=== PATIENT | male | born 1940 | race Caucasian/White ===

== ENCOUNTER 2019-05-01 08:30 | Outpatient (RCR) | payer MEDICARE, SELFPAY ==
[2018-10-10 14:31] VITALS: BMI 32.5
--- NOTE | 2019-03-21 10:01 | HP.PTEVAL_ITS ---
Patient's Visit Information KIARA HAYWOOD is a 78 year old M referred to Physical Therapy by ISAIAH Grant with a diagnosis of Left Shoulder Pain. Date of Evaluation: 03/21/19 Physical Therapist: Elsie Stern DPT - Visit Plan Frequency: 2x /Week Duration: 4 Weeks Plan: Focus on scapular s/s and postural corrections. US and TENS as modalities. - Subjective Findings: Patient reports that he has had probems with both shoulders- but the right one bounced back but the left isn't doing great. Tore out property line fence- burning it- picked up a gas can and felt it go. They have been bothering him since summer. Worst at night- he has been sleeping in a chair with a sling the last month and a half. The only position it does not throb. Pain is located in the shoulder and radiate down to the elbow and into the scapula. Worst: 7/10 Agg: sleeping, movement. Eases: bringing it back to the side and keeping the elbow into the side. Describes the pain as pulsating. No blurred vision, dizziness, BARDALES or neck pain. No issues with finger dexterity, benzene worker strength or N/T in the hands. Right hand dominate. Has had no x-rays or MRI. [place] it was improving but it flared again-No injections or medications just sent him to therapy. Meds: none PMHx: Bilateral TKR, back surgery, Bone spur removal on the left shoulder a long time ago- fully recovered. 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 - Objective Posture: FH, RS, increased kyphosis- can correct but does not maintain. Gait: no LE deviation noted- slight decrease in arm swing on the left. Palpation: tender along upper trap, infraspinatus, bicpital groove and down the deltoid. ROM: WFL in all planes but reports pain with abduction and IR. Strength: Ip Technology Transactions Attorney/Wrist: WNL, Elbow: flexion: 4+/5, Extn: 4/5 with pain. Shoulder: flexion/abd: 3+/5 with pain, IR: 4-/5 and ER: 4-/5 with pain. Extn: 4+/5. Special Test: Impingment: positive, Empty Can: positive, Belly lift off: positi ve - Goals Goal 1:: Patient will be I with HEP and progression Goal Time Frame: 4-6 Weeks Goal 2:: Patient will maintain proper posture t/o tx session to demo increased scap s/s. Goal Time Frame: 4-6 Weeks Goal 3:: Patient will report sleeping through the night with no pain in his bed for 3 days Goal Time Frame: 4-6 Weeks Goal 4:: Patient will demo full AROM of the left shoulder with no pain Goal Time Frame: 4-6 Weeks - Rehabilitation Potential Physical Therapy Diagnosis: Patient presents with hypomobility- he has decreased painfree ROM, strength and muscular endurance leading to poor posture and increased pain with ADL's. Rehabilitation Potential: Fair - Anticipated Interventions Therapeutic Exercise to Include: Strength training, Endurance training, Body mechanics, Postural training, Scapular Strength/Stabilization TENS: Yes Cryotherapy (ice pack, ice massage): Yes Thermo therapy (hot pack): Yes Ultrasound (thermal/non thermal): Yes Thank you for the opportunity to evaluate your patient. For Medicare and Medicare HMO plans, please review the plan of care and approve it. It will need to be FAXED BACK to us at [phone] for Medicare purposes. For Medicare only, by signing this I certify the plan of care. Please let me know if there are questions or concerns regarding this plan of care. Physician Signature:__ Date:
--- NOTE | 2019-05-01 09:54 | HP.PTDCSUM ---
HP - PT D/C Summary It has been my pleasure to treat KIARA HAYWOOD under orders from ISAIAH Grant, for the diagnosis of Left Shoulder Pain for a total of 11 visit(s). Discharge Date: Please see the following information for a summary of their discharge status. - Subjective Subjective: Patient reports that the single motion of ER is still really bothering him. He is still having a lot of difficulty at night- he has to watch how he lays. Its improving but it still bothers him- he has been able to run a drill overhead - Overall Improvement % Improvement: 90 - Objective Objective/Function: Posture: fair posture. Gait: no LE deviation noted Palpation: tender along upper trap, infraspinatus, bicpital groove and down the deltoid. ROM: WFL in all planes but reports pain with ER. Strength: Plant Facilities Technician/Wrist: WNL, Elbow: flexion: 4+/5, Extn: 4+/5. Shoulder: flexion/abd: 4/5, IR: 4/5 and ER: 4/5 with pain. Extn: 4+/5. Special Test: Impingment: positive, Empty Can: positive, Belly lift off: positive - Goals Goal 1:: Patient will be I with HEP and progression Goal Progress: Goal Met Goal 2:: Patient will maintain proper posture t/o tx session to demo increased scap s/s. Goal Progress: Progressing Goal 3:: Patient will report sleeping through the night with no pain in his bed for 3 days Goal Progress: Progressing Goal 4:: Patient will demo full AROM of the left shoulder with no pain Goal Progress: Progressing - Plan Plan: Discharge- possible follow up with ortho - D/C Information If there are questions or concerns regarding this patient's physical therapy, please feel free to call me at [phone]. Thank you for the referral of this patient. Sincerely, Elsie Stern DPT
== END 2019-05-01 19:00 | disposition home or self-care (01) ==
LOC: PT 08:30
PROVIDERS: Family Provider Preventive Medicine Occupational Medicine; PCP Preventive Medicine Occupational Medicine; Referring Provider Physician Assistant Surgical; Visit Provider Physician Assistant Surgical
DX: M75.82 Other shoulder lesions, left shoulder (principal)
CPT/HCPCS: 97110; 97161; 97164

== ENCOUNTER → 2019-09-18 08:41 | Outpatient (CLI) | payer MEDICARE, SELFPAY ==
[2019-09-18 08:39] VITALS: BMI 32.5
--- NOTE | 2019-09-18 08:42 | RAD_ITS ---
STUDY: X-RAY - LEFT FOOT CLINICAL: Male, 79 years old. WOUND DISTAL 1ST AND 2ND METATARSAL TECHNIQUE: 3 view(s) of the foot. COMPARISON: None. FINDINGS: There is a plantar calcaneal spur. Normal visualized subtalar, talonavicular, calcaneocuboid, tarsal and tarsometatarsal articulations. Normal metatarsi. There is degenerative arthrosis of the metatarsophalangeal joint of the hallux with a hallux valgus deformity. Normal tibial and fibular sesamoid bones. Normal interphalangeal joint of the great toe. Normal phalanges of the great toe. Normal second through fifth metatarsophalangeal joints. Degenerative changes at the second metacarpophalangeal joint. Soft tissue swelling overlying the great toe. RAD/Foot min 3 Views IMPRESSION: Soft tissue swelling overlying the great toe. Degenerative changes of the first metatarsophalangeal joint with hallux valgus deformity. Electronically Signed: Tobin Pak, at 9:26 EDT , Service support ,
== END ==
PROVIDERS: PCP Preventive Medicine Occupational Medicine; Referring Provider Physician Assistant Surgical; Visit Provider Physician Assistant Surgical
DX: S91.302A Unspecified open wound, left foot, initial encounter (principal)
CPT/HCPCS: 73630

== ENCOUNTER → 2022-03-26 | Outpatient (CLI) | payer MEDICARE, SELFPAY ==
--- NOTE | 2022-03-26 10:52 | ST.MBS ---
Modified Barium Swallow - Patient Information Study Date: 03/26/22 Study Time: 10:00 Direct Billable Minutes: 85 Total Minutes procedure & reportin Diagnosis: Dysphagia, unspecified (R13.10) Referring Physician: Gary Minor Reason for Referral: Objectively assess swallow function, risk for aspiration, and determine recommendations for least restrictive diet textures and compensatory strategies to improve safety of swallow. Medical History: The patient is a 81-year-old male with PMH including hiatal hernia, NELLY, septum surgery, and GERD. Per patient, he has been following with Dr. Minor for swallowing difficulty. His swallowing difficulty started ~1 year ago and is characterized by difficulty with sensation of retention of foods (most of the time) in his middle esophagus followed by hiccups, coughing, and regurgitation of foods. Per patient, he has had a previous test where he had to swallow something chalky and it went down the wrong way. The study was discontinued. From pt description, FOUNTAIN MANAGER is suspecting aspiration event during a barium esophagram. Pt also reported he had and upper GI last week with no significant findings able to be reported by the patient, but he thinks he may have been dilated upon FOUNTAIN MANAGER asking. Study confirmed he has a large hiatal hernia per patient report. He was referred for MBSS by Dr. Minor to further assess concerns for dysphagia and aspiration risk. Current Diet Ordered: Regular textures / Thin liquids Dentition: WNL Mental Status: WNL - Some difficulty reporting details and results of recent GI testing. Respiratory Status: Oxygenating on Room Air - Penetration-Aspiration Scale Penetration-Aspiration Scale: OBJECTIVE ASSESSMENT OF SWALLOW FUNCTION (QUANTITATIVE ? PER TRIAL): PENETRATION / ASPIRATION SCALE (ESTRADA): 1 = does not enter airway 2 = enters airway/above vocal folds/ejected 3 = enters airway/above vocal folds/not ejected 4 = enters airway/contacts vocal folds/ejected 5 = enters airway/contacts vocal folds/not ejected 6 = enters airway/below vocal folds/ejected 7 = enters airway/below vocal folds/not ejected despite effort 8 = enters airway/below vocal folds/no effort VIDEOFLOROSCOPIC SCALE SCORE (ESTRADA): Grade I = aspiration of material that has penetrated into the laryngeal vestibule, intact cough reflex Grade II = aspiration < 10 % of the bolus, intact cough reflex Grade III = aspiration of < 10 % of the bolus, reduced cough reflex or aspiration of > 10 % of the bolus, intact cough reflex Grade IV = aspiration of > 10 % of the bolus, reduced cough reflex - Penetration-Aspiration Scale Score Thin Liquid via teaspoon Result: 1= does not enter airway Thin Liquid via teaspoon Trial 2 Result: 2= enter airway/above vocal folds/ejected Thin Liquid via large single sip from cup Result: 1= does not enter airway Thin Liquid via sequential sips from cup Result: 2= enter airway/above vocal folds/ejected Stoddard Thick Liquid via small single sip from cup Result: 1= does not enter airway Honey Thick Liquid via small single sip from cup Result: 1= does not enter airway Pudding via teaspoon with esophageal screen Result: 1= does not enter airway Thin Liquid via single sip from straw with esophageal screen Result: 2= enter airway/above vocal folds/ejected 1/2 Cookie Result: 1= does not enter airway Thin Liquid via sequential sips from straw with esophageal screen Result: 2= enter airway/above vocal folds/ejected - Oral Phase Labial Seal: No Labial Escape Tongue Control During Bolus Hold: Posterior escape of less than half of bolus Bolus Preparation/Mastication: Timely and efficient chewing and mashing Bolus Transport/Lingual Motion: Brisk tongue motion Oral Residue: Trace residue lining oral structures - Pharyngeal Phase Initiation of Pharyngeal Swallow: Bolus head at posterior laryngeal surgace of epiglottis Soft Palate Elevation: Trace column of contrast/air between soft palate and pharyngeal wall Laryngeal Elevation: Partial superior movement thyroid cart/partial apprx aryt-epig petiole Anterior Hyoid Excursion: Complete anterior movement Epiglottic Movement: Complete inversion Laryngeal Vestibule Closure at Height of Swallow: Incomplete; narrow column of air/contrast in laryngeal vestibule Pharyngeal Stripping Wave: Present - complete Pharyngoesophageal Segment Opening: Parital distension and partial duration; parital obstruction of flow Tongue Base Retraction: Narrow column of contrast between tongue base & post. pharyngeal wall Pharyngeal Residue: Trace residue within or on pharyngeal structures - Esophageal Phase Esophageal Clearance: Esophageal retention w/ retrograde flow through pharyngoesophageal seg - Treatment Strategies Effects of treatment strategies attemped:: Thin liquid wash to clear esophageal retention = Effective. - Diagnosis/Impression Diagnosis: Oropharyngeal swallow function grossly WNL; Esophageal dysphagia (R13.14) Impression: Overall, the patient presented with a functional oropharyngeal swallow and good airway closure during the swallow. He had mild delay initiating the swallow and mildly reduced laryngeal elevation; however, he experienced only trace laryngeal penetration of certain thin liquid trials with full ejection from the laryngeal vestibule. No aspiration observed during the study. The patient did present with some esophageal deficits, including trace retention in upper esophagus with trace retrograde flow through the upper esophageal sphincter (UES). He did present with cervical osteophytes at the level of C5-C6. He also presented with esophageal retention of majority pudding bolus in the lower and middle esophagus with retrograde flow remaining below the UES. Thin liquid wash effectively cleared esophageal retention of pudding bolus. Final esophageal screen of sequential thin liquids via straw showed good esophageal clearance, as well. The FOUNTAIN MANAGER feels he will greatly benefit from use of alternating bites and sips to decrease risk for esophageal retention with eventual regurgitation, as well as his risk for reflux aspiration. Will recommend the patient follow-up with his elevator installer, Dr. Minor, regarding the results of this study. - Recommendations Diet: Regular Textures, Thin Liquids Comment: If continued retention and regurgitation despite use of strategies, will recommend consuming 4-5 smaller meals daily versus 3 larger meals. Compensatory Strategies: Small Bites, Small Sips, Slow Rate - Sips one at a time, Alternate bites/solids and sips/liquids - Take a drink after every 1-2 bites, Sitting upright, Remain sitting upright for 30 minutes after PO intake Recommend Repeat Modified Barium Swallow: No Need for Skilled Speech Therapy Services: No Recommended Referrals: GI Consult - Continue to follow with Dr. Minor to manage esophageal deficits described above. Education Completed: 1. Described result of evaluation., 5. Patient demonstrates recommended strategies. - Status Active ST Patient: Active - Contact Information [facility] Speech Therapy:: Ceci May M.A. [facility]NA[facility] Speech-Language Pathologist [facility] [address] [place] [address] [email or web address] [phone] 03/26/22 11:13
== END | disposition home or self-care (01) ==
LOC: RAD 09:55
PROVIDERS: PCP Preventive Medicine Occupational Medicine; Referring Provider Internal Medicine Gastroenterology; Visit Provider Internal Medicine Gastroenterology
DX: R13.10 Dysphagia, unspecified (principal); T18.128A Food in esophagus causing other injury, initial encounter; X58.XXXA Exposure to other specified factors, initial encounter
CPT/HCPCS: 74230; 92611

== ENCOUNTER → 2022-04-08 | Outpatient (CLI) | payer MEDICARE, SELFPAY ==
--- NOTE | 2022-04-08 06:51 | CT_ITS ---
STUDY: CT RIGHT SHOULDER REASON FOR EXAM: Male, 82 years old. PAIN IN RT SHOULDER. RADIATION DOSAGE (If Supplied By Facility): CTDIvol = ( 33.34 ) mGy, DLP = ( 932.93 ) mGycm TECHNIQUE: The patient was scanned in a multi detector CT scanner. High resolution transaxial imaging was performed without the administration of intravenous contrast material. Sagittal and coronal images were reconstructed. Individualized dose optimization techniques were used for this CT. COMPARISON: None. FINDINGS: There is moderate osteoarthritis, with moderate articular joint space narrowing and moderate osteoarthritic spurring. Decreased space between the humeral head and the acromion suggestive of rotator cuff pathology. Normal glenoid rim, neck and visualized scapula. Degenerative change are seen in the region of the greater tuberosity of the proximal humerus. Normal coracoid process. Normal visualized lateral clavicle. There is severe hypertrophic osteoarthritis with prominent osseous hypertrophy, with a potential for impingement upon the supraspinatus muscle. There is a Type II morphology (curved), with a neutral orientation. Normal visualized muscles and soft tissue structures. CT/Extremity Upper without Contra IMPRESSION: Hypertrophic osteoarthritis of the acromioclavicular joint as well as osteoarthritis of the glenohumeral joint. Decreased space between the humeral head and the acromion suggestive of rotator cuff pathology. Degenerative changes are seen in the region of the greater tuberosity of the proximal humerus. Electronically Signed: Tobin Pak MD at 14:20 EST ,
== END | disposition home or self-care (01) ==
PROVIDERS: PCP Preventive Medicine Occupational Medicine; Referring Provider Student in an Organized Health Care Education/Training Program; Visit Provider Student in an Organized Health Care Education/Training Program
DX: M19.011 Primary osteoarthritis, right shoulder (principal)
CPT/HCPCS: 73200

== ENCOUNTER 2022-05-06 17:06 | Observation (INO) | payer MEDICARE, SELFPAY ==
--- NOTE | 2022-04-23 07:55 | RAD_ITS ---
INDICATION: PRE-OP EXAMINATION/TECHNIQUE: X-RAY - XR Chest 2 Views COMPARISON: None. FINDINGS: The lungs are clear. Tortuous and calcified thoracic aorta. The heart is not enlarged. No pleural effusion or pneumothorax. Degenerative changes of the thoracic spine. RAD/Chest PA and Lateral IMPRESSION: No acute radiographic abnormalities. Electronically Signed: Elias Pacheco MD at 16:47 EST ,
--- NOTE | 2022-04-23 07:55 | EKG12_ITS ---
Test Reason : PRE OP Blood Pressure : / mmHG Vent. Rate : 072 BPM Atrial Rate : 072 BPM P-R Int : 240 ms QRS Dur : 092 ms QT Int : 362 ms P-R-T Axes : 059 066 087 degrees QTc Int : 396 ms Sinus rhythm with 1st degree A-V block Nonspecific T wave abnormality Abnormal ECG Confirmed by SANIYA DELGADILLO, ARLINE ([id number]), sports editor SHON HARRIS ([id number]) on 04/26/2022 10:40:32 AM Referred By: ROOSEVELT Confirmed By:ARLINE KOTHARI MD
[2022-04-23 09:29] LABS: Absolute Lymphocyte Count 1.71 X10^3/uL (0.83-4.51); Absolute Neutrophil Count 3.8 X10^3/uL (2.0-7.7); Basophil# 0.04 X10^3/uL; Basophil% 0.6 % (0-1); Eosinophil# 0.07 X10^3/uL; Eosinophils% 1.1 % (0-5); Hematocrit 48.9 % (40-54); Hemoglobin 16.5 g/dL (13.0-16.5); Lymphocyte # 1.71 X10^3/ul (0.83-4.51); Lymphocyte % 26.5 % (19-41); Mean Corp Hgb Conc 33.7 g/dL (32-36); Mean Corpuscular Hgb 30.9 pg (27.0-32.0); Mean Corpuscular Volume 91.6 fL (80-94); Monocyte# 0.87 X10^3/uL; Monocyte% 13.5 % (0-10); NRBC Flagged by Analyzer 0 % (0-5); Neutrophil # 3.76 X10^3/uL (2.7-7.7); Neutrophil % 58.1 % (47-70); Platelet Count 211 K/mm3 (150-450); RBC Distribution Width SD 47.4 fl (35.1-43.9); Red Blood Count 5.34 M/mm3 (4.6-6.2); White Blood Count 6.5 K/mm3 (4.4-11.0)
[2022-04-23 09:53] LABS: Anion Gap 10 (5-15); BUN 25 mg/dL (7-18); Calcium,Total 9.4 mg/dL (8.5-10.1); Chloride 105 mmol/L (98-107); Creatinine, Serum 0.96 mg/dL (0.70-1.30); EST Glomerular Filtration Rate 80 mL/min (>60); Est Glom Filt Rate - Afr Amer 96 mL/min (>60); Glucose 124 mg/dL (74-106); Sodium Level 141 mmol/L (136-145)
[2022-04-23 10:06] LABS: Magnesium 2.1 mg/dL (1.6-2.6); Thyroid Stim Hormone (TSH) 3.87 uIU/mL (0.358-3.74)
[2022-05-06] VITALS (8 sets, daily range): BP systolic 122–172; BP diastolic 55–92; PULSE 69–87; RESP 16–18; TEMP 36.4–36.8; O2SAT 93–97; BMI 32.8
[2022-05-06] MEDS: Lactated Ringers 1,000 ML 15 ML IV ×2 (11:30→18:13)
[2022-05-06] MEDS: Celecoxib 200 MG Capsule 400 MG PO (11:35)
[2022-05-06] MEDS: Gabapentin 600 MG Tablet PO (11:35)
[2022-05-06] MEDS: Acetaminophen 500 MG Tablet 1000 MG PO ×2 (11:35→20:21)
--- NOTE | 2022-05-06 13:45 | SHO_PTH ---
PATIENT: KIARA HAYWOOD LOC: MS3 U#:[id number] AGE/SX: 82/M ROOM: MS314 RE05/06/[address]: Dr. Art Gonzales DO : 1940 BED: 1 DIS: 05/07/2022 SPEC #: [id number] RECD: 05/07/22 10:57 STATUS: FREDERIC MCQUEEN #: [id number] ROBIN: 05/06/22 13:[address]: Art Gonzales DEPT: SURGICAL PATHOLOGY RECD BY: Jalen Pryor ENTERED: 05/07/22 12:48 SP TYPE: HUMERUS OTHR DR: Dr. Jaime Brothers DO Tissues: Humerus, NOS Procedures: Decalcification bone/plaque Surgery Specimen Level IV HEADER OPERATION: ERAS, reverse total shoulder arthroplasty PRE-OP DIAGNOSIS: Osteoarthritis right shoulder TISSUE SUBMITTED: Right humeral head MICROSCOPIC DIAGNOSIS Right humeral head, total shoulder replacement: Severe degenerative joint disease. AM:scarlett 05/12/22 MICROSCOPIC DESCRIPTION Slides are reviewed. GROSS DESCRIPTION Received is one container labeled with the patient's name and designated right humeral head. The specimen consists of a humeral head measuring 5.5 x 5 x 2 cm. The articular surface shows areas of erosion and osteophyte formation. No soft tissue is identified. Juice Weigher sections are submitted in two cassettes after decalcification. / MADHAVI:mariusz 05/07/2022 TC: 5 CPT: 15020, 84494
[2022-05-06] MEDS: Cefazolin 2 GM in 0.9% Normal Saline 100 ML IV (15:20)
[2022-05-06] MEDS: TXA 1000mg in NS100 100ml (IVPB at Incision) 660 MG IV (15:25)
[2022-05-06] MEDS: dexAMETHasone 10 MG/ML Vial IV (15:25)
[2022-05-06] MEDS: TXA 1000mg in NS100 100ml (IVPB at Closure) 660 MG IV (16:44)
--- NOTE | 2022-05-06 17:15 | RAD_ITS ---
INDICATION: post op -- AP and Lateral X-Ray of operative shoulder in PACU EXAMINATION/TECHNIQUE: X-RAY - RIGHT XR Shoulder Min 2 Views 2 VIEWS COMPARISON: None. FINDINGS: There is no fracture or dislocation. There is anatomic alignment. The soft tissue planes are preserved. Total shoulder arthroplasty. There is an air-fluid level seen in the shoulder joint. Joint space is preserved. Subcutaneous air is noted. RAD/Shoulder min 2 Views IMPRESSION: Successful total shoulder arthroplasty. Electronically Signed: Gallito Douglass MD at 17:50 EST ,
--- NOTE | 2022-05-06 17:46 | PCM.OPRPT ---
Report of Operation Date of Procedure: 05/06/22 Description of Surgical Findings:: Preoperative diagnosis: Right shoulder rotator cuff arthropathy Postoperative diagnosis: Right shoulder rotator cuff arthropathy Procedure: Right reverse total shoulder arthroplasty Surgeon: Art Gonzales DO Shipyard Painter: CÉSAR Quintanilla Anesthesia: General endotracheal with interscalene block Multi Mission Helicopter Aircrewman: Femi Lion CRNA / Ramses Kaiser CRNA Complications: None apparent Drains: None Estimated blood loss: 200 cc Urinary output: None IV fluids: 800 cc crystalloid Specimens: Right humeral head Surgical implants: Tornier Aequalis PerFORM+ reversed baseplate 29 mm diameter + 3 mm lateralization, standard glenosphere cobalt chrome 42 mm diameter, Tornier perform inlay stem size #3, + 3 mm retentive size number 3 42 mm diameter polyethylene insert, short central post and peripheral screws x4. Surgical indications: This is a 82-year-old male with persistent right shoulder pain. He did have worsening symptoms over the last several months. X-rays revealed rotator cuff arthropathy. He had significant weakness as well. He failed nonoperative management in form of activity modification, NSAIDs, Tylenol, intra-articular corticosteroid injections. I saw the patient in consultation in the office. I recommended a reverse shoulder arthroplasty. We obtained a preoperative CT scan for planning. The risks, benefits, alternatives the procedure was reviewed with the patient and he agreed to proceed. Risks included but were not limited to bleeding, infection, instability, loss of life or limb, risk of anesthesia, neurovascular injury, persistent pain, stiffness, prolonged immobilization, need for additional surgery, loosening of orthopedic hardware. He expressed understanding and wished to proceed with surgery. Surgical details: Patient arrived to [facility] morning of the procedure and was greeted by the same day surgery staff. Prior to his procedure, I greeted the patient in the preoperative holding area I identified the patient by name, record number, and date of . Informed consent was confirmed. The operative extremity was marked. All questions were answered to patient satisfaction. An interscalene block was administered by anesthesia staff prior to the procedure. At time of his procedure, patient was brought to the operative suite and positioned supine on a standard table with a beachchair attachment. General anesthesia was induced after all bony prominences were well-padded. Endotracheal tube was placed. After adequate anesthesia and securing the tube, we prepared the patient to be positioned in the beachchair position. A well-padded school cafeteria head cook was applied. The nonoperative extremity was placed in a well arm walker. He was then brought into the beachchair position after we confirmed an appropriate blood pressure. We then spun the bed 45 degrees. The operative extremity was then prepared. Then the butterfly wing of the bed was removed and a well-padded torso strap was applied to secure the patient to the bed. The operative extremity was now free. We then prepped and draped the right upper extremity in normal, sterile orthopedic fashion. We then performed a timeout with all parties in attendance in agreement with the side, site, and operation be performed. 2 g Ancef was administered prior to incision by anesthesia staff, as well as 1 g TXA IV. No concerns were voiced and we elected to proceed. I first marked a standard deltopectoral incision just lateral to the coracoid process in line with the long axis of the humerus. Skin was sharply incised with 10 blade scalpel. I then dissected bluntly through the subcutaneous layers and found the fat stripe between the deltoid and pectoralis major. The cephalic vein was then identified and protected. It was retracted laterally with the deltoid. I then bluntly dissected underneath the deltoid with a Pedraza elevator. John retractor was placed. The upper 1 cm of the pectoralis major was released. I then identified the long head of the biceps tendon in the intertubercular groove. This was tenodesed in situ with #2 FiberWire. I then amputated the biceps proximal to the tenodesis site and followed the tendon to the supraglenoid tubercle where it was amputated. This identified the lesser and greater tuberosities. The supraspinatus was completely torn and retracted with an exposed greater tuberosity. I then performed a subscapularis peel while rotating the humerus externally. I tagged the subscapularis for possible repair later with a tagging suture. Humeral head was then dislocated anteriorly. Appropriate access to the humeral head was confirmed. I then subluxed the humeral head posteriorly with a Fukuda retractor placed around the posterior lip of the glenoid. Inferior capsule was tension. I was able to palpate the axillary nerve. Inferior capsule was then released to the 4 o'clock position of the glenoid face. 3 sided subscapularis release was performed with Bovie cautery. I then remove the Fukuda retractor and redislocated the shoulder anteriorly. I then made a anatomic neck cut of the cartilaginous surface of the humeral head. Sizing plate for a size # 3 stem was utilized to determine appropriate reaming size. A central pin was placed engaging the lateral cortex of the humerus. A size # 3 reamer was used to ream the humeral metaphysis and prepare for the inlay stem. A canal finding reamer was utilized prior to sequential broaching to a size # 3 short stem with excellent rotational and axial purchase in the humerus. I remove the broach handle left the size # [address] I then subluxed the humerus posterior to the glenoid. I then placed retractors around the posterior and anterior glenoid to expose the glenoid. Glenoid labrum was removed with Bovie cautery protecting the axillary nerve. We then used the custom guide from [employer] to position our centering pin, exiting approximately 25 mm from the joint surface along the anterior scapula. Guide was removed and pin was analyzed and compared to preoperative planning. It appeared to be in appropriate position. The Nautilus shaped reamer was then placed over top of the centering pin. I reamed a flat surface of the glenoid. We then removed the reamer and used the cannulated drill for the short central post. Post and baseplate was assembled on the back table. We then inserted the baseplate and central post the assembled baseplate to an appropriate depth with good press-fit purchase. A [place] was used to confirm depth. Cortical and locking screws then were placed in the peripheral holes with good purchase. The baseplate had excellent purchase and the entire scapula would rotate with rotation of the baseplate. We then impacted the 42 mm glenosphere with a standard eccentricity and tightened the locking screw mechanism. We then removed retractors and turned our attention back to the humerus. I placed a standard +3 millimeters polyethylene insert. I then reduced the shoulder. There was excellent range of motion and stability in all planes of motion. There was good deltoid wrap and reproduction of strap muscle and deltoid tension. We selected this as our final size. Lateral translation of the humerus was unstable with the standard +3 mm insert and elected proceed with a retentive polyethylene. We removed trials from the humerus after final dislocation. I copiously irrigated the canal. Broach was placed on hand and then impacted to an appropriate depth. Final +3 mm retentive polyethylene insert was placed. Final reduction was then performed. The subscapularis was then identified with a tagging suture. Repair would have been likely under undue tension and likely failed. I elected to not perform a subscapularis repair. We then copiously irrigated the wound with sterile Betadine and normal saline solution. We reapproximated the interval with 0 Vicryl suture. Subcutaneous layers were reapproximated with 2 -0 Vicryl suture. Skin was finally closed running V-Loc 3-0 Monocryl suture and Dermabond. A sterile silver Mepilex dressing was applied. Patient was then placed in an ultra sling. Patient tolerated procedure well without complication. He was positioned back in the supine position extubated in the operative suite. He was transferred to the rredby and subsequently to PACU in stable condition. Intraoperative medications: 2 g Ancef IV, 1 g TXA IV x2 Post Operative Plan: Patient will be placed in observation overnight for early convalescence and monitoring. Plan for discharge home tomorrow. Weightbearing: Nonweightbearing operative upper extremity, okay for pendulums. Range of motion of wrist elbow and hand as tolerated. Antibiotics: 2 g Ancef IV prior to incision, 24 hours IV antibiotics postoperatively DVT Prophylaxis: Aspirin 81 mg twice daily x 28 days starting postoperative day #1 Jackson: None Dressing: Maintain silver dressing x7 days. Okay to shower dressing on started on day 4 X-Rays: 2 weeks postop in the office Pain Medication: Oxycodone Rx upon discharge Follow-up: 2 weeks post-operatively with me in the office
--- NOTE | 2022-05-06 18:43 | NURSING ---
ac/pacu orders dc'd
[2022-05-06] MEDS: Senna/Docusate Sodium 1 Tablet 2 TABLET PO (20:21)
[2022-05-06] MEDS: 0.9% Saline Lock 10 ML Syringe IV (23:04)
[2022-05-06] MEDS: Cefazolin 1 GM/50 ML BAG IV (23:05)
[2022-05-07 02:45] VITALS: BP 137/85; PULSE 83; RESP 18; TEMP 36.5; O2SAT 94
[2022-05-07 03:21] VITALS: O2SAT 94
[2022-05-07 06:38] VITALS: BP 126/79; PULSE 76; RESP 18; TEMP 37.1; O2SAT 94
[2022-05-07] MEDS: Cefazolin 1 GM/50 ML BAG IV (06:43)
[2022-05-07] MEDS: Acetaminophen 500 MG Tablet 1000 MG PO (06:44)
[2022-05-07 06:45] LABS: Hematocrit 46.2 % (40-54); Hemoglobin 15.9 g/dL (13.0-16.5); Mean Corp Hgb Conc 34.4 g/dL (32-36); Mean Corpuscular Hgb 31.3 pg (27.0-32.0); Mean Corpuscular Volume 90.9 fL (80-94); Mean Platelet Vol. 10.9 fl (6.2-12.0); Platelet Count 175 K/mm3 (150-450); RBC Distribution Width SD 46.4 fl (35.1-43.9); Red Blood Count 5.08 M/mm3 (4.6-6.2); White Blood Count 17.1 K/mm3 (4.4-11.0)
[2022-05-07] MEDS: Levothyroxine 100 MCG Tablet PO (06:45)
[2022-05-07 07:09] VITALS: O2SAT 94
[2022-05-07 07:11] LABS: Anion Gap 9 (5-15); BUN 18 mg/dL (7-18); BUN/Creat Ratio 19.3 RATIO (10-20); Chloride 107 mmol/L (98-107); Creatinine, Serum 0.93 mg/dL (0.70-1.30); EST Glomerular Filtration Rate 83 mL/min (>60); Est Glom Filt Rate - Afr Amer 100 mL/min (>60); Estimated Creatinine Clearance 65.22 ml/min; Glucose 212 mg/dL (74-106); Potassium 4.3 mmol/L (3.5-5.1); Sodium Level 140 mmol/L (136-145)
--- NOTE | 2022-05-07 07:25 | PCM.PN.ORT ---
Subjective Subjective Patient seen and examined. Pain controlled with current pain regimen. Denies fevers, chills, nausea or vomiting, chest pain or shortness of breath. Tolerating oral intake. Objective Data Objective Data Vital Signs: Vital Signs Temp Pulse Resp BP Pulse Ox O2 Del Method O2 Flow Rate 98.8 F 76 18 126/79 H 94 Room Air 2 05/07/22 06:38 05/07/22 06:38 05/07/22 06:38 05/07/22 06:38 05/07/22 06:38 05/07/22 06:38 05/07/22 02:45 Oxygen Flow Rate (L/min) 2 Oxygen Delivery Method Room Air Weight: 235 lb 14.314 oz Body Mass Index (BMI) 32.8 Intake & Output: Intake and Output for Last 24 Hours 05/05/22 05/06/22 05/07/22 23:59 23:59 23:59 Intake Total 1750 / 1750 850 / 850 Output Total 1000 / 1000 950 / 950 Balance 750 / 750 -100 / -100 Lab / Micro Data Result Diagrams: 05/07/22 06:05 05/07/22 06:05 Labs: Laboratory Results - last 24 hr 05/07/22 06:05: WBC 17.1 H, RBC 5.08, Hgb 15.9, Hct 46.2, MCV 90.9, MCH 31.3, MCHC 34.4, RDW Std Deviation 46.4 H, RDW Coeff of Nick 14.0, Plt Count 175, MPV 10.9 05/07/22 06:05: Sodium 140, Potassium 4.3, Chloride 107, Carbon Dioxide 24.0, Anion Gap 9, BUN 18, Creatinine 0.93, Estim Creat Clear Calc 65.22, Est GFR (MDRD) Af Amer 100, Est GFR (MDRD) Non-Af 83, BUN/Creatinine Ratio 19.3, Glucose 212 H, Calcium 9.0 Micro: Microbiology 04/23/22 08:16 Swab (Method) Nasal Screen MRSA/MSSA - Final Radiography Diagnostic Testing: Radiology Impression Shoulder X-Ray 05/06/22 17:15 IMPRESSION: Successful total shoulder arthroplasty. Electronically Signed: Gallito Douglass MD at 17:50 EST , Physical Exam Narrative General - A&Ox3, NAD. VSS/AF. Right upper Extremity - SILT & 5/5 in radial, ulnar, musculocutaneous, axillary, and median nerve distributions. Radial, ulnar pulses 2+. Compartments soft and compressible. BCR in finger tips. Incisional dressing C/D/I. Negative Homans' sign bilaterally Assessment & Plan Assessment/Plan (1) Post-op pain: PLAN: POD#1 s/p right reverse shoulder arthroplasty -Doing well this morning. Pain controlled. - Pain control - OT - DVT PPX -aspirin 81 mg twice daily, ORION [place]ards, early mobilization -Plan for discharge home today after therapy goals are met
--- NOTE | 2022-05-07 07:31 | PCM.DC ---
Discharge Instructions Follow Up Care Test Results: Test results from this visit will be discussed in further detail at your follow-up appointment, if applicable. Discharge Plan Admission Admit Date/Time: 05/06/22 18:15 Primary Reason for Your Visit: Right shoulder replacement Attending Provider: Art Gonzales Primary Care Provider: Jaime Brothers Instructions Additional Instructions / Restrictions: Follow preprinted instructions for surgeons office Discharge Orders/Prescriptions Prescriptions: New aspirin 81 mg Tablet,Delayed Release (Dr/Ec) 81 mg PO BID 28 Days Qty: 56 0RF sennosides-docusate sodium [Stool Softener-Stimulant Laxat] 8.6-50 mg Tablet 2 tab PO BID 7 Days Qty: 28 0RF oxycodone 5 mg Tablet 5 - 10 mg PO Q4H PRN PRN (Reason: Pain Score 4-10) 7 Days Qty: 42 0RF Continued ascorbic acid (vitamin C) 1,000 MG tablet 400 mg PO BID Label Comments: supplement vitamin E 200 UNIT capsule 200 unit PO DAILY Label Comments: supplement saw palmetto 160 MG capsule 900 mg PO DAILY Label Comments: supplement niacin 250 MG tablet extended release 250 mg PO DAILY Label Comments: CHOLESTEROL magnesium 250 MG tablet 300 mg PO DAILY Label Comments: supplement coenzyme Q10 100 MG capsule 200 mg PO BID Label Comments: supplement lycopene 10 MG capsule 20 mg PO DAILY cholecalciferol (vitamin D3) 1,000 UNIT tablet 4,000 unit PO BID Label Comments: supplement copper gluconate 2 MG capsule 2 mg PO DAILY Label Comments: supplements saw-vit E-sod ucs-xxk-tllo-pyg 1 EACH tablet 1 ea PO BID Label Comments: prostate glucosam-chondr msm6-manganese 1 EACH capsule 2 ea PO BID Label Comments: JOINT Desura blahb-1c-aok-epa-fish oil-D3 1 EACH capsule 2 ea PO BID Label Comments: supplement acetaminophen 500 MG tablet 1,000 mg PO Q8H PRN PRN (Reason: Pain) Qty: 90 0RF Label Comments: PAIN iron aspgl,ps complex-vit C-sa 150 MG capsule 150 mg PO DAILYCM Qty: 30 0RF Label Comments: IRON/VIT C SUPPLEMENT celecoxib 200 mg capsule 200 mg PO DAILY Label Comments: take 1 capsule by mouth once daily levothyroxine 100 mcg tablet 100 mcg PO DAILY Label Comments: take 1 tablet by mouth once daily pantoprazole 40 mg tablet,delayed release (DR/EC) 40 mg PO DAILY Label Comments: take 1 tablet by mouth once daily azelastine 137 mcg (0.1 %) aerosol,spray 1 spray INTRANASAL PRN PRN (Reason: ALLERGIES) Label Comments: instill 1 spray into each nostril twice a day turmeric 400 mg Capsule 500 mg PO BID Referrals / Follow Up: Art Gonzales DO [Med Staff - Active Staff] - Jaime Brothers DO [Primary Care Provider] - Disposition Disposition (needs filled in before D/C Order can be placed): Home, Self Care
[2022-05-07] MEDS: Senna/Docusate Sodium 1 Tablet 2 TABLET PO (08:09)
[2022-05-07] MEDS: Aspirin E.C. 81 MG Tablet PO (08:10)
[2022-05-07] MEDS: Pantoprazole Sodium 40 MG Tablet PO (08:10)
[2022-05-07] MEDS: Celecoxib 200 MG Capsule PO (08:10)
[2022-05-07] MEDS: 0.9% Saline Lock 10 ML Syringe IV (08:27)
[2022-05-07 10:40] VITALS: BP 141/65; PULSE 83; RESP 18; TEMP 36.4; O2SAT 95
--- NOTE | 2022-05-07 11:15 | CASEMGMT ---
RN LUIS ENRIQUE FISHING ACCESSORIES MAKER CM to room to meet with patient for initial transition planning/care coordination assessment. RN LUIS ENRIQUE introduced self and role at [facility].? Pt voices understanding and consents to assessment at this time.? Pt sitting up in chair in room in no distress at this time.? Pt is A/O at this time and answers all questions appropriately.?? Care providers, pharmacy, and demographics verified/updated at this time. PCP: Dr Brothers Specialists: Dr Gonzales-moiz [facility] Insurance: [place] [employer] [facility] Prescription Benefit:? Yes Living Will/HPOA:? Has both LW and HCPOA, who is his , Amberly LNOK: , Amberly Living Arrangements: Lives w/ in 2-story home w/3-4 steps to enter. Indep prior to surgery. able to assist as needed. Transportation: Pt states drives self and states no transportation concerns at this time.? also drives. DME: ?States has the following DME:? cane collection, but he does not use them, sling, handrails. ?Pt states no need for further DME at this time.? HHC/SNF: No hx of either. Pt plans to go to OP therapy @ [facility]. 1st appt is 05/21. Pt also has appt to see Dr Gonzales that day. Pt wishes to return home and states has no concerns with going home at time of discharge.? Pt voices no concerns/needs at this time.? PLAN: ?Home w/OP therapy @ [facility] Erick MURPHY RN, CM
--- NOTE | 2022-05-07 12:24 | PHA.DC.MC ---
Pharmacy Service has performed discharge medication reconciliation and counseling for this patient. 1. ASPIRIN 81MG PO BIDCM X 28 DAYS 2. SENNA/DOCUSATE 2T PO BID X 7 DAYS 3. OXYCODONE 5-10MG PO Q4H PRN PAIN 4-10 The patient's discharge medication list was reviewed for discrepancies and discrepancies were resolved. Home Medications ascorbic acid (vitamin C) 1,000 mg tablet 400 mg PO BID 04/18/15 cholecalciferol (vitamin D3) 25 mcg (1,000 unit) tablet 4,000 unit PO BID 04/18/15 coenzyme Q10 100 mg capsule 200 mg PO BID 04/18/15 copper gluconate 2 mg capsule 2 mg PO DAILY 04/18/15 glucosamine 467 mg-chondroitin msm no.6 438 mg-manganes 0.7 mg capsule 2 ea PO BID 04/18/15 lycopene 10 mg capsule 20 mg PO DAILY 04/18/15 magnesium 250 mg tablet 300 mg PO DAILY 04/18/15 niacin 250 mg tablet,extended release 250 mg PO DAILY 04/18/15 jxvwb-3s-kht-epa-fish oil-D3 300 mg-1,200 mg-1,000 unit capsule 2 ea PO BID 04/18/15 saw palm 160 mg-vit E 100 unit-selen 100 rfh-juln-xhyetx-pygeum tablet 1 ea PO BID 04/18/15 saw palmetto 160 mg capsule 900 mg PO DAILY 04/18/15 vitamin E 200 unit capsule 200 unit PO DAILY 04/18/15 acetaminophen 500 mg tablet 1,000 mg PO Q8H PRN PRN Pain #90 tabs 05/08/15 iron aspgl and ps cmplx 150 mg-vit C 50 mg-succinic acid 50 mg capsule 150 mg PO DAILYCM #30 caps 05/08/15 azelastine 137 mcg (0.1 %) nasal spray aerosol 1 spray intranasal PRN PRN ALLERGIES 04/21/22 celecoxib 200 mg capsule 200 mg PO DAILY 04/21/22 levothyroxine 100 mcg tablet 100 mcg PO DAILY 04/21/22 pantoprazole 40 mg tablet,delayed release 40 mg PO DAILY 04/21/22 turmeric 400 mg capsule 500 mg PO BID 04/21/22 aspirin 81 mg tablet,delayed release 81 mg PO BID 28 days #56 tabs 05/07/22 oxycodone 5 mg tablet 5 - 10 mg PO Q4H PRN PRN Pain Score 4-10 7 days #42 tabs 05/07/22 sennosides 8.6 mg-docusate sodium 50 mg tablet (Stool Softener-Stimulant Laxative) 2 tab PO BID 7 days #28 tabs 05/07/22 The patient was counseled on the following discharge medications and changes in medications for homegoing were reviewed. The Reason for Use, instructions for use, and potential side effects were reviewed for all new medications. The patient's questions regarding all of their medications were answered. The patient was able to verbally demonstrate an understanding of their discharge medications.
--- NOTE | 2022-05-07 12:40 | PCM.DC.SUM ---
Providers Date of Admission: 05/06/22 Primary Care Physician: Dr. Jaime Brothers DO Reason For Visit: RT TOTAL SHOULDER REVERSE Diagnosis Discharge Diagnosis (1) Post-op pain: Status: Acute Code(s): G89.18 - Other acute postprocedural pain Plan: POD#1 s/p right reverse shoulder arthroplasty -Doing well this morning. Pain controlled. - Pain control - OT - DVT PPX -aspirin 81 mg twice daily, ORION [place], early mobilization -Plan for discharge home today after therapy goals are met Medications at Discharge Home Medications ascorbic acid (vitamin C) 1,000 mg tablet 400 mg PO BID 04/18/15 cholecalciferol (vitamin D3) 25 mcg (1,000 unit) tablet 4,000 unit PO BID 04/18/15 coenzyme Q10 100 mg capsule 200 mg PO BID 04/18/15 copper gluconate 2 mg capsule 2 mg PO DAILY 04/18/15 glucosamine 467 mg-chondroitin msm no.6 438 mg-manganes 0.7 mg capsule 2 ea PO BID 04/18/15 lycopene 10 mg capsule 20 mg PO DAILY 04/18/15 magnesium 250 mg tablet 300 mg PO DAILY 04/18/15 niacin 250 mg tablet,extended release 250 mg PO DAILY 04/18/15 uykor-4g-oee-epa-fish oil-D3 300 mg-1,200 mg-1,000 unit capsule 2 ea PO BID 04/18/15 saw palm 160 mg-vit E 100 unit-selen 100 jpe-wchc-fsekfk-pygeum tablet 1 ea PO BID 04/18/15 saw palmetto 160 mg capsule 900 mg PO DAILY 04/18/15 vitamin E 200 unit capsule 200 unit PO DAILY 04/18/15 acetaminophen 500 mg tablet 1,000 mg PO Q8H PRN PRN Pain #90 tabs 05/08/15 iron aspgl and ps cmplx 150 mg-vit C 50 mg-succinic acid 50 mg capsule 150 mg PO DAILYCM #30 caps 05/08/15 azelastine 137 mcg (0.1 %) nasal spray aerosol 1 spray intranasal PRN PRN ALLERGIES 04/21/22 celecoxib 200 mg capsule 200 mg PO DAILY 04/21/22 levothyroxine 100 mcg tablet 100 mcg PO DAILY 04/21/22 pantoprazole 40 mg tablet,delayed release 40 mg PO DAILY 04/21/22 turmeric 400 mg capsule 500 mg PO BID 04/21/22 aspirin 81 mg tablet,delayed release 81 mg PO BID 28 days #56 tabs 05/07/22 oxycodone 5 mg tablet 5 - 10 mg PO Q4H PRN PRN Pain Score 4-10 7 days #42 tabs 05/07/22 sennosides 8.6 mg-docusate sodium 50 mg tablet (Stool Softener-Stimulant Laxative) 2 tab PO BID 7 days #28 tabs 05/07/22 Hospital Course Summary of Care Provided Minutes Spent on Discharge: 15 Hospital Course: Patient underwent uncomplicated right reverse total shoulder arthroplasty 05/06/22. He tolerated the procedure well. He was placed in observation overnight. His pain is adequately controlled postoperative day #1. He worked well with occupational therapy. He is able to be safely discharged home on postoperative day #1. No medical or surgical complications were encountered throughout his stay. Physical Exam Narrative General - A&Ox3, NAD. VSS/AF. Right upper Extremity - SILT & 5/5 in radial, ulnar, musculocutaneous, axillary, and median nerve distributions. Radial, ulnar pulses 2+. Compartments soft and compressible. BCR in finger tips. Incisional dressing C/D/I. Negative Homans' sign bilaterally Weight / BMI Weight Weight: 235 lb 14.314 oz Body Mass Index (BMI) 32.8 ABG / Lab / Microbiology Data Result Diagrams: 05/07/22 06:05 05/07/22 06:05 Laboratory: Laboratory Results - last 24 hr 05/07/22 06:05: WBC 17.1 H, RBC 5.08, Hgb 15.9, Hct 46.2, MCV 90.9, MCH 31.3, MCHC 34.4, RDW Std Deviation 46.4 H, RDW Coeff of Nick 14.0, Plt Count 175, MPV 10.9 05/07/22 06:05: Sodium 140, Potassium 4.3, Chloride 107, Carbon Dioxide 24.0, Anion Gap 9, BUN 18, Creatinine 0.93, Estim Creat Clear Calc 65.22, Est GFR (MDRD) Af Amer 100, Est GFR (MDRD) Non-Af 83, BUN/Creatinine Ratio 19.3, Glucose 212 H, Calcium 9.0 Microbiology: Microbiology 04/23/22 08:16 Swab (Method) Nasal Screen MRSA/MSSA - Final Radiography Diagnostic Testing: Radiology Impression Shoulder X-Ray 05/06/22 17:15 IMPRESSION: Successful total shoulder arthroplasty. Electronically Signed: Gallito Douglass MD at 17:50 EST Reading Location ID and State: [facility] / [place] , Service support , Meaningful Use Info Meaningful Use Diagnoses (Choose all that apply): None applicable Discharge Plan Admission Admit Date/Time: 05/06/22 18:15 Primary Reason for Your Visit: Right shoulder replacement Attending Provider: Art Gonzales Primary Care Provider: Jaime Brothers Instructions Additional Instructions / Restrictions: Follow preprinted instructions for surgeons office Discharge Orders/Prescriptions Prescriptions: New aspirin 81 mg Tablet,Delayed Release (Dr/Ec) 81 mg PO BID 28 Days Qty: 56 0RF sennosides-docusate sodium [Stool Softener-Stimulant Laxat] 8.6-50 mg Tablet 2 tab PO BID 7 Days Qty: 28 0RF oxycodone 5 mg Tablet 5 - 10 mg PO Q4H PRN PRN (Reason: Pain Score 4-10) 7 Days Qty: 42 0RF Continued ascorbic acid (vitamin C) 1,000 MG tablet 400 mg PO BID Label Comments: supplement vitamin E 200 UNIT capsule 200 unit PO DAILY Label Comments: supplement saw palmetto 160 MG capsule 900 mg PO DAILY Label Comments: supplement niacin 250 MG tablet extended release 250 mg PO DAILY Label Comments: CHOLESTEROL magnesium 250 MG tablet 300 mg PO DAILY Label Comments: supplement coenzyme Q10 100 MG capsule 200 mg PO BID Label Comments: supplement lycopene 10 MG capsule 20 mg PO DAILY cholecalciferol (vitamin D3) 1,000 UNIT tablet 4,000 unit PO BID Label Comments: supplement copper gluconate 2 MG capsule 2 mg PO DAILY Label Comments: supplements saw-vit E-sod tdo-zye-bfmb-pyg 1 EACH tablet 1 ea PO BID Label Comments: prostate glucosam-chondr msm6-manganese 1 EACH capsule 2 ea PO BID Label Comments: [facility] wjdqg-6w-rqt-epa-fish oil-D3 1 EACH capsule 2 ea PO BID Label Comments: supplement acetaminophen 500 MG tablet 1,000 mg PO Q8H PRN PRN (Reason: Pain) Qty: 90 0RF Label Comments: PAIN iron aspgl,ps complex-vit C-sa 150 MG capsule 150 mg PO DAILYCM Qty: 30 0RF Label Comments: IRON/VIT C SUPPLEMENT celecoxib 200 mg capsule 200 mg PO DAILY Label Comments: take 1 capsule by mouth once daily levothyroxine 100 mcg tablet 100 mcg PO DAILY Label Comments: take 1 tablet by mouth once daily pantoprazole 40 mg tablet,delayed release (DR/EC) 40 mg PO DAILY Label Comments: take 1 tablet by mouth once daily azelastine 137 mcg (0.1 %) aerosol,spray 1 spray INTRANASAL PRN PRN (Reason: ALLERGIES) Label Comments: instill 1 spray into each nostril twice a day turmeric 400 mg Capsule 500 mg PO BID Referrals / Follow Up: Art Gonzales DO [Med Staff - Active Staff] - Jaime Brothers DO [Primary Care Provider] - Disposition Disposition (needs filled in before D/C Order can be placed): Home, Self Care
== END 2022-05-07 12:10 | disposition home or self-care (01) ==
LOC: MS3 05-07 07:25 → SDC 05-11 10:52 → MS3 05-11 10:52
PROVIDERS: Anesthesiology; Admitting Provider Student in an Organized Health Care Education/Training Program; PCP Preventive Medicine Occupational Medicine; Referring Provider Student in an Organized Health Care Education/Training Program; Visit Provider Student in an Organized Health Care Education/Training Program
PROC: (CPT 23472; principal; 2022-05-06 13:15)
DX: M19.011 Primary osteoarthritis, right shoulder (principal); E66.8 Other obesity; Z68.33 Body mass index [BMI] 33.0-33.9, adult; Z79.899 Other long term (current) drug therapy; K21.9 Gastro-esophageal reflux disease without esophagitis; G25.81 Restless legs syndrome; R06.02 Shortness of breath; E07.9 Disorder of thyroid, unspecified; R94.31 Abnormal electrocardiogram [ECG] [EKG]; I44.0 Atrioventricular block, first degree; Z86.12 Personal history of poliomyelitis
CPT/HCPCS: 23472; 01638; 64415; 36415; 71046; 73030; 80048; 83735; 84443; 85025; 85027; 87081; 88305; 88311; 93005; 94668; 96365; 96366; 97166; 99221; C1776; J7050; J7120; A4216; G0378; J2405; J3475

== ENCOUNTER → 2023-01-25 | Outpatient (CLI) | payer MEDICARE, SELFPAY ==
--- NOTE | 2023-01-25 11:12 | RAD_ITS ---
PROCEDURE: LUMBAR MYELOGRAM DATE OF EXAMINATION: January 25, 2023 INDICATION: Male, 82 years old. Low back pain. PHYSICIAN: Tobin Pak M.D. CONSENT: The patient''s history and physical findings were reviewed. The lumbar myelogram procedure was discussed with the patient prior to signing a consent. SEDATION: Local anesthesia with 3 mL of 1% lidocaine was used. FLUOROSCOPY TIME (if supplied): (2:00) minutes/seconds. 74.89 mGy Injection Information: 10 cc of Isovue-M 200 Number of images obtained: 4 TECHNIQUE: Digital fluoroscopy was used to identify a safe approach for the lumbar myelogram. The back was prepped and draped in usual fashion. Local anesthesia was utilized. Under fluoroscopic guidance a 22-gauge spinal needle was inserted into the spinal canal at the L2-L3 level. Clear spinal fluid was seen. 10 mL of Isovue 200 M was injected into the spinal canal. There is good opacification of the spinal fluid. There is evidence of spinal stenosis at the L1-L2 and L2-L3 levels. Spinal stenosis also seen at the L3-L4 levels.. RAD/Lumbar Myelogram IMPRESSION: Multilevel spinal stenosis as described. CT scan will follow. Electronically Signed: Tobin Pak MD at 13:12 EDT ,
--- NOTE | 2023-01-25 11:13 | CT_ITS ---
STUDY: CT LUMBAR SPINE WITH INTRATHECAL CONTRAST (LUMBAR CT MYELOGRAM) REASON FOR EXAM: Male, 82 years old. SPINAL STENOSIS RADIATION DOSAGE (If Supplied By Facility): CTDIvol = ( 44.45 ) mGy, DLP = ( 1358.32 ) mGycm P TECHNIQUE: Transaxial images were obtained from the T12 vertebra through the S1 vertebral level, following intrathecal administration of 10 ml of Isovue-M 200 contrast material, performed by Dr. Pasha Corral. Please refer to this physicians technical notes for procedural details. Coronal and sagittal reconstructions were obtained. Individualized dose optimization techniques were used for this CT. COMPARISON: None. FINDINGS: There is straightening of the normal lumbar lordosis. There is a minimal levo-scoliosis of the lumbar spine. Multilevel spondylosis. There is dependent layering of contrast material in the distal thecal sac. The conus medullaris terminates in a normal position at the L1-L2 level. There is no demonstrated cauda equina nerve root abnormality or intraspinal mass. L1-2: Mild degree of disc space narrowing. Anterior spondylosis. Facet joint osteoarthritis and hypertrophy. Diffuse posterior disc bulge. Moderate degree of central and bilateral neural foraminal stenosis. L2-3: Marked degree of disc space narrowing and subchondral sclerosis. Spondylosis. Moderate to marked degree of central canal stenosis and bilateral neural foraminal stenosis worse on the right side. Hypertrophy of the ligamentum flavum. L3-4: Moderate degree of disc space narrowing. Spondylosis. Right neural foraminal stenosis. Right central canal stenosis. Facet joint osteoarthritis and hypertrophy. Minimal retrolisthesis of L3 on L4. L4-5: Marked degree of disc space narrowing. Spondylosis. Hypertrophy of the facet joint with the left neural foraminal stenosis. L5-S1: Marked degree of disc space narrowing. Spondylosis. No significant stenosis seen. Degenerative changes of the anterior bilateral sacroiliac joints. Atherosclerotic calcific plaques of the abdominal aorta. CT/Spine Lumbar WITH Contrast IMPRESSION: Multilevel central canal as well as bilateral neural foraminal stenosis. Electronically Signed: Tobin Pak MD at 13:55 EDT ,
[2023-01-25 12:05] VITALS: BP 151/103; PULSE 55; RESP 18; TEMP 36.2; O2SAT 96; BMI 33.2
[2023-01-25] MEDS: Lidocaine 2% (5ml sdv) 5 ML VIAL.MPF INFILT (12:25)
[2023-01-25 13:00] VITALS: BP 151/83; PULSE 64; RESP 18; O2SAT 94
[2023-01-25 13:15] VITALS: BP 150/63; PULSE 65; RESP 18; O2SAT 94
== END | disposition home or self-care (01) ==
LOC: RAD 11:11
PROVIDERS: PCP Preventive Medicine Occupational Medicine; Referring Provider Orthopaedic Surgery; Visit Provider Orthopaedic Surgery
DX: M48.061 Spinal stenosis, lumbar region without neurogenic claudication (principal); M43.16 Spondylolisthesis, lumbar region; M54.16 Radiculopathy, lumbar region
CPT/HCPCS: 62304; 72132

== ENCOUNTER → 2024-08-20 | Outpatient (CLI) | payer MEDICARE, SELFPAY ==
--- NOTE | 2024-08-20 15:46 | RAD_ITS ---
PROCEDURE: HIP, UNI W/ PELVIS 2-3 VIEWS 08/20/2024 REASON FOR EXAM: HIP OSTEOARTHRITIS TECHNIQUE: AP pelvis and two views right hip, 3 total images COMPARISON: None available FINDINGS: Lower lumbar spondylosis/discogenic change. Symmetric appearing SI joints and pubic symphysis appear within limits. Numerous prostate radiation seeds. Moderate appearing right hip osteoarthrosis with joint space narrowing and spurring. No fracture or dislocation. Mild to moderate appearing left hip osteoarthrosis. No osseous lesion identified. RAD/HIP, UNI W/ Pelvis 2-3 Views IMPRESSION: Lower lumbar spondylosis/discogenic change. Numerous prostate radiation seeds. Moderate appearing right hip osteoarthrosis with joint space narrowing and spur ring. No fracture or dislocation. Mild to moderate appearing left hip osteoarthrosis. No osseous lesion identified. Reading Location: [id number]
== END | disposition home or self-care (01) ==
LOC: RAD 15:42
PROVIDERS: PCP Preventive Medicine Occupational Medicine; Referring Provider Anesthesiology Pain Medicine; Visit Provider Anesthesiology Pain Medicine
DX: M16.11 Unilateral primary osteoarthritis, right hip (principal)
CPT/HCPCS: 73502

== ENCOUNTER → 2024-09-05 | Outpatient (CLI) | payer MEDICARE, SELFPAY ==
--- OUTSIDE RECORDS SUMMARY | 2024-09-05 07:17 | XMS RPT_ITS | CCD ---
Author Organization [facility] Care Team Providers Care Personnel Representative Name Role Phone Padmini Jain Unavailable Unavailable PROVIDER, UNKNOWN Unavailable Unavailable Elieser Brothers Unavailable Unavaila ble Unavailable Primary Care Provider Unavailabl e ELIESER BROTHERS DO Primary Care Physician [phone] Elieser Brothers DO Primary Care Provider ELIESER BROTHERS Primary Care Unavailable LANRE PADILLA Referring Unavailable ELIESER BROTHERS Primary Care Unavailable LANRE PADILLA Referring Unavailable LANRE PADILLA Attending Unavailable ELIESER BROTHERS DO Primary Care Physician [phone] Dr. Elieser Brothers Primary Care Provider Dr. Elieser Brothers Referring Provider [phone] ISAIAH Lopez Attending Provider Dr. Kee Dawkins Attending Provider Dr. Art Gonzales Referring Provider [phone] Elieser Brothers DO Primary Care Provider [phone] ELIESER BROTHERS DO Primary Care Unavailable RAVIN WALKER DO Attending Unavailable ELIESER BROTHERS DO Attending Unavailable ELIESER BROTHERS DO Primary Care Unavailable RAVIN WALKER DO Attending Unavailable ELIESER BROTHERS DO Primary Care Unavailable Elieser Brothers DO Primary Care Provider [phone] ELIESER BROTHERS Primary Care Unavailable LANRE PADILLA Attending Unavailable ELIESER BROTHERS DO Attending Unavailable ELIESER BROTHERS DO Primary Care Unavailable ELIESER BROTHERS DO Primary Care Unavailable ELIESER BROTHERS DO Attending Unavailable Kee Dawkins Attending Unavailable Elieser Brothers Primary Care Unavailable Kirsten Ivan Referring Unavailable Kirsten Ivan Attending Unavailable Elieser Brothers Primary Care Unavailable Elieser Brothers Primary Care Unavailable Semaj Muir Referring Unavailable Semaj Muir Attending Unavailable Kirsten Ivan Attending Unavailable Elieser Brothers Referring Unavailable Elieser Brothers Primary Care Unavailable Allergies Allergy Classification Reported Allergen(s) Allergy Type Date of Onset Reaction(s) Facility (4 sources) fexofenadine Drug Allergy 02-01-2021 Other [facility] (1 source) fexofenadine Drug Allergy 07-09-2023 [facility] Repository Medications Current Medications Medication Drug Class(es) Dates Sig (Normalized) Sig (Original) acetaminophen 500 mg oral tablet (4 sources) Start: 05-08-2015 take 1000 mg by mouth every eight hours as needed Acetaminophen Active 1000 MG PO EVERY 8 HOURS NEEDED May 08, 2015 1:00am Ascorbic Acid (16 sources) Vitamin C Start: 09-26-2019 Vitamin C qDay, Pt has 4000-4 per day on his list, 0 Refill(s) Start Date: 09/26/19 Status: Ordered Repeat number: 1 Start: 09-26-2019 Vitamin C qDay , Pt has 4000-4 per day on his list, 0 Refill(s) Start Date: 09/26/19 Status: Ordered Start: 04-18-2015 take 400 mg by mouth twice nava ly Ascorbic Acid (Vitamin C) Active 400 MG PO TWICE A DAY April 18, 2015 1:00am Start: 04-18-2015 take 4000 mg by mouth once nava ly Ascorbic Acid (Vitamin C) Active 4000 MG PO DAILY April 18, 2015 12:00am take 4 tablets by mo [facility] twice daily Ascorbic Acid 1,000 mg tablet Take 4,000 mg by mouth two times a day. Active take 2 tablets by mo [facility] twice daily Ascorbic Acid 1,000 mg tablet Take 2,000 mg by mouth twice daily. 0 Active Comment on above: Take 2,000 mg by oleksandr twice daily. Take 4,000 mg by oleksandr two times a day. azelastine hydrochloride 0.137 mg/actuat metered dose nasal spray (14 sources) Histamine-1 Receptor Antagonist Start: 03-05-2024 End: 02-28-2025 azelastine 137 mcg/inh (0.1%) nasal spray Dose = 1 spray(s), Intranasal, BID, # 3 EA, 3 Refill(s), Pharmacy: [facility]/pharmacy #[id number], 179.5, cm, 12/20/23 10:14:00 EDT, Height, kg, 12/20/23 10:14:00 EDT, Dosing Weight Start Date: 03/05/24 Stop Date: 02/28/25 Status: Ordered Quantity: 3.0 Unit: EA Repeat number: 4 Start: 04-21-2022 Azelastine Act elsa 1 SPRAY INTRANASAL NEEDED April 21, 2022 1:00am Start: 03-03-2022 End: 02-26-2023 azelastine 137 mcg/inh (0.1% ) nasal spray Dose = 1 spray(s), Intranasal, BID, # 3 EA, 3 Refill(s), [facility]acy: [facility] #[id number], 181, cm, 03/03/22 8:04:00 EST, Height, kg, 03/03/22 8:04:00 EST, Dosing Weight Start Date: 03/03/22 Stop Date: 02/26/23 Status: Ordered Start: 08-27-2020 End: 08-22-2021 azelastine 137 mcg/inh (0.1% ) nasal spray Dose = 1 spray(s), Intranasal, BID, # 3 EA, 3 Refill(s), [facility]acy: [facility] 179, cm, 08/27/20 8:10:00 EDT, Height, kg, 08/27/20 8:10:00 EDT, Dosing Weight Start Date: 08/27/20 Stop Date: 08/22/21 Status: Ordered Start: 11-28-2019 take 1 spray(s) nasa l route twice daily azelastine (ASTELIN) 0.1% nasal spray place 1 spray into each nostril twice a day 11/28/2019 Active Comment on above: place 1 spray into e ach nostril twice a day azelastine 137 mcg/inh (0.1%) nasal spray (1 source) Start: 08-27-2020 End: 08-22-2021 azelastine 137 mcg/inh (0.1%) nasal spray Dose = 1 spray(s), Intranasal, BID, # 3 EA, 3 Refill(s), Pharmacy: [facility] 179, cm, 08/27/20 8:10:00 EDT, Height, kg, 08/27/20 8:10:00 EDT, Dosing Weight Start Date: 08/27/20 Stop Date: 08/22/21 Status: Ordered betamethasone 0.5 mg/ml / clotrimazole 10 mg/ml topical cream (8 sources) Azole Antifungal, Corticosteroid Start: 03-26-2020 betamethasone-clotrim azole 0.05%-1% topical cream Apply 1 penelope, Topical, BID, # 45 gram(s), 1 Refill(s), [facility]: [facility] [address] Cream, 181, cm, 02/27/20 9:03:00 EST, Height, 112.7, kg, 02/27/20 9:03:00 EST, Dosing Weight Start Date: 03/26/20 Status: Ordered Start: 03-26-2020 betamethasone- clotrimazole 0.05%-1% topical cream Apply 1 penelope, Topical, BID, # 45 gram(s), 1 Refill(s), [facility] [address] Cream, 181, cm, 02/27/20 9:03:00 EST, Height, 112.7, kg, 02/27/20 9:03:00 EST, Dosing Weight Start Date: 03/26/20 Status: Ordered Blood Glucose Test Machine (1 source) Start: 06-21-2023 Blood Glucose Test Machine See Instructions, Dispense 1 glucometer, insurance preferred, use as directed daily to check blood sugars. Diagnosis: E11.9, # 1 EA, 0 Refill(s), Pharmacy: [facility] #[id number], Type 2 diabetes mellitus, 180.5, cm, 06/21/23 8:33:00 EDT, Height, 109.9, kg, 06/21/23 8:33:00 EDT, Dosing Weight Start Date: 06/21/23 Status: Ordered Quantity: 1.0 Unit: EA Repeat number: 1 Indication: Type 2 diabetes mellitus without complications calcium ascorbate 50 mg / ferrous asparto glycinate 50 mg / polysaccharide iron complex 100 mg / succinic acid 50 mg oral capsule (4 sources) Start: 05-08-2015 take 150 mg by mouth once daily at mealtime Iron Aspgl,Ps Complex-Vit C-Sa Active 150 MG PO DAILY WITH MEALS May 08, 2015 1:00am celecoxib 200 mg oral capsule (7 sources) Nonsteroidal Anti-inflammatory Drug Start: 04-21-2022 take 200 mg by mouth once daily Celecoxib Active 200 MG PO DAILY April 21, 2022 1:00am Start: 02-18-2022 End: 04-19-2022 CeleBREX 200 mg oral capsule Dose : 200 mg = 1 cap(s), Oral, qDay, # 30 cap(s), 1 Refill(s), Pharmacy: [facility] #[id number], Cervical spine arthritis with nerve pain Chronic back pain, 181, cm, 02/18/22 8:08:00 EST, Height Start Date: 02/18/22 Stop Date: 04/19/22 Status: Ordered End: 02-14-2023 take 1 capsule by mouth once daily celecoxib (CELEBREX) 100 mg capsule Take 100 mg by mouth once daily. 0 02/14/2023 Discontinued (Course of therapy completed) Comment on above: Take 100 mg by mouth once daily. cholecalciferol 0.025 mg oral tablet (7 sources) Vitamin D Start: 6 take 4000 [IU] by mouth twice daily Cholecalciferol (Vitamin D3) Active 4000 UNIT PO TWICE A DAY April 18, 2015 1:00am take 1 tablet by mouth twice nava ly cholecalciferol (VITAMIN D3) 5,000 unit tab Take 5,000 Units by mouth twice daily. Active Comment on above: Take 5,000 Units by mouth twice daily. Chondroitin Sulfates / Glucosamine (9 sources) Start: 09-26-2019 take 1 tablet by mouth twice daily Chondroitin-Glucos amine oral tablet Dose = 1 tab(s), BID, 1500mg, 0 Refill(s) Start Date: 09/26/19 Status: Ordered Repeat number: 1 Start: 09-26-2019 take 1 tablet by oleksandr th twice daily Chondroitin-Glucosamine oral tablet Dose = 1 tab(s), BID, 1500mg, 0 Refill(s) Start Date: 09/26/19 Status: Ordered Co-Q10 (1 source) Start: 09-26-2019 copper gluconate 2 mg oral capsule (4 sources) Start: 04-18-2015 take 2 mg by mouth once daily Copper Gluconate Active 2 MG PO DAILY April 18, 2015 1:00am CoQ10 300 mg oral capsule (1 source) Start: 02-09-2023 CoQ10 300 mg oral capsule Dose : 300 mg = 1 cap(s), Oral, BID, # 100 cap(s), 0 Refill(s) Start Date: 02/09/23 Status: Ordered Quantity: 100.0 Unit: cap(s) Repeat number: 1 cyclobenzaprine hydrochloride 10 mg oral tablet (1 source) Muscle Relaxant Start: 05-08-2015 take 10 mg by mouth three times daily as needed Cyclobenzaprine Active 10 MG PO 3 TIMES DAILY NEEDED May 08, 2015 12:00am Fish Oils (1 source) Start: 02-09-2023 Fish Oil 1000 mg oral capsule Dose : 1,000 mg = 1 cap(s), Oral, BID, # 90 cap(s), 0 Refill(s) Start Date: 02/09/23 Status: Ordered Quantity: 90.0 Unit: cap(s) Repeat number: 1 fish,bora,flax oils-om3,6,9no1 (OMEGA 3-6-9) 1,200 mg cap (3 sources) take 2 capsules by mouth twice daily fish,bora,flax oils-om3,6,9no1 (OMEGA 3-6-9) 1,200 mg cap Take 2 capsules by mouth twice daily. Active take 2 capsules by mouth twice d aily fish,bora,flax oils-om3,6,9no1 (OMEGA 3-6-9) 1,200 mg cap Take 2 capsules by mouth twice daily. 0 Active Comment on above: Take 2 capsules by m out twice daily. gluc samayoa/chondro samayoa A/vit C/Mn (GLUCOSAMINE-CHONDROITIN COMPLX ORAL) (3 sources) gluc samayoa/chondro samayoa A/vit C/Mn (GLUCOSAMINE-CHONDROITIN COMPLX ORAL) Take by mouth twice daily. Active gluc samayoa/chondro samayoa A/vit C/Mn (GLUCOSAMINE-CHONDROITIN COMPLX ORAL) Take by mouth twice daily. 0 Active Comment on above: Take by mouth twice daily. Glucosam-Chondr Msm6-Manganese (4 sources) Start: 04-18-2015 Glucosam-Chondr Msm6-Manganese Active 2 EACH PO TWICE A DAY April 18, 2015 1:00am Start: 04-18-2015 Glucosam-Chond r Msm6-Manganese Active 2 EACH PO TWICE A DAY April 18, 2015 12:00am herbal/nutritional product (2 sources) Start: 12-20-2023 herbal/nutriti onal product Glycipine daily to help with BS, 0 Refill(s) Start Date: 12/20/23 Status: Ordered Repeat number: 1 Start: 12-20-2023 herbal/nutriti onal product Sane OTC for cough and lungs, 0 Refill(s) Start Date: 12/20/23 Status: Ordered Repeat number: 1 ibuprofen 200 mg oral tablet (8 sources) Nonsteroidal Anti-inflammatory Drug Start: 09-26-2019 ibuprofen 200 mg oral tablet Dose : 400 mg = 2 tab(s), Oral, q6hr, PRN pain or fever, 0 Refill(s) Start Date: 09/26/19 Status: Ordered levothyroxine sodium 0.1 mg oral tablet (15 sources) l-Thyroxine Start: 02-03-2024 levothyroxine 100 mcg (0.1 mg) oral tablet Dose : 100 mcg = 1 tab(s), Oral, qDay, filling in lieu of pcp, # 90 tab(s), 0 Refill(s), Pharmacy: [facility]/pharmacy #[id number], 179.5, cm, 12/20/23 10:14:00 EDT, Height, kg, 12/20/23 10:14:00 EDT, Dosing Weight Start Date: 02/03/24 Status: Ordered Quantity: 90.0 Unit: tab(s) Repeat number: 1 Start: 04-28-2021 levothyroxine 100 mcg (0.1 mg) oral tablet Dose : 100 mcg = 1 tab(s), Oral, qDay, # 90 tab(s), 3 Refill(s), [facility]: [facility] 181, cm, 02/04/21 8:39:00 EDT, Height, kg, 02/04/21 8:39:00 EDT, Dosing Weight Start Date: 04/28/21 Status: Ordered Start: 09-02-2020 levothyroxine 100 mcg (0.1 mg) oral tablet Dose : 100 mcg = 1 tab(s), Oral, qDay, # 60 tab(s), 0 Refill(s), [facility] [address] [facility], cm, 08/27/20 8:10:00 EDT, Height, kg, 08/27/20 8:10:00 EDT, Dosing Weight Start Date: 09/02/20 Status: Ordered Start: 02-07-2020 take 1 tablet by oleksandr th once daily levothyroxine (SYNTHROID) 100 mcg tablet Take 100 mcg by mouth once daily. 02/07/2020 Active Start: 02-07-2020 take 1 tablet by oleksandr th once daily levothyroxine (SYNTHROID) 88 mcg tablet Take 88 mcg by mouth once daily. 0 02/07/2020 Active Comment on above: Take 88 mcg by mouth once daily. Take 100 mcg by mout h once daily. Zdjhjccnf-Y9-Pbk-Zn-S el-Chrom (1 source) Start: 04-18-2015 Gzefvsdjf-W9-Lcs-Zn- Holly-Chrom Active 1 EACH PO TWICE A DAY April 18, 2015 12:00am loratadine 10 mg oral tablet (1 source) Start: 04-28-2015 take 10 mg by mouth once daily Loratadine Active 10 MG PO DAILY April 28, 2015 12:00am Magnesium (4 sources) Start: 04-18-2015 take 300 mg by mouth once daily Magnesium Active 300 MG PO DAILY April 18, 2015 1:00am Start: 04-18-2015 take 300 mg by mouth once kip y Magnesium Active 300 MG PO DAILY April 18, 2015 12:00am Magnesium Oxide-Mg Amino Aci d Chelate (MAGNESIUM) 300 mg cap (3 sources) Magnesium Oxide- Mg Amino Acid Chelate (MAGNESIUM) 300 mg cap Take by mouth once daily. Active Magnesium Oxide- Mg Amino Acid Chelate (MAGNESIUM) 300 mg cap Take by mouth once daily. 0 Active Comment on above: Take by mouth once d aily. Methylprednisolone (5 sources) Corticosteroid Start: 06-16-2019 Methylprednisolone Active 0 PO per package directions June 15, 2019 11:00pm PO PER PKG DIR Start: 10-10-2018 End: 10-15-2018 take 1 tablet by mouth once Methylprednisolone (Medrol (Silvio)) 4 mg tablets,dose pack Discontinued 4 MG PO per package directions 22 08October 10, 2018 12:00am October 15, 2018 12:09am metoprolol tartrate 50 mg oral tablet (1 source) beta-Adrenergic Niurka Start: 04-18-2015 take 50 mg by mouth once daily Metoprolol Tartrate Active 50 MG PO DAILY April 18, 2015 12:00am Multivitamin preparation (1 source) Start: 12-20-2023 take 1 tablet by mouth once daily Multivitamin Dose = 1 tab(s), Oral, Daily, 0 Refill(s) Start Date: 12/20/23 Status: Ordered Repeat number: 1 niacin 250 mg oral tablet (16 sources) Nicotinic Acid Start: 09-26-2019 niacin 250 mg oral tablet Dose : 250 mg = 1 tab(s), Oral, Daily, 0 Refill(s) Start Date: 09/26/19 Status: Ordered Repeat number: 1 Start: 04-18-2015 take 250 mg by mouth once kip y Niacin Active 250 MG PO DAILY April 18, 2015 1:00am Comment on above: Take 250 mg by mouth daily with breakfast. niacinamide 500 mg oral tablet (2 sources) take 1 tablet by mouth twice daily at mealtime Niacinamide 500 mg tablet Take 500 mg by mouth two times a day with meals. Active Comment on above: Take 500 mg by mouth two times a day with meals. Kmhtn-0d-Oyj-Epa-Fis h Oil-D3 (4 sources) Start: 6 Krfkk-8d-Uai-Epa-Fis h Oil-D3 Active 2 EACH PO TWICE A DAY April 18, 2015 1:00am Start: 04-18-2015 Pakoh-4t-Wbs-E pa-Fish Oil-D3 Active 2 EACH PO TWICE A DAY April 18, 2015 12:00am polyethylene glycol 3350 18206 mg powder for oral solution (1 source) Osmotic Laxative Start: 05-08-2015 take 17 g by mouth once daily Polyethylene Glycol 3350 Active 17 GM PO DAILY May 08, 2015 12:00am Saw Dolton (4 sources) Start: 04-18-2015 take 900 mg by mouth once daily Saw Dolton Active 900 MG PO DAILY April 18, 2015 1:00am Start: 04-18-2015 take 900 mg by mouth once kip y Saw Dolton Active 900 MG PO DAILY April 18, 2015 12:00am saw palmetto oral capsule (9 sources) Start: 09-26-2019 take 1 capsule by mouth twice daily saw palmetto oral capsule Dose = 1 cap(s), Oral, BID, 450 mg, 0 Refill(s) Start Date: 09/26/19 Status: Ordered Repeat number: 1 Start: 09-26-2019 take 1 capsule by mo ut twice daily saw palmetto oral capsule Dose = 1 cap(s), Oral, BID, 450 mg, 0 Refill(s) Start Date: 09/26/19 Status: Ordered Saw-Vit E-Sod Aqk-Jva-Omnf-P yg (4 sources) Start: 04-18-2015 Saw-Vit E-Sod Tpp-Jwz-Szmi-Pyg Active 1 EACH PO TWICE A DAY April 18, 2015 1:00am Start: 04-18-2015 Saw-Vit E-Sod Ypf-Sge-Kjml-Pyg Active 1 EACH PO TWICE A DAY April 18, 2015 12:00am selenium 200 mcg oral tablet (8 sources) Start: 11-12-2020 selenium 200 m cg oral tablet Dose : 200 mcg = 1 tab(s), Oral, Daily, # 30 tab(s), 0 Refill(s) Start Date: 11/12/20 Status: Ordered thyroid (skilled nursing) 120 mg oral tablet (1 source) Start: 04-18-2015 take 120 mg by mouth once daily Thyroid (Pork) Active 120 MG PO DAILY April 18, 2015 12:00am traMADol hydrochloride 50 mg oral tablet (1 source) Opioid Agonist Start: 05-08-2015 take 50-100 mg by mouth every six hours as needed Tramadol Active 50 - 100 MG PO EVERY 6 HOURS NEEDED 60 May 08, 2015 12:00am turmeric extract 500 mg oral capsule (3 sources) Start: 04-21-2022 take 500 mg by mouth twice daily Turmeric Active 500 MG PO TWICE A DAY April 21, 2022 1:00am Start: 04-21-2022 take 500 mg by mouth twice nava ly Turmeric Active 500 MG PO TWICE A DAY April 21, 2022 12:00am ubidecarenone 100 mg oral ca psule (7 sources) Start: 04-18-2015 Coenzyme Q10 A ctive 200 MG PO TWICE A DAY April 18, 2015 1:00am Start: 04-18-2015 Coenzyme Q10 A ctive 100 MG PO TWICE A DAY April 18, 2015 12:00am Comment on above: Take 200 mg by mouth twice daily. Vitamin D3 5000 intl units (125 mcg) oral capsule (9 sources) Start: 04-15-2020 Vitamin D3 5000 intl units (125 mcg) oral capsule Dose : 5,000 International_Unit = 1 cap(s), Oral, BID, # 100 cap(s), 0 Refill(s) Start Date: 04/15/20 Status: Ordered Quantity: 100.0 Unit: cap(s) Repeat number: 1 Start: 04-15-2020 Vitamin D3 500 0 intl units (125 mcg) oral capsule Dose : 5,000 International_Unit = 1 cap(s), Oral, BID, # 100 cap(s), 0 Refill(s) Start Date: 04/15/20 Status: Ordered vitamin e 90 mg oral capsule (7 sources) Start: 09-26-2019 Vitamin E, dl, acetate, (VITAMIN E) 200 unit capsule twice daily. 09/26/2019 Active Start: 04-18-2015 take 200 [IU] by mouth once da edwige Vitamin E Active 200 UNIT PO DAILY April 18, 2015 1:00am Comment on above: twice daily. vitamin E 200 intl units oral capsule (1 source) Start: 09-26-2019 vitamin E 200 intl units oral capsule Dose : 200 International_Unit = 1 cap(s), Oral, BID, 0 Refill(s) Start Date: 09/26/19 Status: Ordered Completed/Discontinued Medications Medication Drug Class(es) Dates Sig (Normalized) Sig (Original) acetaminophen 325 mg / HYDROcodone bitartrate 5 mg oral tablet (5 sources) Opioid Agonist Start: 04-30-2015 End: 05-08-2015 take 1 tablet by mouth every four hours as needed Hydrocodone-Acetam inophen Discontinued 1 - 2 TABLET PO EVERY 4 HOURS NEEDED April 30, 2015 1:00am May 08, 2015 11:30pm amoxicillin 500 mg oral capsule (8 sources) Penicillin-class Antibacterial Start: 02-01-2021 End: 02-11-2021 take 500 mg by mouth three times daily Amoxicillin Discontinued 500 MG PO THREE TIMES A DAY 31 01February 01, 2021 12:00am February 11, 2021 1:01am Start: 09-01-2018 End: 09-11-2018 take 500 mg by mouth twice daily Amoxicillin Discontinued 500 MG PO TWICE A DAY 21 01September 01, 2018 12:00am September 11, 2018 12:08am amoxicillin 875 mg / clavulanate 125 mg oral tablet (4 sources) Penicillin-class Antibacterial Start: 06-16-2019 End: 09-18-2019 take 1 tablet by mouth twice daily Amoxicillin-Pot Clavulanate Discontinued 1 TABLET PO TWICE A DAY June 16, 2019 12:00am September 18, 2019 8:38am aspirin 81 mg delayed release oral tablet (3 sources) Platelet Aggregation Inhibitor, Nonsteroidal Anti-inflammatory Drug Start: 05-07-2022 End: 01-25-2023 take 81 mg by mouth twice daily Aspirin Discontinued 81 MG PO TWICE A DAY 56 May 07, 2022 1:00am January 25, 2023 12:03pm Start: 04-30-2015 take 325 mg by mouth twice daily at mealtime Aspirin Active 325 MG PO TWICE DAILY WITH MEALS April 30, 2015 12:00am atorvastatin 40 mg oral tablet (10 sources) HMG-CoA Reductase Inhibitor Start: 03-03-2020 End: 02-15-2024 take 1 tablet by mouth once daily atorvastatin (LIPITOR) 40 mg tablet Take 40 mg by mouth once daily. 03/03/2020 02/15/2024 Discontinued (Course of therapy completed) Comment on above: Take 40 mg by mouth once daily. cannabidiol 100 mg/ml oral solution (6 sources) Start: 08-27-2020 cannabidiol 10 0 mg/mL oral liquid mg = mL, Oral, BID, 66mg BID, 0 Refill(s), 107.6 Start Date: 08/27/20 Status: Ordered cannabidiol 100 mg/mL oral liquid (1 source) Start: 08-27-2020 cannabidiol 10 0 mg/mL oral liquid mg = mL, Oral, BID, 0 Refill(s), 107.6 Start Date: 08/27/20 Status: Ordered docusate sodium 50 mg / sennosides, skilled nursing 8.6 mg oral tablet (3 sources) Start: 05-07-2022 End: 01-25-2023 take 2 tablets by mouth twice daily Sennosides-Docusate Sodium (Stool Softener-Stimulant Laxat) 8.6-50 mg Tablet Discontinued 2 TABLET PO TWICE A DAY 28 7 May 07, 2022 1:00am January 25, 2023 12:05pm Start: 05-08-2015 take 2 tablets by mo [facility] twice daily Sennosides-Docusate Sodium Active 2 TABLET PO TWICE A DAY 120 May 08, 2015 12:00am lycopene (16 sources) Start: 09-26-2019 Lycopene 10 mg Lycopene 10 mg, Daily, 0 Refill(s), 111.1 Start Date: 09/26/19 Status: Ordered Repeat number: 1 Start: 09-26-2019 Lycopene 10 mg Lycopene 10 mg, Daily, 0 Refill(s), 111.1 Start Date: 09/26/19 Status: Ordered Start: 04-18-2015 take 20 mg by mouth once daily Lycopene Active 20 MG PO DAILY April 18, 2015 1:00am take 1 capsule by [facility] once daily lycopene 10 mg cap Take by mouth once daily. Active Comment on above: Take by mouth once d aily. oxyCODONE hydrochloride 5 mg oral tablet (2 sources) Opioid Agonist Start: 3 End: 3 take 5-10 mg by mouth every four hours as needed Oxycodone Discontinued 5 - 10 MG PO EVERY 4 HOURS NEEDED 42 May 07, 2022 January 25, 2023 12:04pm pantoprazole 40 mg delayed release oral tablet (3 sources) Proton Pump Inhibitor Start: 3 End: 3 take 40 mg by mouth once daily Pantoprazole Discontinued 40 MG PO DAILY April 21, 2022 1:00am January 25, 2023 12:04pm Pt has Idoral 12.5 mg BID (9 sources) Start: 0 Pt has Idoral 12.5 mg BID Pt has Idoral 12.5 mg BID, Once daily, 0 Refill(s), 111.1 Start Date: 09/26/19 Status: Ordered Repeat number: 1 Start: 09-26-2019 Pt has Idoral 12.5 mg BID Pt has Idoral 12.5 mg BID, Once daily, 0 Refill(s), 111.1 Start Date: 09/26/19 Status: Ordered sulfamethoxazole 800 mg / trimethoprim 160 mg oral tablet (4 sources) Dihydrofolate Reductase Inhibitor Antibacterial, Sulfonamide Antimicrobial Start: 09-18-2019 End: 09-25-2019 take 1 tablet by mouth every twelve hours Sulfamethoxazole-Trimethoprim (Bactrim Ds) 800-160 mg tablet Discontinued 1 TABLET PO Q12H 14 7 September 18, 2019 12:00am September 25, 2019 12:02am Problems Active Problems Problem Classification Problem Date Documented Date Episodic/Chronic Acquired foot deformities (1 source) Foot-drop; Translations: [Foot drop, left foot] Episodic Acute and chronic tonsillitis (2 sources) Hypertrophy of tonsils; Translations: [Hypertrophy of tonsils] Onset: Chronic Acute bronchitis (5 sources) Acute bronchitis; Translations: [Acute bronchitis, unspecified] 09-01-2018 Episodic Administrative/social admission (11 sources) Administrative reason for encounter; Translations: [Encounter for examination for driving license] Episodic Blindness and vision defects (2 sources) Blindness, one eye, unspecified eye; Translations: [Blindness, one eye, unspecified eye] Onset: Chronic Cancer of prostate (12 sources) History of malignant neoplasm of prostate; Translations: [Personal history of malignant neoplasm of prostate] Onset: 3 02-27-2020 Episodic Coronary atherosclerosis and other heart disease (19 sources) Atherosclerotic heart disease of [place] coronary artery without angina pectoris; Translations: [Coronary arteriosclerosis] Onset: 7 02-27-2020 Chronic Diabetes mellitus without complication (2 sources) Type 2 diabetes mellitus 03-18-2023 Chronic Diabetes mellitus without complication (10 sources) Prediabetes; Translations: [Prediabetes] Onset: 3 02-27-2020 Episodic Disorders of lipid metabolism (20 sources) Hyperlipidemia; Translations: [Mixed hyperlipidemia] Onset: 1 03-03-2020 Chronic Esophageal disorders (10 sources) Gastroesophageal reflux disease without esophagitis 02-27-2020 Chronic Essential hypertension (20 sources) Essential (primary) hypertension; Translations: [Essential hypertension] Onset: 7 02-27-2020 Chronic Genitourinary symptoms and ill-defined conditions (10 sources) Incomplete emptying of bladder 07-02-2020 Episodic Mycoses (10 sources) Tinea cruris 03-26-2020 Episodic Nonspecific chest pain (3 sources) Atypical chest pain; Translations: [Other chest pain] 01-29-2021 Episodic Nutritional deficiencies (4 sources) Vitamin D deficiency; Translations: [Vitamin D deficiency, unspecified] 04-30-2015 Chronic Open wounds of extremities (4 sources) Disorder of foot; Translations: [Unspecified open wound, left foot, initial encounter] 09-18-2019 Episodic Osteoarthritis (20 sources) Unspecified osteoarthritis, unspecified site; Translations: [Arthritis] Onset: 7 09-26-2019 Chronic Other [employer] infection and poliomyelitis (1 source) Post poliomyelitis syndrome; 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 Other connective tissue disease (2 sources) Presence of unspecified orthopedic joint implant; Translations: [Presence of unspecified orthopedic joint implant] Onset: 7 Chronic Other connective tissue disease (4 sources) History of total knee arthroplasty; Translations: [Presence of artificial knee joint, bilateral] 04-30-2015 Chronic Other connective tissue disease (10 sources) Dupuytren contracture of left palm 09-26-2019 Episodic Other connective tissue disease (9 sources) Muscle weakness; Translations: [Muscle weakness (generalized)] 08-12-2021 Episodic Other connective tissue disease (3 sources) Tendinitis of shoulder region; Translations: [Other enthesopathies, not elsewhere classified] 10-10-2018 Episodic Other connective tissue disease (1 source) Tendonitis of left shoulder; Translations: [Other enthesopathies, not elsewhere classified] 10-10-2018 Episodic Other gastrointestinal disorders (4 sources) Dysphagia 03-03-2022 Episodic Other infections; including parasitic (10 sources) H/O: viral illness 04-16-2020 Episodic Other lower respiratory disease (1 source) Cough 04-09-2024 Episodic Other nervous system disorders (1 source) Abnormal gait; Translations: [Other abnormalities of gait and mobility] Episodic Other nervous system disorders (2 sources) Postoperative pain ; Translations: [Other acute postprocedural pain] 05-07-2022 Episodic Other nervous system disorders (1 source) Other acute postprocedural pain; Translations: [Other acute postoperative pain] 05-07-2022 Episodic Other non-traumatic joint disorders (4 sources) Shoulder pain 02-18-2022 Episodic Other upper respiratory disease (14 sources) Allergic rhinitis; Translations: [Allergic rhinitis, unspecified] 08-27-2020 Chronic Other upper respiratory infections (2 sources) Recurrent sinusitis 12-20-2023 Chronic Residual codes; unclassified (4 sources) Sleep apnea; Translations: [Sleep apnea, unspecified] 04-30-2015 Chronic Residual codes; unclassified (2 sources) Obstructive sleep apnea syndrome; Translations: [Obstructive sleep apnea (adult) (pediatric)] 02-14-2023 Chronic Residual codes; unclassified (1 source) Obstructive sleep apnea (adult) (pediatric); Translations: [NELLY (obstructive sleep apnea)] Onset: 4 Chronic Residual codes; unclassified (9 sources) Chronic back pain 08-06-2021 Episodic Residual codes; unclassified (8 sources) Chronic pain 08-12-2021 Episodic Residual codes; unclassified (6 sources) Past history of procedure; Translations: [Personal history of other medical treatment] Onset: 9 Episodic Residual codes; unclassified (6 sources) Non-smoker; Translations: [Other specified health status] Onset: 1 Episodic Residual codes; unclassified (3 sources) Edema of lower extremity; Translations: [Localized edema] 01-29-2021 Episodic Spondylosis; intervertebral disc disorders; other back problems (6 sources) Cervical arthritis; Translations: [Degeneration of lumbar intervertebral disc] 02-18-2022 Chronic Spondylosis; intervertebral disc disorders; other back problems (4 sources) Spinal stenosis of lumbar region; Translations: [Spinal stenosis, lumbar region with neurogenic claudication] Onset: 5 02-23-2023 Episodic Thyroid disorders (16 sources) Hypothyroidism; Translations: [Hypothyroidism, unspecified] Onset: 3 03-03-2020 Chronic Comment on above: Ultrasound Thyroid: 12/21/2019 FINDINGS: Size right thyroid lobe: 7.6 cm Size left thyroid lobe: 8 cm Thyroid parenchyma is diffusely heterogeneous. A discrete or dominant mass lesion is not identified on these images, and there are no microcalcifications seen. No additional contributory finding. IMPRESSION: Prominently enlarged and heterogeneous thyroid most compatible with prominent diffuse goiter. Graves' disease would be an additional consideration. No focal lesion requiring follow-up seen. 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 Unclassified (1 source) Patient encounter status 03-10-2022 Unclassified (1 source) Low back pain, unspecified; Translations: [Low back pain, unspecified] Onset: 5 Past or Other Problems Problem Classification Problem Date Documented Da te Episodic/Chronic Coronary atherosclerosis and other heart disease (4 sources) Presence of coronary angioplasty implant and graft; Translations: [Presence of coronary angioplasty implant and graft] Onset: 03-17-2017 Episodic Other and unspecified benign neoplasm (2 sources) Benign neoplasm of other parts of mouth; Translations: [Benign neoplasm of other parts of mouth] Onset: 03-17-2017 Episodic Other [employer] infection and poliomyelitis (12 sources) Personal history of poliomyelitis; Translations: [Acute poliomyelitis] Onset: 04-04-1951 09-26-2019 Episodic Other non-epithelial cancer of skin (2 sources) Personal history of other malignant neoplasm of skin; Translations: [Personal history of other malignant neoplasm of skin] Onset: 03-17-2017 Episodic Residual codes; unclassified (2 sources) Personal history of other medical treatment; Translations: [History of stress test] Onset: 01-29-2021 Episodic Residual codes; unclassified (2 sources) Other specified health status; Translations: [Non-smoker] Onset: 01-29-2021 Episodic Screening or history of mental health and substance abuse (2 sources) Personal history of nicotine dependence; Translations: [Personal history of nicotine dependence] Onset: 03-17-2017 Episodic Thyroid disorders (2 sources) Disorder of thyroid, unspecified; Translations: [Disorder of thyroid, unspecified] Onset: 03-17-2017 Episodic Results Test Name Value Interpretation Reference Range Facility HIP, UNI W/ Pelvis 2-3 Views on 08-20-2024 HIP, UNI W/ Pelvis 2-3 Views [facility] Imaging Services [address] [place] [address] HIP, UNI W/ Pelvis 2-3 Views MR#: [id number] Acct: [id number] Name: KIARA HAYWOOD Rep #: [id number] : 1940 M 84 From: Elieser Bautista MD PCP: Dr. Elieser Brothers DO Status: REG CLI Study: HIP, UNI W/ Pelvis 2-3 Views Date of Exam: Exam# [id number] Ordering Dr: Semaj Muir MD PROCEDURE: HIP, UNI W/ PELVIS 2-3 VIEWS 08/20/2024 REASON FOR EXAM: HIP OSTEOARTHRITIS TECHNIQUE: AP pelvis and two views right hip, 3 total images COMPARISON: None available FINDINGS: Lower lumbar spondylosis/discogenic change. Symmetric appearing SI joints and pubic symphysis appear within limits. Numerous prostate radiation seeds. Moderate appearing right hip osteoarthrosis with joint space narrowing and spurring. No fracture or dislocation. Mild to moderate appearing left hip osteoarthrosis. No osseous lesion identified. RAD/HIP, UNI W/ Pelvis 2-3 Views IMPRESSION: Lower lumbar spondylosis/discogenic change. Numerous prostate radiation seeds. Moderate appearing right hip osteoarthrosis with joint space narrowing and spurring. No fracture or dislocation. Mild to moderate appearing left hip osteoarthrosis. No osseous lesion identified. Reading Location: [facility] CC: Dr. Semaj Muir MD; Dr. Elieser Brothers DO Ceramic Coater: Signed Normal [facility] L/S Spine Min 4 Viewson L/S Spine Min 4 Views [facility] Imaging Services [address] [place], [place] [id number] L/S Spine Min 4 Views MR#: [id number] Acct: [id number] Name: KIARA HAYWOOD Rep #: [id number] : 1940 M 84 From: Elieser Bautista MD PCP: Dr. Elieser Brothers DO Status: DEP AMB Study: L/S Spine Min 4 Views Date of Exam: 08/09/24 Exam# [id number] Ordering Dr: Kirsten Ivan PROCEDURE: L/S SPINE MIN 4 VIEWS 08/09/2024 REASON FOR EXAM: PAIN TECHNIQUE: Four views, AP, lateral and flexion-extension FINDINGS: 5 [id number] lumbar vertebral body types identified. Mild leftward curvature. No fracture or malalignment. L1-2 mild disc space narrowing with large anterior corner osteophyte formation. L2-3 osseous fusion across the disc space L3-4 moderate disc space narrowing and degenerative endplate changes and appearance of foraminal narrowing L4-5 [id number] disc space narrowing with degenerative endplate changes and appearance of foraminal stenosis L5-S1 spondylosis/discogenic change Aortoiliac atherosclerotic calcification No evidence of instability Multilevel facet hypertrophic degenerative changes. Multilevel flowing osteophyte formation RAD/L/S Spine Min 4 Views IMPRESSION: Multilevel spondylosis/discogenic change as above. Reading Location: [id number] CC: ISAIAH Ontiveros; Dr. Elieser Brothers DO Ceramic Coater: Signed Normal [facility] Orthopedic Visit Reporton Orthopedic Visit Report [facility] [address] [place] [address] OFFICE VISIT Date of Service: 08/09/24 MR#: [id number] Acct: [id number] Name: KIARA HAYWOOD Rep #: [id number] : 1940 Provider: ISAIAH Ontiveros Age/Sex: 84/M Location: [facility] Status: Signed Intake Vital Signs 01/25/23 12:05 08/09/24 10:22 Height 5 ft 11 in 5 ft 11 in Weight: 231 lb 8 oz BMI 32.3 Intake Visit Reasons: LUMBAR SPINE Allergies fexofenadine Adverse Reaction (Verified 07/09/23 09:06) Other Medications ???Medication ???Instructions ???Recorded ???Confirmed ???Type cholecalciferol (vitamin D3) 25 4,000 unit PO BID 04/18/15 5 History mcg (1,000 unit) tablet coenzyme Q10 100 mg capsule 200 mg PO BID 04/18/15 08/09/24 Hi story glucosamine 467 mg-chondroitin msm 2 ea PO BID 04/18/15 08/09/24 Hi story no.6 438 mg-manganes 0.7 mg capsule lycopene 10 mg capsule 20 mg PO DAILY 04/18/15 08/09/24 H istory niacin 250 mg tablet,extended 250 mg PO DAILY 04/18/15 08/09/24 History release azelastine 137 mcg (0.1 %) nasal 1 spray intranasal PRN PRN 3 08/09/24 History spray ALLERGIES levothyroxine 100 mcg tablet 100 mcg PO DAILY 04/21/22 08/09/24 History Have you fallen in the past year?: No PFSH Medical History Hx of basal cell carcinoma Wears hearing aid Wears glasses Restless legs Back pain Injury of head and neck Gastric reflux Non-smoker Shortness of breath on exertion Chronic cough History of edema History of echocardiogram History of stress test Cardiology follow-up encounter History of irregular heartbeat Polio History of deviated nasal septum Hx of brachytherapy Thyroid disease Cancer Arthritis Surgical History History of cardiac catheterization Hx of shoulder surgery Hx of cataract extraction History of coronary artery stent placement History of back surgery History of bilateral knee replacement Social History Smoking Status: Never smoker alcohol intake: never HPI LUMBAR SPINE Details: This documentation accurately reflects the service provided and the decisions made by me, ISAIAH Ontiveros 08/09/24 1019. Part of today???s visit was documented by Lala ERVIN, acting as scribe. KIARA HAYWOOD is a 84 year old M here today for low back pain. He states that he had surgery in 2001 at L4-5. He was having left sided symptoms and it got better. Patient states that they cleaned it out. At the time his pain was affecting his left leg. He saw Dr. Walker last year who talked to him about a pain simulator or a fusion and he didn't want to proceed with either of them. He states that he pain he is having now started in May. The pain started in the left hip but is now in the right hip. He currently has a right sided low back pain and a posterior right sided back pain that extends into his right groin and down the lateral side of his thigh. The patient has been using a cane over the last 2 weeks. This pain worsens with walking and says that he can only walk for about 20 to 30 feet before he needs to sit down. The patient relies on a shopping cart to lean on when grocery shopping to relieve his pain. He does have some weakness and instability in the right leg so he wears a knee brace. He does also wear a back brace to help support him. Denies numbness, tingling or other associated symptoms. He does shooting pain down the leg into his foot at times. He did bring a disc today from [facility] with imaging on it. Patient does ambulate with a cane due to the right leg. He denies PT but does do stretches a few times a day. He denies having injections in the lumbar spine. Denies any abdominal surgeries. Prediabetes, last a1c was around 6.2, hx of a stent placement, no blood thinners. Ortho Exam General General: Yes no acute distress Neurologic: Yes alert and Yes oriented x3 Spine SPINE TESTING CERVICAL THORACIC LUMBAR Musculoskeletal Strength 0=absent - 5=normal Details: Neurological exam of the lower extremities shows 5x5 power. Increased pain with right hip flexion. Normal sensations across all dermatomes. No hyperreflexia. There is some mild midline tenderness and no paraspinal tenderness. Coding Level of Care Code Off vis,new,level 4 Diagnoses Lumbar stenosis with neurogenic claudication M48.062 Assessment and Plan Assessment and Plan (1) Lumbar stenosis with neurogenic claudication: Status: Acute Orders: Orders L/S Spine Min 4 Views Today M54.50 - Low back pain, unspecified Lumbar Myelogram Today M48.062 - Spinal stenosis, lumbar region with neurogenic claudic (more content not included)... Normal [facility] XR CHEST 2 VIEWSon 5 XR CHEST 2 VIEWS ORIGINAL HISTORY: Cough COMPARISON: No FINDINGS: The lungs and pleural spaces are clear. The cardiac silhouette is within normal limits. The pulmonary vasculature is within normal limits. IMPRESSION: Clear lungs. Interpreted by: Priya Bonilla MD Preliminary Report By: Priya Bonilla MD Electronically signed By Priya Bonilla MD Dictated Date: 04/10/2024 10:26:24 AM Prelim Date: 04/10/2024 10:26:50 AM Sign Date: 04/10/2024 10:26:50 AM Ordering Provider: ELIESER BROTHERS [facility] PSAon 04-05-2024 Prostate Specific Antigen <0.05 Normal 0.00-4.00 [facility] Comment on above: Performed By: #### P SA #### [address] [address] .GFRon 04-03-2024 GFR Non- 96 ml/min/1.73sqm Normal [facility] Comment on above: Result Comment: GFR Population mean for , Non- Americans Ages 20-29 = 116 mL/min/1.73 sq.m. Ages 30-39 = 107 mL/min/1.73 sq.m. Ages 40-49 = 99 mL/min/1.73 sq.m. Ages 50-59 = 93 mL/min/1.73 sq.m. Ages 60-69 = 85 mL/min/1.73 sq.m. Ages 70+ = 75 mL/min/1.73 sq.m. Chronic Kidney Disease: Less than 60 mL/min/1.73 square meters End Stage Renal Disease: Less than 15 mL/min/1.73 square meters Performed By: #### T SH, GFR, LIPID, CMP #### [address] [address] GFR 117 ml/min/1.73sqm Normal [facility] Comment on above: Result Comment: GFR Population mean for , Non- Americans Ages 20-29 = 116 mL/min/1.73 sq.m. Ages 30-39 = 107 mL/min/1.73 sq.m. Ages 40-49 = 99 mL/min/1.73 sq.m. Ages 50-59 = 93 mL/min/1.73 sq.m. Ages 60-69 = 85 mL/min/1.73 sq.m. Ages 70+ = 75 mL/min/1.73 sq.m. Chronic Kidney Disease: Less than 60 mL/min/1.73 square meters End Stage Renal Disease: Less than 15 mL/min/1.73 square meters Performed By: #### T SH, GFR, LIPID, CMP #### [address] [address] CMPon 04-03-2024 Albumin Level 4.1 G/dL Normal 3.4-4.8 [facility] Comment on above: Performed By: #### T SH, GFR, LIPID, CMP #### [address] [address] Albumin/Globulin [Mass ratio] 1.4 {ratio} Normal 1.1-2.5 [facility] Comment on above: Performed By: #### T SH, GFR, LIPID, CMP #### [address] [address] ALP [Catalytic activity/Vol] 84 U/L Normal 40-135 [facility] Comment on above: Performed By: #### T SH, GFR, LIPID, CMP #### [place] [id number] ALT [Catalytic activity/Vol] 22 U/L Normal 16-63 [facility] Comment on above: Performed By: #### T SH, GFR, LIPID, CMP #### [place] [id number] AST [Catalytic activity/Vol] 16 U/L Normal 10-40 [facility] Comment on above: Performed By: #### T SH, GFR, LIPID, CMP #### [address] [address] Bili Total 1.1 mg/dL High 0.2-1.0 [facility] Comment on above: Result Comment: Use of this assay is not recommended for patients undergoing treatment with eltrombopag due to the potential for falsely elevated results. Performed By: #### T SH, GFR, LIPID, CMP #### [address] [address] BUN/Creatinine Ratio 25 ratio Normal 7-27 [facility] Comment on above: Performed By: #### T SH, GFR, LIPID, CMP #### [address] [address] Calcium [Mass/Vol] 9.6 mg/dL Normal 8.4-10.2 [facility] Comment on above: Performed By: #### T SH, GFR, LIPID, CMP #### [address] [address] Chloride [Moles/Vol] 103 mmol/L Normal 98-107 [facility] Comment on above: Performed By: #### T SH, GFR, LIPID, CMP #### [address] [address] CO2 [Moles/Vol] 32 mmol/L High 23-31 [facility] Comment on above: Performed By: #### T SH, GFR, LIPID, CMP #### [address] [address] Creatinine [Mass/Vol] 0.77 mg/dL Normal 0.70-1.30 [facility] Comment on above: Result Comment: Test ing performed on [employer] Dimension EXL analyzer using a modified kinetic Ketan technique. Performed By: #### T SH, GFR, LIPID, CMP #### [address] [address] Electrolyte Balance 7.0 mEq/L Normal 4.0-15.0 [facility] Comment on above: Performed By: #### T SH, GFR, LIPID, CMP #### [address] [address] Globulin 3.0 G/dL Normal [facility] Comment on above: Performed By: #### T SH, GFR, LIPID, CMP #### [address] [address] Glucose [Mass/Vol] 100 mg/dL Normal 83-110 [facility] Comment on above: Performed By: #### T SH, GFR, LIPID, CMP #### [address] [address] Potassium [Moles/Vol] 4.4 mmol/L Normal 3.5-5.1 [facility] Comment on above: Performed By: #### T SH, GFR, LIPID, CMP #### [address] [address] Sodium [Moles/Vol] 142 mmol/L Normal 136-145 [facility] Comment on above: Performed By: #### T SH, GFR, LIPID, CMP #### [place] [address] [place], [place] [address] Total Protein 7.1 G/dL Normal 6.4-8.2 [facility] Comment on above: Performed By: #### T SH, GFR, LIPID, CMP #### [facility] [address] [place], [place] [address] Urea nitrogen [Mass/Vol] 19 mg/dL High 7-18 [facility] Comment on above: Performed By: #### T SH, GFR, LIPID, CMP #### [place] [address] [place], [place] [address] LABORATORYOrdered By: SYSTEM SYSTEM on 04-03-2024 Albumin BCP dye [Mass/Vol] 4.1 G/dL Normal 3.4 - 4.8 G/dL AO ADM SS Albumin/Globulin [Mass ratio] 1.4 {ratio} Normal 1.1 - 2.5 ratio AO ADM SS ALP [Catalytic activity/Vol] 84 U/L Normal 40 - 135 U/L AO ADM SS ALT With P-5'-P [Catalytic activity/Vol] 22 U/L Normal 16 - 63 U/L AO ADM SS AST With P-5'-P [Catalytic activity/Vol] 16 U/L Normal 10 - 40 U/L AO ADM SS Bilirubin [Mass/Vol] 1.1 mg/dL High 0.2 - 1 .0 mg/dL AO ADM SS Comment on above: Interpretive Data: U se of this assay is not recommended for patients undergoing treatment with eltrombopag due to the potential for falsely elevated results. Calcium [Mass/Vol] 9.6 mg/dL Normal 8.4 - 10. 2 mg/dL AO ADM SS Chloride [Moles/Vol] 103 mmol/L Normal 98 - 10 7 mmol/L AO ADM SS CO2 [Moles/Vol] 32 mmol/L High 23 - 31 mmol/L AO ADM SS Creatinine [Mass/Vol] 0.77 mg/dL Normal 0.70 - 1.30 mg/dL AO ADM SS Comment on above: Interpretive Data: T esting performed on [employer] Dimension EXL analyzer using a modified kinetic Ketan technique. Electrolyte Balance 7.0 mEq/L Normal 4.0 - 15 .0 mEq/L AO ADM SS GFR/1.73 sq M.predicted among blacks MDRD (S/P/Bld) [Vol rate/Area] 117 ml/min/1.73sqm Invalid Interpretation Code AO Chemistry S Comment on above: Interpretive Data: GFR Population mean for , Non- Americans Ages 20-29 = 116 mL/min/1.73 sq.m. Ages 30-39 = 107 mL/min/1.73 sq.m. Ages 40-49 = 99 mL/min/1.73 sq.m. Ages 50-59 = 93 mL/min/1.73 sq.m. Ages 60-69 = 85 mL/min/1.73 sq.m. Ages 70+ = 75 mL/min/1.73 sq.m. Chronic Kidney Disease: Less than 60 mL/min/1.73 square meters End Stage Renal Disease: Less than 15 mL/min/1.73 square meters GFR/1.73 sq M.predicted among non-blacks MDRD (S/P/Bld) [Vol rate/Area] 96 ml/min/1.73sqm Invalid Interpretation Code AO Chemistry S Comment on above: Interpretive Data: GFR Population mean for , Non- Americans Ages 20-29 = 116 mL/min/1.73 sq.m. Ages 30-39 = 107 mL/min/1.73 sq.m. Ages 40-49 = 99 mL/min/1.73 sq.m. Ages 50-59 = 93 mL/min/1.73 sq.m. Ages 60-69 = 85 mL/min/1.73 sq.m. Ages 70+ = 75 mL/min/1.73 sq.m. Chronic Kidney Disease: Less than 60 mL/min/1.73 square meters End Stage Renal Disease: Less than 15 mL/min/1.73 square meters Globulin 3.0 G/dL Invalid Interpretation Code AO ADM SS Glucose [Mass/Vol] 100 mg/dL Normal 83 - 110 mg/dL AO ADM SS Potassium [Moles/Vol] 4.4 mmol/L Normal 3.5 - 5.1 mmol/L AO ADM SS Protein [Mass/Vol] 7.1 G/dL Normal 6.4 - 8.2 G/dL AO ADM SS Sodium [Moles/Vol] 142 mmol/L Normal 136 - 145 mmol/L AO ADM SS TSH Qn 2.47 m[IU]/L Normal 0.36 - 3.74 mcIU/mL AO ADM SS Urea nitrogen [Mass/Vol] 19 mg/dL High 7 - 18 mg/dL AO ADM SS Urea nitrogen/Creatinine [Mass ratio] 25 ratio Normal 7 - 27 ratio AO ADM SS LABORATORYOrdered By: Geronimo Harper on 04-03-2024 Cholesterol [Mass/Vol] 213 mg/dL High 0 - 200 mg/dL AO ADM SS Comment on above: Interpretive Data: C holesterol Reference Interval: Less than 200 Desirable 200-239 Borderline high risk 240 and above High risk Cholesterol in HDL [Mass/Vol] 58 mg/dL Normal 40 - 60 mg/dL AO ADM SS Cholesterol in LDL [Mass/Vol] 129 mg/dL Normal 0 - 130 mg/dL AO ADM SS Triglyceride [Mass/Vol] 128 mg/dL Normal 0 - 150 mg/dL AO ADM SS Comment on above: Interpretive Data: T riglyceride Reference Interval: Less than 150 Normal 150-199 Borderline high risk 200-499 High risk 500 or higher Very high risk LIPIDon 04-03-2024 Cholesterol [Mass/Vol] 213 mg/dL High 0-200 [facility] Comment on above: Result Comment: Chol esterol Reference Interval: Less than 200 Desirable 200-239 Borderline high risk 240 and above High risk Performed By: #### T SH, GFR, LIPID, CMP #### [address] [address] Cholesterol in HDL [Mass/Vol] 58 mg/dL Normal 40-60 [facility] Comment on above: Performed By: #### T SH, GFR, LIPID, CMP #### [address] [address] Cholesterol in LDL [Mass/Vol] 129 mg/dL Normal 0-130 [facility] Comment on above: Performed By: #### T SH, GFR, LIPID, CMP #### [address] [address] Triglyceride [Mass/Vol] 128 mg/dL Normal 0-150 [facility] Comment on above: Result Comment: Trig lyceride Reference Interval: Less than 150 Normal 150-199 Borderline high risk 200-499 High risk 500 or higher Very high risk Performed By: #### T SH, GFR, LIPID, CMP #### [place] [address] [place], [place] [address] TSHon 04-03-2024 TSH Qn 2.47 m[IU]/L Normal 0.36-3.74 [facility] Comment on above: Performed By: #### T SH, GFR, LIPID, CMP #### [place] [address] [place], [place] [address] CNOVon 02-15-2024 CNOV Office Visit ([facility] ) -------- KIARA HAYWOOD ([id number]) 1940 M Date Time Provider Department 02/15/24 1:15 PM LANRE PADILLA During your visit today, we recorded the following information about you: Pulse Blood pressure Weight Height 87/minute 132/84 102.5 kg 1.803 m Lanre Padlila DO 02/16/2024 4:57 AM Signed Referring Provider: No ref. provider found Date: February 15, 2024 Chief Complaint: Established Patient Follow-Up (1 year follow up, hx of HTN. ) HISTORY OF PRESENT ILLNESS: Kiara Haywood is a 83 year old male who presents for Established Patient Follow-Up (1 year follow up, hx of HTN. ). Patient known to have a stent placed 2013 to LAD. In 2019 in 2020 had a stress test. Ejection fraction 50%. No evidence of ischemia is noted. ALLERGIES No Known Allergies PAST MEDICAL HISTORY: PAST MEDICAL HISTORY Diagnosis Date Abnormal stress test Atypical chest pain CAD in [place] artery Edema of lower extremity History of coronary artery stent placement 04/26/2012 proximal LAD promus element stent History of stress test 05/31/2018 no evidence of ischemia or infarction EF 54% History of stress test 10/03/2013 small inferoapical scar no reversible ischemia EF 59% History of stress test 02/12/2021 normal exercise stress perfusion imaging normal LV systolic function EF 50% Hypertension Leg edema, right Mixed hyperlipidemia NELLY (obstructive sleep apnea) Prostate cancer (HCC) Right knee pain Snores PAST SURGICAL HISTORY Procedure Laterality Date ARTHRP KNE CONDYLEANDPLATU MEDIALANDLAT COMPARTMENTS Bilateral 04/2015 BACK SURGERY HX 2002 L5-6 microdecompression 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 NOSE SURGERY HX 08/2016 sinus cleaning and deviated septum repair PAST SURGICAL HISTORY OF 2002 bracky therapy- seed implant for prostate cancer PATIENT HAS A CORONARY ARTERY STENT 2013 PROSTATE BIOPSY 2002 PROSTATE BIOPSY 2001 SHOULDER SURGERY HX Left 2001 spur removal TONSILLECTOMY HX 03/2017 FAMILY HISTORY Problem Relation Age of Onset other (unknown COD) Mother 99 other (unknown COD) Father 92 No Known Problems Sister No Known Problems Brother No Known Problems Brother No Known Problems Brother SOCIAL HISTORY: Tobacco Use: Never Alcohol Use: Not Currently Drug Use: Not on file Employer And Job Title: None on file Years Of Education Completed: Not specified Marital Status: MEDICATIONS: Current Outpatient Medications Medication Sig Niacinamide 500 mg tablet Take 500 mg by mouth two times a day with meals. Vitamin E, dl, acetate, (VITAMIN E) 200 unit capsule twice daily. azelastine (ASTELIN) 0.1% nasal spray place 1 spray into each nostril twice a day levothyroxine (SYNTHROID) 100 mcg tablet Take 100 mcg by mouth once daily. gluc samayoa/chondro samayoa A/vit C/Mn (GLUCOSAMINE-CHONDROITIN COMPLX ORAL) Take by mouth twice daily. lycopene 10 mg cap Take by mouth once daily. Magnesium Oxide-Mg Amino Acid Chelate (MAGNESIUM) 300 mg cap Take by mouth once daily. Niacin 250 mg tablet Take 250 mg by mouth daily with breakfast. fish,bora,flax oils-om3,6,9no1 (OMEGA 3-6-9) 1,200 mg cap Take 2 capsules by mouth twice daily. coenzyme Q10 (COENZYME Q-10) 100 mg cap capsule Take 200 mg by mouth twice daily. Ascorbic Acid 1,000 mg tablet Take 4,000 mg by mouth two times a day. cholecalciferol (VITAMIN D3) 5,000 unit tab Take 5,000 Units by mouth twice daily. atorvastatin (LIPITOR) 40 mg tablet Take 40 mg by mouth once daily. (Patient not taking: Reported on 02/15/2024) No current facility-administered medications for this visit. I have personally reviewed the patients past medical history including social, family, surgical, diagnostics, and medications. REVIEW OF SYSTEMS: Review of Systems Constitutional: Negative for chills and fatigue. Respiratory: Negative for chest tightness and shortness of breath. Cardiovascular: Negative for chest pain, palpitations and leg swelling. Neurological: Negative for dizziness, syncope, weakness and light-headedness. Hematological: Bruises/bleeds easily. Psychiatric/Behavioral: Negative for confusion and hallucinations. Vitals: BP 132/84 (BP Site: Left Arm, BP Position: Sitting, BP Cuff Size: Regular Adult) Pulse 87 Ht 180.3 cm (5' 11) Wt 102.5 kg (225 lb 15.5 oz) BMI 31.52 kg/m? PHYSICAL EXAMINATION: BP 132/84 (BP Site: Left Arm, BP Position: Sitting, BP Cuff Size: Regular Adult) Pulse 87 Ht 180.3 cm (5' 11) Wt 102.5 kg (225 lb 15.5 oz) BMI 31.52 kg/m? Last 3 Encounter BP Readings: Date: BP: 02/14/2023 134/82 02/24/2022 152/90 02/02/2021 138/84 Last 3 Encounter Pulse Readings: Date: Pulse: 02/14/2023 74 02/24/2022 81 02/02/2021 82 Last 3 Encounter Wt Readings: Date: Wt: 02/14/2023 108.9 kg (240 lb 1.3 oz) 02/24/2022 108.9 kg (240 lb) (more content not included)... Normal [facility] ECG COMPLETEon 02-15-2024 ECG COMPLETE Ventricular Rate : 8 7 BPM Atrial Rate : 87 BPM P-R Interval : 236 ms QRS Duration : 146 ms Q-T Interval : 416 ms QTC Calculation(Bazett) : 500 ms Calculated P [place] : -20 degrees Calculated R [place] : 80 degrees Calculated T [place] : 21 degrees Sinus rhythm with 1st degree AV block with occasional premature ventricular complexes and premature atrial complexes Right bundle branch block Confirmed by LANRE PADILLA DO ([id number]) on 02/21/2024 3:17:44 PM NAME : KIARA HAYWOOD PID : [id number] : 1940 Gender : Male Race : ORD : [id number] Procedure Date : Feb 15 2024 14:26:23 Edit Date : Feb 21 2024 15:17:47 Diagnosis: Sinus rhythm with 1st degree AV block with occasional premature ventricular complexes and premature atrial complexes Right bundle branch block Confirmed by LANRE PADILLA DO ([id number]) on 02/21/2024 3:17:44 PM Test Reason : HCS Location : 2 : [place] Overread By : LANRE PADILLA DO Edited By : LANRE PADILLA DO Referred By : , Acquired by : , [facility] .Auto Diffon 03-17-2023 Basophil, Absolute 0.0 10 3/mcL Normal 0.0-0.2 [facility] ([place]) Comment on above: Performed By: #### T SH, LIPID, CBC, PSA, ADIFF, A1C, GFR, ANEU, CMP #### [address] [address] Basophils/100 WBC (Bld) 0.6 % Normal 0.0-2.5 Pending [facility] To [facility] ([place]) Comment on above: Performed By: #### T SH, LIPID, CBC, PSA, ADIFF, A1C, GFR, ANEU, CMP #### [address] [address] Eosinophil, Absolute 0.1 10 3/mcL Normal 0.0-0.4 [facility] ([place]) Comment on above: Performed By: #### T SH, LIPID, CBC, PSA, ADIFF, A1C, GFR, ANEU, CMP #### [address] [address] Eosinophils/100 WBC (Bld) 1.4 % Normal 0.0-7.0 Pending [facility] To [facility] ([place] Comment on above: Performed By: #### T SH, LIPID, CBC, PSA, ADIFF, A1C, GFR, ANEU, CMP #### [address] [address] Lymphocyte, Absolute 1.5 10 3/mcL Normal 0.8-3.9 [facility] ([place] Comment on above: Performed By: #### T SH, LIPID, CBC, PSA, ADIFF, A1C, GFR, ANEU, CMP #### [address] [address] Lymphocytes/100 WBC (Bld) 23.4 % Normal 10.0-50.0 Pending [facility] ([place] Comment on above: Performed By: #### T SH, LIPID, CBC, PSA, ADIFF, A1C, GFR, ANEU, CMP #### [address] [address] Monocyte, Absolute 0.9 10 3/mcL Normal 0.2-1.0 [facility] ([place] Comment on above: Performed By: #### T SH, LIPID, CBC, PSA, ADIFF, A1C, GFR, ANEU, CMP #### [address] [address] Monocytes/100 WBC (Bld) 13.7 % High 1.7-13.0 Pending [facility] ([place] Comment on above: Performed By: #### T SH, LIPID, CBC, PSA, ADIFF, A1C, GFR, ANEU, CMP #### [address] [address] Neutrophils/100 WBC (Bld) 60.9 % Normal 37.0-80.0 Pending [facility] ([place] Comment on above: Performed By: #### T SH, LIPID, CBC, PSA, ADIFF, A1C, GFR, ANEU, CMP #### [address] [address] .GFRon 03-17-2023 GFR 98 ml/min/1.73sqm Normal Pending [facility] To [facility] ([place] Comment on above: Result Comment: GFR Population mean for , Non- Americans Ages 20-29 = 116 mL/min/1.73 sq.m. Ages 30-39 = 107 mL/min/1.73 sq.m. Ages 40-49 = 99 mL/min/1.73 sq.m. Ages 50-59 = 93 mL/min/1.73 sq.m. Ages 60-69 = 85 mL/min/1.73 sq.m. Ages 70+ = 75 mL/min/1.73 sq.m. Chronic Kidney Disease: Less than 60 mL/min/1.73 square meters End Stage Renal Disease: Less than 15 mL/min/1.73 square meters Performed By: #### T SH, LIPID, CBC, PSA, ADIFF, A1C, GFR, ANEU, CMP #### [address] [address] GFR Non- 81 ml/min/1.73sqm Normal Pending [facility] ([place]) Comment on above: Result Comment: GFR Population mean for , Non- Americans Ages 20-29 = 116 mL/min/1.73 sq.m. Ages 30-39 = 107 mL/min/1.73 sq.m. Ages 40-49 = 99 mL/min/1.73 sq.m. Ages 50-59 = 93 mL/min/1.73 sq.m. Ages 60-69 = 85 mL/min/1.73 sq.m. Ages 70+ = 75 mL/min/1.73 sq.m. Chronic Kidney Disease: Less than 60 mL/min/1.73 square meters End Stage Renal Disease: Less than 15 mL/min/1.73 square meters Performed By: #### T SH, LIPID, CBC, PSA, ADIFF, A1C, GFR, ANEU, CMP #### [address] [address] .NEUABSon 03-17-2023 Neutrophil, Absolute 4.0 10 3/mcL Normal 2.9-6.2 [facility] ([place]) Comment on above: Performed By: #### T SH, LIPID, CBC, PSA, ADIFF, A1C, GFR, ANEU, CMP #### [address] [address] A1Con 03-17-2023 HbA1c (Bld) [Mass fraction] 6.7 % High 4.3-6.4 P[facility] ([place] Comment on above: Performed By: #### T SH, LIPID, CBC, PSA, ADIFF, A1C, GFR, ANEU, CMP #### [address] [address] CBCon 03-17-2023 Erythrocyte distribution width (RBC) [Ratio] 14.5 % Normal 11.5-14.5 P[facility] ([place] Comment on above: Performed By: #### T SH, LIPID, CBC, PSA, ADIFF, A1C, GFR, ANEU, CMP #### [place] [address] Hematocrit (Bld) [Volume fraction] 47.8 % Normal 42.0-52.0 Pending [facility] To [facility] [place] Comment on above: Performed By: #### T SH, LIPID, CBC, PSA, ADIFF, A1C, GFR, ANEU, CMP #### [place] [address] Hgb 16.1 G/dL Normal 14.0-18.0 P[facility] ([place] Comment on above: Performed By: #### T SH, LIPID, CBC, PSA, ADIFF, A1C, GFR, ANEU, CMP #### [place] [address] MCH (RBC) [Entitic mass] 30.9 pg Normal 27.0-31.2 Pending [facility] [place] Comment on above: Performed By: #### T SH, LIPID, CBC, PSA, ADIFF, A1C, GFR, ANEU, CMP #### [place] [address] MCHC 33.7 G/dL Normal 31.8-35.4 P[facility] [place] Comment on above: Performed By: #### T SH, LIPID, CBC, PSA, ADIFF, A1C, GFR, ANEU, CMP #### [place] [address] MCV (RBC) [Entitic vol] 91.7 fL Normal 80.0-94.0 P[facility] [place] Comment on above: Performed By: #### T SH, LIPID, CBC, PSA, ADIFF, A1C, GFR, ANEU, CMP #### [place] [address] Platelet 185 10 3/mcL Normal 130-400 Pending [facility] [place] Comment on above: Performed By: #### T SH, LIPID, CBC, PSA, ADIFF, A1C, GFR, ANEU, CMP #### [address] [address] Platelet mean volume (Bld) [Entitic vol] 9.5 fL Normal 7.4-10.4 Pending [facility] [place] Comment on above: Performed By: #### T SH, LIPID, CBC, PSA, ADIFF, A1C, GFR, ANEU, CMP #### [address] [address] RBC 5.21 10 6/mcL Normal 4.04-6.13 P[facility] [place] Comment on above: Performed By: #### T SH, LIPID, CBC, PSA, ADIFF, A1C, GFR, ANEU, CMP #### [address] [address] WBC 6.6 10 3/mcL Normal 4.6-10.8 P[facility] [place] Comment on above: Performed By: #### T SH, LIPID, CBC, PSA, ADIFF, A1C, GFR, ANEU, CMP #### [address] [address] CMPon 03-17-2023 Albumin Level 4.1 G/dL Normal 3.4-4.8 Pending [facility] [place] Comment on above: Performed By: #### T SH, LIPID, CBC, PSA, ADIFF, A1C, GFR, ANEU, CMP #### [address] [address] Albumin/Globulin [Mass ratio] 1.4 {ratio} Normal 1.1-2.5 P[facility] [place] Comment on above: Performed By: #### T SH, LIPID, CBC, PSA, ADIFF, A1C, GFR, ANEU, CMP #### [address] [address] ALP [Catalytic activity/Vol] 67 U/L Normal 40-135 [facility]) Comment on above: Performed By: #### T SH, LIPID, CBC, PSA, ADIFF, A1C, GFR, ANEU, CMP #### [address] [address] ALT [Catalytic activity/Vol] 38 U/L Normal 16-63 P[facility] ([place] Comment on above: Performed By: #### T SH, LIPID, CBC, PSA, ADIFF, A1C, GFR, ANEU, CMP #### [address] [address] AST [Catalytic activity/Vol] 19 U/L Normal 10-40 P[facility] ([place] Comment on above: Performed By: #### T SH, LIPID, CBC, PSA, ADIFF, A1C, GFR, ANEU, CMP #### [address] [address] Bili Total 0.6 mg/dL Normal 0.2-1.0 Pending [facility] ([place] Comment on above: Result Comment: Use of this assay is not recommended for patients undergoing treatment with eltrombopag due to the potential for falsely elevated results. Performed By: #### T SH, LIPID, CBC, PSA, ADIFF, A1C, GFR, ANEU, CMP #### [address] [address] BUN/Creatinine Ratio 23 ratio Normal 7-27 [facility] ([place]) Comment on above: Performed By: #### T SH, LIPID, CBC, PSA, ADIFF, A1C, GFR, ANEU, CMP #### [address] [address] Calcium [Mass/Vol] 9.5 mg/dL Normal 8.4-10.2 [facility] ([place]) Comment on above: Performed By: #### T SH, LIPID, CBC, PSA, ADIFF, A1C, GFR, ANEU, CMP #### [address] [address] Chloride [Moles/Vol] 107 mmol/L Normal 98-107 [facility] ([place] Comment on above: Performed By: #### T SH, LIPID, CBC, PSA, ADIFF, A1C, GFR, ANEU, CMP #### [address] [address] CO2 [Moles/Vol] 25 mmol/L Normal 23-31 P[facility] ([place] Comment on above: Performed By: #### T SH, LIPID, CBC, PSA, ADIFF, A1C, GFR, ANEU, CMP #### [address] [address] Creatinine [Mass/Vol] 0.90 mg/dL Normal 0.70-1.30 [facility] ([place]) Comment on above: Performed By: #### T SH, LIPID, CBC, PSA, ADIFF, A1C, GFR, ANEU, CMP #### [address] [address] Electrolyte Balance 12.0 mEq/L Normal 4.0-15.0 [facility] ([place]) Comment on above: Performed By: #### T SH, LIPID, CBC, PSA, ADIFF, A1C, GFR, ANEU, CMP #### [address] [address] Globulin 2.9 G/dL Normal Pending [facility] ([place] Comment on above: Performed By: #### T SH, LIPID, CBC, PSA, ADIFF, A1C, GFR, ANEU, CMP #### [address] [address] Glucose [Mass/Vol] 126 mg/dL High 83-110 [facility] ([place]) Comment on above: Performed By: #### T SH, LIPID, CBC, PSA, ADIFF, A1C, GFR, ANEU, CMP #### [address] [address] Potassium [Moles/Vol] 4.2 mmol/L Normal 3.5-5.1 [facility] ([place]) Comment on above: Performed By: #### T SH, LIPID, CBC, PSA, ADIFF, A1C, GFR, ANEU, CMP #### [address] [address] Sodium [Moles/Vol] 144 mmol/L Normal 136-145 [facility] ([place]) Comment on above: Performed By: #### T SH, LIPID, CBC, PSA, ADIFF, A1C, GFR, ANEU, CMP #### [address] [address] Total Protein 7.0 G/dL Normal 6.4-8.2 Pending [facility] [place] Comment on above: Performed By: #### T SH, LIPID, CBC, PSA, ADIFF, A1C, GFR, ANEU, CMP #### [address] [address] Urea nitrogen [Mass/Vol] 21 mg/dL High 7-18 Pending [facility] [place] Comment on above: Performed By: #### T SH, LIPID, CBC, PSA, ADIFF, A1C, GFR, ANEU, CMP #### [address] [address] LIPIDon 03-17-2023 Cholesterol [Mass/Vol] 221 mg/dL High 0-200 Pending [facility] ([place] Comment on above: Result Comment: Chol esterol Reference Interval: Less than 200 Desirable 200-239 Borderline high risk 240 and above High risk Performed By: #### T SH, LIPID, CBC, PSA, ADIFF, A1C, GFR, ANEU, CMP #### [address] [address] Cholesterol in HDL [Mass/Vol] 58 mg/dL Normal 40-60 Pending [facility] ([place] Comment on above: Performed By: #### T SH, LIPID, CBC, PSA, ADIFF, A1C, GFR, ANEU, CMP #### [address] [address] Cholesterol in LDL [Mass/Vol] 142 mg/dL High 0-130 Pending [facility] ([place] Comment on above: Performed By: #### T SH, LIPID, CBC, PSA, ADIFF, A1C, GFR, ANEU, CMP #### [address] [address] Triglyceride [Mass/Vol] 105 mg/dL Normal 0-150 Pending [facility] ([place] Comment on above: Result Comment: Trig lyceride Reference Interval: Less than 150 Normal 150-199 Borderline high risk 200-499 High risk 500 or higher Very high risk Performed By: #### T SH, LIPID, CBC, PSA, ADIFF, A1C, GFR, ANEU, CMP #### [address] [address] MALBRon 03-17-2023 U Creatinine 76.5 mg/dL Normal 39.0-259.0 Pending [facility] [place] Comment on above: Performed By: #### T SH, LIPID, CBC, PSA, ADIFF, A1C, GFR, ANEU, CMP #### [address] [address] U Microalb 2677 mcg/dL Normal Pending [facility] ([place] Comment on above: Performed By: #### T SH, LIPID, CBC, PSA, ADIFF, A1C, GFR, ANEU, CMP #### [address] [address] U Ratio Alb/Cre 35 mcg/mg High 0-30 Pending [facility] ([place] Comment on above: Performed By: #### T SH, LIPID, CBC, PSA, ADIFF, A1C, GFR, ANEU, CMP #### [address] [address] PSAon 03-17-2023 Prostate Specific Antigen <0.05 Normal 0.00-4.00 [facility]) Comment on above: Performed By: #### T SH, LIPID, CBC, PSA, ADIFF, A1C, GFR, ANEU, CMP #### [address] [address] TSHon 03-17-2023 TSH Qn 3.42 m[IU]/L Normal 0.36-3.74 [facility]) Comment on above: Performed By: #### T SH, LIPID, CBC, PSA, ADIFF, A1C, GFR, ANEU, CMP #### [address] [address] XR FLUORO GUIDANCE FOR THERA PY INJECTIONon 02-09-2023 XR FLUORO GUIDANCE FOR THERAPY INJECTION ORIGINAL Images acquired, not reported on this accession number. Normal P[facility] ([place]) Basophil percentageOrdered B y: Dr. Gonzales on 05-07-2022 Chloride [Moles/Vol] 107 mmol/L 98-107 [facility] Glucose [Mass/Vol] 212 mg/dL 74-106 [facility] Comment on above: Glucose result great er than or equal to 200 mg/dLsuggests DIABETES MELLITUS per A.D.A. criteria. Potassium [Moles/Vol] 4.3 mmol/L 3.5-5.1 [facility] Sodium [Moles/Vol] 140 mmol/L 136-145 [facility] WBC (Bld) [#/Vol] 17.1 10*3/uL 4.4-11.0 [facility] Blood erythrocytes count (nu mber/volume)Ordered By: Dr. Gonzales on 05-07-2022 RBC (Bld) [#/Vol] 5.08 10*6/uL 4.6-6.2 [facility] Blood hemoglobin measurement (mass/volume)Ordered By: Dr. Gonzales on 05-07-2022 Hemoglobin (Bld) [Mass/Vol] 15.9 g/dL 13.0-16.5 [facility] Blood platelet mean volumeOr dered By: Dr. Gonzales on 05-07-2022 Platelet mean volume (Bld) [Entitic vol] 10.9 fL 6.2-12.0 [facility] Determination of erythrocyte mean corpuscular volume (MCV)Ordered By: Dr. Gonzales on 05-07-2022 MCV (RBC) [Entitic vol] 90.9 fL 80-94 [facility] Hematocrit Auto (Bld) [Volum e fraction]Ordered By: Dr. Gonzales on 05-07-2022 Hematocrit (Bld) [Volume fraction] 46.2 % 40-54 [facility] - Chemistry and C hemistry - challengeOrdered By: Dr. Gonzales on 05-07-2022 CO2 [Moles/Vol] 24.0 mmol/L 21.0-32.0 [facility] Urea nitrogen/Creatinine [Mass ratio] 19.3 mg/mg 10-20 [facility] - Hematology and Cell countsOrdered By: Dr. Gonzales on 05-07-2022 Erythrocyte distribution width (RBC) [Entitic vol] 46.4 fL 35.1-43.9 [facility] Erythrocyte distribution width (RBC) [Ratio] 14.0 % 11.6-14.6 [facility] MCH (RBC) [Entitic mass] 31.3 pg 27.0-32.0 [facility] MCHC Auto (RBC) [Mass/Vol]Or dered By: Dr. Gonzales on 05-07-2022 MCHC (RBC) [Mass/Vol] 34.4 g/dL 32-36 [facility] No Panel InformationOrdered By: Dr. Gonzales on 05-07-2022 Estimated Creatinine Clearance Calc 65.22 ml/min [facility] Estimated GFR (MDRD) Amer 100 mL/min >60 [facility] Comment on above: GFR Calc Estimated GFR (MDRD) Non-Af Amer 83 mL/min >60 [facility] Comment on above: Non- GFR Calc Platelets bldOrdered By: Dr. Gonzales on 05-07-2022 Platelets (Bld) [#/Vol] 175 10*3/uL 150-450 [facility] Serum or plasma calcium tori urement (mass/volume)Ordered By: Dr. Gonzales on 05-07-2022 Calcium [Mass/Vol] 9.0 mg/dL 8.5-10.1 [facility] Serum or plasma creatinine m easurement (mass/volume)Ordered By: Dr. Gonzales on 05-07-2022 Creatinine [Mass/Vol] 0.93 mg/dL 0.70-1.30 [facility] Comment on above: The validity of the calculated GFR & GFRAA in patients over 70 years has not been determined. Clinical correlation is essential. Serum or plasma urea nitroge n measurement (mass/volume)Ordered By: Dr. Gonzales on 05-07-2022 Urea nitrogen [Mass/Vol] 18 mg/dL 7-18 [facility] Thin prep Papanicolaou smear with manual screeningOrdered By: Dr. Gonzales on 05-07-2022 Thin prep Papanicolaou smear with manual screening 9 5-15 [facility] No Panel InformationOrdered By: Dr. Gonzales on 04-26-2022 Nasal Screen MRSA/MSSA [facility] Absolute lymphocyte countOrd ered By: Dr. Gonzales on 04-23-2022 Lymphocytes Auto (Unsp spec) [#/Vol] 1.71 10*3/uL 0.83-4.51 [facility] Basophil percentageOrdered B y: Dr. Gonzales on 04-23-2022 Basophils/100 WBC (Bld) 0.6 % 0-1 [facility] Eosinophils/100 WBC (Bld) 1.1 % 0-5 [facility] Neutrophils (Bld) [#/Vol] 3.8 10*3/uL 2.0-7.7 [facility] Neutrophils/100 WBC (Bld) 58.1 % 47-70 [facility] Blood lymphocytes/100 leukoc ytesOrdered By: Dr. Gonzales on 04-23-2022 Lymphocytes/100 WBC (Bld) 26.5 % 19-41 [facility] Blood monocytes/100 leukocyt esOrdered By: Dr. Gonzales on 04-23-2022 Monocytes/100 WBC (Bld) 13.5 % 0-10 [facility] - Chemistry and C hemistry - challengeOrdered By: Dr. Palacio on 04-23-2022 Magnesium [Mass/Vol] 2.1 mg/dL 1.6-2.6 [facility] Laboratory - Hematology and Cell countsOrdered By: Dr. Gonzales on 04-23-2022 Immature granulocytes/100 WBC (Bld) 0.200 % 0.0-0.9 [facility] Comment on above: IG% - Immature Granu locytes (promyelocytes, myelocytes and metamyelocytes) > 1% indicates that a LEFT SHIFT is Present. Nucleated RBC/100 WBC (Bld) [Ratio] 0 % 0-5 [facility] No Panel InformationOrdered By: Dr. Palacio on 04-23-2022 Thyroid Stimulating Hormone (TSH) 3.87 uIU/mL 0.358-3.74 [facility] LABORATORYOrdered By: Maykel Felipe on 03-09-2022 Albumin DL <= 20 mg/L (U) [Mass/Vol] 856 mcg/dL Invalid Interpretation Code AO ADM SS Albumin/Creatinine DL <= 20 mg/L (U) [Mass ratio] 52 mcg/mg Invalid Interpretation Code 0 - 30 mcg/mg AO ADM SS Creatinine (U) [Mass/Vol] 16.6 mg/dL Invalid Interpretation Code 39.0 - 259.0 mg/dL AO ADM SS Calcium [Mass/Vol] 9.7 mg/dL Invalid Interpretation Code 8.4 - 10.2 mg/dL AO ADM SS Chloride [Moles/Vol] 104 mmol/L Invalid Interpretation Code 98 - 107 mmol/L AO ADM SS CO2 [Moles/Vol] 30 mmol/L Invalid Interpretation Code 23 - 31 mmol/L AO ADM SS Creatinine [Mass/Vol] 0.85 mg/dL Invalid Interpretation Code 0.70 - 1.30 mg/dL AO ADM SS Electrolyte Balance 6.0 mEq/L Invalid Interpretation Code 4.0 - 15.0 mEq/L AO ADM SS Glucose [Mass/Vol] 122 mg/dL Invalid Interpretation Code 83 - 110 mg/dL AO ADM SS HbA1c (Bld) [Mass fraction] 6.1 % Invalid Interpretation Code 4.3 - 6.4 % AO ADM SS Potassium [Moles/Vol] 4.5 mmol/L Invalid Interpretation Code 3.5 - 5.1 mmol/L AO ADM SS Sodium [Moles/Vol] 140 mmol/L Invalid Interpretation Code 136 - 145 mmol/L AO ADM SS TSH Qn 3.80 m[IU]/L Invalid Interpretation Code 0.36 - 3.74 mcIU/mL AO ADM SS Urea nitrogen [Mass/Vol] 17 mg/dL Invalid Interpretation Code 7 - 18 mg/dL AO ADM SS Urea nitrogen/Creatinine [Mass ratio] 20 ratio Invalid Interpretation Code 7 - 27 ratio AO ADM SS LABORATORYOrdered By: SYSTEM SYSTEM on 03-09-2022 GFR 105 ml/min/1.73sqm Invalid Interpretation Code AO Chemistry S GFR Non- 87 ml/min/1.73sqm Invalid Interpretation Code AO Chemistry S CNOVon 02-24-2022 CNOV Office Visit ([place] ) -------- KIARA HAYWOOD ([id number]) 1940 M Date Time Provider Department 02/24/22 1:00 PM LANRE PADILLA During your visit today, we recorded the following information about you: Pulse Blood pressure Weight Height 81/minute 152/90 108.9 kg 1.803 m Lanre Padilla DO 02/27/2022 4:58 AM Signed Referring Provider: Lanre Padilla DO Date: February 24, 2022 Chief Complaint: Established Patient Follow-Up HISTORY OF PRESENT ILLNESS: Kiara Haywood is a 81 year old male who presents for Established Patient Follow-Up. ALLERGIES No Known Allergies PAST MEDICAL HISTORY: PAST MEDICAL HISTORY Diagnosis Date Abnormal stress test Atypical chest pain CAD in [place] artery Edema of lower extremity History of coronary artery stent placement 04/26/2012 proximal LAD promus element stent History of stress test 05/31/2018 no evidence of ischemia or infarction EF 54% History of stress test 10/03/2013 small inferoapical scar no reversible ischemia EF 59% History of stress test 02/12/2021 normal exercise stress perfusion imaging normal LV systolic function EF 50% Hypertension Leg edema, right Mixed hyperlipidemia NELLY (obstructive sleep apnea) Prostate cancer (HCC) Right knee pain Snores PAST SURGICAL HISTORY Procedure Laterality Date ARTHRP KNE CONDYLEANDPLATU MEDIALANDLAT COMPARTMENTS Bilateral 04/2015 BACK SURGERY HX 2002 L5-6 microdecompression 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 NOSE SURGERY HX 08/2016 sinus cleaning and deviated septum repair PAST SURGICAL HISTORY OF 2002 bracky therapy- seed implant for prostate cancer PATIENT HAS A CORONARY ARTERY STENT 2012 PROSTATE BIOPSY 2002 PROSTATE BIOPSY 2001 SHOULDER SURGERY HX Left 2001 spur removal TONSILLECTOMY HX 03/2017 FAMILY HISTORY Problem Relation Age of Onset other (unknown COD) Mother 99 other (unknown COD) Father 92 No Known Problems Sister No Known Problems Brother No Known Problems Brother No Known Problems Brother SOCIAL HISTORY: Tobacco Use: Never Alcohol Use: Not Currently Drug Use: Not on file Employer And Job Title: None on file Years Of Education Completed: Not specified Marital Status: MEDICATIONS: Current Outpatient Medications Medication Sig celecoxib (CELEBREX) 100 mg capsule Take 100 mg by mouth once daily. Vitamin E, dl, acetate, (VITAMIN E) 200 unit capsule twice daily. atorvastatin (LIPITOR) 40 mg tablet Take 40 mg by mouth once daily. azelastine (ASTELIN) 0.1% nasal spray place 1 spray into each nostril twice a day levothyroxine (SYNTHROID) 88 mcg tablet Take 88 mcg by mouth once daily. gluc samayoa/chondro samayoa A/vit C/Mn (GLUCOSAMINE-CHONDROITIN COMPLX ORAL) Take by mouth twice daily. lycopene 10 mg cap Take by mouth once daily. Magnesium Oxide-Mg Amino Acid Chelate (MAGNESIUM) 300 mg cap Take by mouth once daily. Niacin 250 mg tablet Take 250 mg by mouth daily with breakfast. fish,bora,flax oils-om3,6,9no1 (OMEGA 3-6-9) 1,200 mg cap Take 2 capsules by mouth twice daily. coenzyme Q10 (COENZYME Q-10) 100 mg cap capsule Take 200 mg by mouth twice daily. Ascorbic Acid 1,000 mg tablet Take 2,000 mg by mouth twice daily. cholecalciferol (VITAMIN D3) 5,000 unit tab Take 5,000 Units by mouth twice daily. No current facility-administered medications for this visit. I have personally reviewed the patients past medical history including social, family, surgical, diagnostics, and medications. REVIEW OF SYSTEMS: Review of Systems Constitutional: Negative for chills and fatigue. Respiratory: Negative for chest tightness and shortness of breath. Cardiovascular: Negative for chest pain, palpitations and leg swelling. Neurological: Negative for dizziness, syncope, weakness and light-headedness. Hematological: Does not bruise/bleed easily. Psychiatric/Behavioral: Negative for confusion and hallucinations. Vitals: BP 152/90 (BP Site: Left Arm, BP Position: Sitting) Pulse 81 Ht 180.3 cm (5' 11) Wt 108.9 kg (240 lb) BMI 33.47 kg/m? PHYSICAL EXAMINATION: BP 152/90 (BP Site: Left Arm, BP Position: Sitting) Pulse 81 Ht 180.3 cm (5' 11) Wt 108.9 kg (240 lb) BMI 33.47 kg/m? Last 3 Encounter BP Readings: Date: BP: 02/24/2022 152/90 02/02/2021 138/84 03/21/2020 140/90 Last 3 Encounter Pulse Readings: Date: Pulse: 02/24/2022 81 02/02/2021 82 03/21/2020 70 Last 3 Encounter Wt Readings: Date: Wt: 02/24/2022 108.9 kg (240 lb) 02/02/2021 104.8 kg (231 lb) 03/21/2020 109.8 kg (242 lb) Physical Exam Vitals reviewed. Constitutional: General: He is not in acute distress. Appearance: Normal appearance. HENT: Head: Normocephalic. Right Ear: External ear normal. Left Ear: External ear normal. Nose: Nose normal. Mouth/Throat: Mouth: Mucous membranes are moist. Eyes: Extraocular (more content not included)... Normal [facility] ECG COMPLETEon 02-24-2022 ECG COMPLETE Ventricular Rate : 8 1 BPM Atrial Rate : 81 BPM P-R Interval : 260 ms QRS Duration : 90 ms Q-T Interval : 368 ms QTC Calculation(Bazett) : 427 ms Calculated P [place] : -7 degrees Calculated R [place] : 56 degrees Calculated T [place] : -2 degrees SINUS RHYTHM WITH SINUS ARRHYTHMIA WITH 1ST DEGREE AV BLOCK MINIMAL VOLTAGE CRITERIA FOR LVH, MAY BE NORMAL VARIANT NONSPECIFIC ST AND T WAVE ABNORMALITY ABNORMAL ECG NO PREVIOUS ECGS AVAILABLE Confirmed by LANRE PADILLA DO ([id number]) on 02/28/2022 6:19:42 PM NAME : KIARA HAYWOOD PID : [id number] : 1940 Gender : Male Race : ORD : [id number] Procedure Date : Feb 24 2022 14:10:41 Edit Date : Feb 28 2022 18:19:43 Diagnosis: SINUS RHYTHM WITH SINUS ARRHYTHMIA WITH 1ST DEGREE AV BLOCK MINIMAL VOLTAGE CRITERIA FOR LVH, MAY BE NORMAL VARIANT NONSPECIFIC ST AND T WAVE ABNORMALITY ABNORMAL ECG NO PREVIOUS ECGS AVAILABLE Confirmed by LANRE PADILLA DO ([id number]) on 02/28/2022 6:19:42 PM Test Reason : Location : [address] [place] [address] Overread By : LANRE PADILLA DO Edited By : LANRE PADILLA DO Referred By : LANRE PADILLA Acquired by : , Normal [facility] LABORATORYOrdered By: Maykel Felipe on 08-18-2021 CPK 97 1 Invalid Interpretation Code 39 - 308 U/L AO ADM SS LABORATORYOrdered By: Julia Kerr on 08-10-2021 Albumin BCP dye [Mass/Vol] 4.5 G/dL Invalid Interpretation Code 3.4 - 4.8 G/dL AO ADM SS Albumin/Globulin [Mass ratio] 1.4 {ratio} Invalid Interpretation Code 1.1 - 2.5 ratio AO ADM SS ALP [Catalytic activity/Vol] 74 U/L Invalid Interpretation Code 40 - 135 U/L AO ADM SS ALT With P-5'-P [Catalytic activity/Vol] 32 U/L Invalid Interpretation Code 16 - 63 U/L AO ADM SS AST With P-5'-P [Catalytic activity/Vol] 20 U/L Invalid Interpretation Code 10 - 40 U/L AO ADM SS Bilirubin [Mass/Vol] 1.2 mg/dL Invalid Interpretation Code 0.2 - 1.0 mg/dL AO ADM SS C-Reactive Protein mg/dL Invalid Interpretation Code 0.0 - 0.9 mg/dL AO Chemistry S Calcium [Mass/Vol] 9.7 mg/dL Invalid Interpretation Code 8.4 - 10.2 mg/dL AO ADM SS Chloride [Moles/Vol] 104 mmol/L Invalid Interpretation Code 98 - 107 mmol/L AO ADM SS CO2 [Moles/Vol] 30 mmol/L Invalid Interpretation Code 23 - 31 mmol/L AO ADM SS Creatinine [Mass/Vol] 0.85 mg/dL Invalid Interpretation Code 0.70 - 1.30 mg/dL AO ADM SS Electrolyte Balance 7.0 mEq/L Invalid Interpretation Code 4.0 - 15.0 mEq/L AO ADM SS Free T4 [Mass/Vol] 1.46 ng/dL Invalid Interpretation Code 0.76 - 1.46 ng/dL AO ADM SS Globulin 3.2 G/dL Invalid Interpretation Code AO ADM SS Glucose [Mass/Vol] 114 mg/dL Invalid Interpretation Code 83 - 110 mg/dL AO ADM SS Potassium [Moles/Vol] 4.4 mmol/L Invalid Interpretation Code 3.5 - 5.1 mmol/L AO ADM SS Protein [Mass/Vol] 7.7 G/dL Invalid Interpretation Code 6.4 - 8.2 G/dL AO ADM SS Sodium [Moles/Vol] 141 mmol/L Invalid Interpretation Code 136 - 145 mmol/L AO ADM SS TSH Qn 0.06 m[IU]/L Invalid Interpretation Code 0.36 - 3.74 mcIU/mL AO ADM SS Urea nitrogen [Mass/Vol] 17 mg/dL Invalid Interpretation Code 7 - 18 mg/dL AO ADM SS Urea nitrogen/Creatinine [Mass ratio] 20 ratio Invalid Interpretation Code 7 - 27 ratio AO ADM SS LABORATORYOrdered By: Maykel Felipe on 08-10-2021 Basophil, Absolute 0.00 103/mcL Invalid Interpretation Code 0.00 - 0.19 10^3/mcL AO Auto Heme SS Basophils/100 WBC (Bld) 0.8 % Invalid Interpretation Code 0.0 - 2.5 % AO Auto Heme SS Eosinophil, Absolute 0.10 103/mcL Invalid Interpretation Code 0.00 - 0.40 10^3/mcL AO Auto Heme SS Eosinophils/100 WBC (Bld) 1.2 % Invalid Interpretation Code 0.0 - 7.0 % AO Auto Heme SS Erythrocyte distribution width (RBC) [Ratio] 14.7 % Invalid Interpretation Code 11.5 - 14.5 % AO Auto Heme SS Hematocrit (Bld) [Volume fraction] 48.1 % Invalid Interpretation Code 42.0 - 52.0 % AO Auto Heme SS Hemoglobin (Bld) [Mass/Vol] 16.7 G/dL Invalid Interpretation Code 14.0 - 18.0 G/dL AO Auto Heme SS Lymphocyte, Absolute 1.70 103/mcL Invalid Interpretation Code 0.77 - 3.85 10^3/mcL AO Auto Heme SS Lymphocytes/100 WBC (Bld) 25.9 % Invalid Interpretation Code 10.0 - 50.0 % AO Auto Heme SS MCH (RBC) [Entitic mass] 31.1 pg Invalid Interpretation Code 27.0 - 31.2 pg AO Auto Heme SS MCHC (RBC) [Mass/Vol] 34.7 G/dL Invalid Interpretation Code 31.8 - 35.4 G/dL AO Auto Heme SS MCV (RBC) [Entitic vol] 89.5 fL Invalid Interpretation Code 80.0 - 94.0 fL AO Auto Heme SS Monocyte, Absolute 0.90 103/mcL Invalid Interpretation Code 0.15 - 1.00 10^3/mcL AO Auto Heme SS Monocytes/100 WBC (Bld) 13.7 % Invalid Interpretation Code 1.7 - 13.0 % AO Auto Heme SS Neutrophil, Absolute 3.80 103/mcL Invalid Interpretation Code 2.85 - 6.16 10^3/mcL AO Auto Heme SS Neutrophils/100 WBC (Bld) 58.4 % Invalid Interpretation Code 37.0 - 80.0 % AO Auto Heme SS Platelet mean volume (Bld) [Entitic vol] 8.9 fL Invalid Interpretation Code 7.4 - 10.4 fL AO Auto Heme SS Platelets (Bld) [#/Vol] 187 103/mcL Invalid Interpretation Code 130 - 400 10^3/mcL AO Auto Heme SS RBC (Bld) [#/Vol] 5.37 106/mcL Invalid Interpretation Code 4.04 - 6.13 10^6/mcL AO Auto Heme SS WBC (Bld) [#/Vol] 6.50 103/mcL Invalid Interpretation Code 4.60 - 10.80 10^3/mcL AO Auto Heme SS LABORATORYOrdered By: SYSTEM SYSTEM on 08-10-2021 GFR 105 ml/min/1.73sqm Invalid Interpretation Code AO Chemistry S GFR Non- 87 ml/min/1.73sqm Invalid Interpretation Code AO Chemistry S CARD[facility] 02-12-2021 CARD.[facility] Patient Name: KIARA HAYWOOD [address] Date of : 40 [place], [place] [address] Unit Number: [id number] Exercise SPECT Patient Status: REG CLI Attending Doctor: Lanre Padilla DO Service Date: 02/12/211530 Exercise SPECT Vitals Age: 80 years old Gender: Male Height: feet inches Weight: pounds Blood Pressure: Heart Rate: Clinical Indication: cad Technique: Myocardial perfusion imaging was performed at rest following the injection of [13.5] mCi of Tc99m SESTAMIBI. The patient exercised [4] minutes 17 seconds on a treadmill using a José Miguel protocol completing [6.1] METS. [105]% of the maximum predicted heart rate was reached. No chest pain during exercise. The test was stopped due to fatigue. Normal hemodynamic response to exercise. At peak exercise, the patient was injected with [32.4] mCi of Tc99m SESTAMIBI. ECG: Rest ECG showed [afib, RBBB, PVCs]. After stress, no ischemic changes or arrhythmia was seen. PVCs seen Imaging: The overall imaging quality is satisfactory. Left ventricular size is normal EDV [80] mL. SPECT multiplanar images demonstrate no fixed or reversible defects. Gated SPECT imaging reveals normal left ventricular myocardial wall motion and thickening. Diaphrgam artifact. The left ventricular ejection fraction is calculated at [50]%. Impression: 1. Normal exercise stress perfusion imaging. 2. Normal left ventricular systolic function. 3. No ischemic changes by ECG. Disclaimer This dictation was created using voice recognition software. Phonetic and/or minor grammatical errors may exist. eSign Date and Time [place] Verified/Reviewed by 02/12/211532 [facility] Exercise SPECT Normal [facility] LABORATORYOrdered By: Julia Kerr on 01-16-2021 Free T3 [Mass/Vol] 2.77 pg/mL Invalid Interpretation Code 2.30 - 4.00 pg/mL AO ADM SS Free T4 [Mass/Vol] 1.34 ng/dL Invalid Interpretation Code 0.76 - 1.46 ng/dL AO ADM SS TSH Qn 1.41 m[IU]/L Invalid Interpretation Code 0.36 - 3.74 mcIU/mL AO ADM SS Surgical Pathologyon 017 Surgical Pathology [id number] [facility] PATHOLOGY AND LABORATORY MEDICINE [address] [place] [address] Fax - FINAL SURGICAL PATHOLOGY REPORT NAME: KIARA HAYWOOD .O.B.: 1940 [address] [place] NO.: [id number]: WSDSO SDS 12 PROCEDURE 03/17/2017 DATE:SURGEON: PADMINI JAIN DO RECEIVED 03/18/2017 DATE:ATTENDING: PADMINI JAIN DO REPORT DATE: 03/23/2017 COPIES TO: ___DIAGNOSIS:A. BILATERAL TONSILS - TWO TONSILS WITH NO DIAGNOSTIC PATHOLOGICAL CHANGESB. UVULA LESION - POLYPOID MUCOSA WITH SQUAMOUS EPITHELIAL HYPERPLASIA AND REACTIVE CHANGES; NEGATIVE FOR DYSPLASIA OR MALIGNANCY. Comment: Deeper levels examined.TN/TN LANDON CARLOS M.D. ____CLINICAL INFORMATION: Hypertrophy tonsils, benign neoplasm uvulaSPECIMEN: (A) TONSIL(S), EXCISION , BILATERAL TONSILS,RIGHT WITH PIN (B) LESION, BIOPSY, NOS , UVULA LESION GROSS DESCRIPTION:A. Bilateral tonsils, right with pin per requisitionReceived in formalin are two palatine tonsils; the one containing asafety pin through it is designated right. The right tonsil measures1.5 x 1 x 0.6 cm while the left tonsil measures 2 x 1.3 x 1 cm. Cutsurfaces are bulging, pink-priest. Semaphore Operator section of the righttonsil submitted in cassette 1. Semaphore Operator section of the lefttonsil is submitted in cassette 2. (bits ss, 2)B. Lesion uvulaReceived in formalin is a uvula measuring 0.9 cm across the base and1.5 cm [id number]. The mucosal surface is glistening, smooth,purplish-priest. On transection, cut surfaces are carranza-priest. The specimenis bisected and entirely submitted. (2 ns, 1) [id number]: The following statement applies to allimmunohistochemistry, in situ hybridization, molecular studies, andimmunofluorescence testing.The use of one or more reagents in the above tests is regulated as ananalyte specific reagent (ASR). These tests were developed and theirperformance characteristics determined by the [facility]. They have not been cleared by the US Food and DrugAdministration (FDA). The FDA has determined that such clearance orapproval is not necessary.All the above immunostains were performed on paraffin embedded tissue.Appropriate positive and negative controls (where applicable) were runin parallel with the patient's specimen; these controls showed expectedstaining pattern, with acceptable intensity of staining.Immunohistochem ical assays have not been validated on decalcifiedtissues. Results should be interpreted with caution given the raisedpossibility of false negativity on decalcified specimens.Case reviewed at [place] [address] [address], [id number]. DEPARTMENT OF PATHOLOGY AND LABORATORY MEDICINE [place], [place] [address] Normal [facility] Comment on above: Performed By: #### S UR ####Performing Lab is in report Otheron 03-14-2001 CONVERTED ELECTRONIC SIGNATURE MARU KRISHNA M.D. (Electronic signature on file) Final Signed Out: 03/14/2001 15:[address] 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 [facility] CONVERTED ORDERING PROVIDER Ordering Provider: MURIEL LARRY [facility] Vital Signs Date Time Vital Sign Value Performing Clinician Facility 02-15-2024 13:22-0500 Body height 180.3 cm LanreBaihe Work Phone: [facility] 02-15-2024 13:22-0500 Body mass index (BMI) [Ratio] 31.52 kg/m2 [facility]aihe Work Phone: [facility] 02-15-2024 13:22-0500 Body weight 102.5 kg LanreBaihe Work Phone: [facility] 02-15-2024 13:22-0500 Diastolic blood pressure 84 mm[Hg] [facility]aihe Work Phone: [facility] 02-15-2024 13:22-0500 Heart rate 87 /min LanreBaihe Work Phone: [facility] 02-15-2024 13:22-0500 Systolic blood pressure 132 mm[Hg] [facility]reBaihe Work Phone: [facility] 02-14-2023 13:19-0500 Diastolic blood pressure 82 mm[Hg] [facility]ai[facility] Work Phone: [facility] 02-14-2023 13:19-0500 Systolic blood pressure 134 mm[Hg] [facility] Work Phone: [facility] 02-14-2023 13:13-0500 Body height 180.3 cm [facility] Work Phone: [facility] 02-14-2023 13:13-0500 Body weight 108.9 kg [facility] Work Phone: [facility] 02-14-2023 13:13-0500 Heart rate 74 /min [facility] Work Phone: [facility] 01-25-2023 13:15-0400 Diastolic blood pressure 63 mm[Hg] [facility] 01-25-2023 13:15-0400 Heart rate 65 /min [facility] 01-25-2023 13:15-0400 Respiratory rate 18 /min [facility] 01-25-2023 13:15-0400 SaO2% (BldA) [Mass fraction] 94 % [facility] 01-25-2023 13:15-0400 Systolic blood pressure 150 mm[Hg] [facility] 01-25-2023 12:05-0400 Body height 180.34 cm [facility] 01-25-2023 12:05-0400 Body mass index (BMI) [Ratio] 33.2 kg/m2 [facility] 01-25-2023 12:05-0400 Body temperature 97.1 [degF] [facility] 01-25-2023 12:05-0400 Body weight 107.95 kg [facility] 05-07-2022 10:40-0500 Body temperature 97.5 [degF] Dr. Elieser Brothers Work Phone: [facility] 05-07-2022 10:40-0500 Diastolic blood pressure 65 mm[Hg] Dr. Elieser Brothers Work Phone: [facility] 05-07-2022 10:40-0500 Heart rate 83 /min Dr. Elieser Brothers Work Phone: [facility] 05-07-2022 10:40-0500 Respiratory rate 18 /min Dr. Elieser Brothers Work Phone: [facility] 05-07-2022 10:40-0500 SaO2% (BldA) [Mass fraction] 95 % Dr. Elieser Brothers Work Phone: [facility] 05-07-2022 10:40-0500 Systolic blood pressure 141 mm[Hg] Dr. Elieser Brothers Work Phone: [facility] 05-07-2022 02:45-0500 Inhaled oxygen flow rate 2 L/min Dr. Elieser Brothers Work Phone: [facility] 05-06-2022 20:22-0500 Body height 180.[address] Elieser Brothers Work Phone: [facility] 05-06-2022 20:22-0500 Body mass index (BMI) [Ratio] 32.8 kg/m2 Dr. Elieser Brothers Work Phone: [facility] 05-06-2022 20:22-0500 Body weight [address] Elieser Brothers Work Phone: [facility] 03-22-2022 11:15-0500 Diastolic Blood Pressure Non-Invasive [address] GARY GARZON MD [facility] 03-22-2022 11:15-0500 Systolic Blood Pressure Non-Invasive [address] GARY GARZON MD [facility] 03-22-2022 11:12-0500 Heart rate 64 /min DR GARY GARZON MD [facility] 03-22-2022 11:12-0500 Respiratory rate 14 /min DR GARY GARZON MD [facility] 03-22-2022 11:07-0500 Diastolic Blood Pressure Non-Invasive [address] GARY GARZON MD [facility] 03-22-2022 11:07-0500 Heart rate 64 /min DR GARY GARZON MD [facility] 03-22-2022 11:07-0500 Respiratory rate 14 /min DR GARY GARZON MD [facility] 03-22-2022 11:07-0500 Systolic Blood Pressure Non-Invasive [address] GARY GARZON MD [facility] 03-22-2022 11:00-0500 Heart rate 67 /min DR GARY GARZON MD [facility] 03-22-2022 11:00-0500 Respiratory rate 12 /min DR GARY GARZON MD [facility] 03-22-2022 11:00-0500 Systolic Blood Pressure Non-Invasive [address] GARY GARZON MD [facility] 03-22-2022 10:50-0500 Respiratory Rate - Anes 13 br/min DR GARY GARZON MD [facility] 03-22-2022 10:45-0500 Respiratory Rate - Anes 12 br/min DR GARY GARZON MD [facility] 03-22-2022 10:36-05[address] Pressure Cuff Size DR GARY GARZON MD [facility] 03-22-2022 10:36-[address] GARY GARZON MD [facility] 03-22-2022 10:36-[address] GARY GARZON MD [facility] 03-22-2022 10:36-0500 Body height [address] GARY GARZON MD [facility] 03-22-2022 10:36-0500 Body temperature 97.52 [degF] DR GARY GARZON MD [facility] 03-22-2022 10:36-0500 Body weight [address] GARY GARZON MD [facility] 03-22-2022 10:36-0500 Body weight 33.27 kg/m2 DR GARY GARZON MD [facility] 03-22-2022 10:36-0500 Heart rate 70 /min DR GARY GARZON MD [facility] 02-24-2022 13:10-0500 Body height 180.3 cm [facility] Work Phone: [facility] 02-24-2022 13:10-0500 Body weight 108.86 kg [facility] Work Phone: [facility] 02-24-2022 13:10-0500 Diastolic blood pressure 90 mm[Hg] Lanre Gross DO Work Phone: [facility] 02-24-2022 13:10-0500 Heart rate 81 /min [facility] Work Phone: [facility] 02-24-2022 13:10-0500 Systolic blood pressure 152 mm[Hg] Lanre Gross DO Work Phone: [facility] Encounters Encounter Date Encounter Type Care Provider Facility Start: 09-05-2024 ambulatory Kirsten Ivan Facility:[facility] Start: 09-04-2024 Encounter for preprocedural laboratory examination Kirsten Ivan [facility] Start: 08-20-2024 End: 08-20-2024 ambulatory Elieser Naveed Facility:[facility] Start: 08-09-2024 End: 08-09-2024 ambulatory Kirsten Ivan Facility:[facility] Start: 04-10-2024 End: 04-10-2024 ambulatory ELIESER BROTHERS DO Facility:[facility] Start: 04-10-2024 End: 04-10-2024 Patient encounter procedure ELIESER BROTHERS DO [facility] Start: 04-03-2024 End: 04-03-2024 ambulatory ELIESER BROTHERS Facility:[facility] Start: 04-03-2024 End: 04-03-2024 Patient encounter procedure ELIESER NAVEED [facility] Start: 02-15-2024 End: 02-15-2024 Patient encounter procedure Lanre Arsalan Padilla DO Work Phone: [facility] Comment on above: Essential hypertensi on, benign (Primary Dx); Mixed hyperlipidemia; CAD in [place] artery; NELLY (obstructive sleep apnea); History of coronary artery stent placement; History of stress test; Non-smoker Start: 02-15-2024 End: 02-15-2024 ambulatory ELIESER BROTHERS Facility:[id number] Start: 03-17-2023 End: 03-22-2023 ambulatory ELIESER MACIASSANate RAO Facility:[facility] Start: 02-14-2023 End: 02-14-2023 Patient encounter procedure Lanre Padilla DO Work Phone: [facility] Comment on above: Essential hypertensi on, benign (Primary Dx); Mixed hyperlipidemia; NELLY (obstructive sleep apnea); History of coronary artery stent placement; History of stress test; Non-smoker Start: 02-09-2023 End: 02-09-2023 ambulatory ELIESER MACIASSHANTEL RAO Facility:[facility] Start: 02-02-2023 ambulatory RAVIN WALKER Facili ty:[facility] Start: 01-25-2023 End: 01-25-2023 ambulatory [facility] Work Phone: Start: 01-25-2023 End: 01-25-2023 Patient encounter procedure [facility], [facility] Work Phone: Start: 05-06-2022 End: 05-07-2022 Evaluation and management of inpatient Dr. Elieser Brothers Work Phone: [facility] 3 Start: 05-06-2022 End: 05-07-[address] Elieser Brothers Work Phone: [facility] Work Phone: Start: 04-23-2022 End: 04-23-2022 Non-patient / Non-visit Dr. Elieser Brothers Work Phone: [facility] Start: 04-08-2022 End: 04-08-[address] Elieser Brothers Work Phone: [facility] Work Phone: Start: 04-08-2022 End: 04-08-[address] Elieser Brothers Work Phone: [facility]Cat Scan, [facility] Start: 03-26-2022 End: 03-26-[address] Elieser Brothers Work Phone: [facility] Work Phone: Start: 03-26-2022 End: 03-26-[address] [facility] Start: 03-22-2022 End: 03-22-[address] GARY GARZON MD [facility] Start: 03-09-2022 End: 03-09-2022 Patient encounter procedure ELIESER BROTHERS DO [facility] Start: 02-24-2022 End: 02-24-2022 ambulatory ELIESER BROTHERS Facility:[facility] Start: 02-24-2022 End: 02-24-2022 Patient encounter procedure Lanre Padilla DO Work Phone: [facility] Comment on above: Essential hypertensi on, benign (Primary Dx); Mixed hyperlipidemia; CAD in [place] artery; History of coronary artery stent placement; History of stress test; Non-smoker Start: 02-16-2022 End: 02-16-[address] Elieser Brothers Work Phone: [facility] Start: 10-02-2021 End: 11-10-2021 Physical therapy management KEVON NIEVES MD [facility] Start: 09-22-2021 End: 09-22-2021 Patient encounter procedure KEVON NIEVES MD [facility] Start: 08-19-2021 End: 08-19-2021 Minor Procedure KEVON NIEVES MD [facility] Start: 08-18-2021 End: 08-18-2021 Patient encounter procedure KEVON NIEVES MD [facility] Start: 08-10-2021 End: 08-10-2021 Patient encounter procedure HOMER LUNA PROPERTY MANAGEMENT COORDINATOR - BUDGET ASSISTANT [facility] Start: 01-16-2021 End: 01-16-2021 Patient encounter procedure ELIESER BROTHERS DO [facility] Start: 03-17-2017 Ambulatory [facility] Start: 03-13-2001 End: 03-13-2001 Patient encounter procedure Muriel Larry Work Phone: [facility] Start: 03-13-2001 Results Only Muriel Larry Work Phone: [facility] Procedures Date Procedure Procedure Detail Performing Clinician Start: 02-15-2024 Ecg routine ecg w/le ast 12 lds i&r only Lanre Padilla DO Work Phone: Start: 02-14-2023 Ecg routine ecg w/le ast 12 lds i&r only Lanre Padilla DO Work Phone: Start: 01-25-2023 Computerized axial tomography of lumbar spine with contrast Start: 01-25-2023 Myelogram Start: 05-06-2022 Plain X-ray of shoulder Dr. Elieser Brothers Work Phone: Start: 05-06-2022 Reverse prosthetic t otal arthroplasty of right shoulder Dr. Elieser Brothers Work Phone: Start: 04-23-2022 Plain chest X-ray Dr. Celeste Brothers Work Phone: Start: 04-08-2022 CT of upper limb wit hout contrast Dr. Elieser Brothers Work Phone: Start: 03-26-[address] Elieser Brothers Work Phone: Start: 04-04-2016 Septoplasty/submucou s resecj w/wo cartilage grf ELIESER BROTHERS DO Start: 04-04-2016 Tonsillectomy ELIESER TOLLIVER DO Start: 04-04-2015 Revision of knee arthroplasty ELIESER BROTHERS DO Start: 04-04-2013 Basal cell carcinoma (morphologic abnormality) ELIESER BROTHERS DO Comment on above: RFA Start: 04-26-2012 History of placement of stent for coronary artery disease History of coronary artery stent placement Lanre Padilla DO Work Phone: Start: 04-04-2012 Stent, device (physi kaylah object) ELIESER BROTHERS DO Start: 04-04-2002 Brachytherapy ELIESER TOLLIVER DO Start: 03-13-2001 CONVERTED SURGICAL PATHOLOGY Muriel Larry Work Phone: History of placement of stent for coronary artery disease History of coronary artery stent placement( Confirmed ) ELIESER BROTHERS DO History of placement of stent for coronary artery disease History of coronary artery stent placement Lanre Padilla Emefcy Work Phone: History of placement of stent for coronary artery disease History of coronary artery stent placement Lanre Padilla DO Work Phone: History of placement of stent for coronary artery disease History of coronary artery stent placement Lanre Padilla DO Work Phone: Lumbar (qualifier value) DR GARY GARZON MD Comment on above: SURGERY Nasal Screen MRSA/MSSA Dr. Celeste Brothers Work Phone: Operation on shoulde r joint ELIESER SHERWOODY DO Comment on above: spur removed Plan of Treatment Date Care Activity Detail Author Start: 02-25-2025 End: 02-25-2025 Patient encounter procedure 02/25/2025 1:15 PM EST Office Visit [facility] [address] [place] [address] Lanre Padilla DO [facility] [place] [address] [place], [place] [id number] 1 year follow up, hx of HTN. [facility] Comment on above: 1 year follow up, hx of HTN. Start: 12-04-2023 Covid-19 Vaccine ( season) Covid-19 Vaccine () [facility] Start: 12-04-2023 Influenza vaccination Influenza Vacc ine (#1) [facility] Start: 04-04-2023 Advance Directive Discussion Advance Directive Discussion [facility] Start: 12-03-2022 Covid-19 Vaccine ( season) Covid-19 Vaccine ( season) [facility] Start: 12-03-2022 Influenza vaccination Influenza Vacc ine (#1) [facility] Start: [facility]-07-[facility]22 [facility] Start: 05-06-2022 Following clinical pathway protocol [facility] Start: 05-06-2022 Following clinical pathway protocol [facility] Start: 05-06-2022 Admission procedure [facility] Start: 05-06-2022 Ambulation therapy management [facility] Start: 05-06-2022 Application of device [facility] Start: 05-06-2022 Assessment of risk o f venous thromboembolism [facility] Start: 05-06-2022 Catheterization of vein [facility] Start: 05-06-2022 Following clinical pathway protocol [facility] Start: 05-06-2022 Incentive spirometry [facility] Start: 05-06-2022 Introduction of urin charanjit catheter [facility] Start: 05-06-2022 Measuring intake and output [facility] Start: 05-06-2022 Neurovascular assessment [facility] Start: 05-06-2022 Patient education [facility] Start: 05-06-2022 Procedure discontinued [facility] Start: 05-06-2022 Provision of activit y privileges [facility] Start: 05-06-2022 Referral to occupati onal therapist [facility] Start: 05-06-2022 Vital signs measurements [facility] Start: 05-06-2022 Wound care [facility] Start: 05-06-2022 [facility] Start: 05-06-2022 Medication education [facility] Start: 04-04-2022 Advance Directive Discussion Advance Directive Discussion [facility] Start: 04-04-2022 Depression Assessment Depression Ass essment [facility] Start: 12-03-2021 Influenza vaccination INFLUENZA (#1) [facility] Start: 04-04-2021 ADVANCE DIRECTIVE DISCUSSION ADVANCE DIRECTIVE DISCUSSION [facility] Start: 04-04-2021 DEPRESSION ASSESSMENT DEPRESSION ASS ESSMENT [facility] Start: 11-20-2020 COVID-19 VACCINE (3 - Booster for Moderna series) COVID-19 VACCINE (3 - Booster for Moderna series) [facility] Start: 12-04-2019 Influenza vaccination INFLUENZA (#1) [facility] Start: 2015 RSV Vaccine (1 - 1-d ose 75+ series) RSV Vaccine (1 - 1-dose 75+ series) [facility] Start: 04-23-2009 Pneumococcal Vaccine : 65+ (2 - PCV) Pneumococcal Vaccine: 65+ (2 - PCV) [facility] Start: 04-23-2009 Pneumococcal Vaccine : 65+ (2 of 2 - PCV) Pneumococcal Vaccine: 65+ (2 of 2 - PCV) [facility] Start: 2005 ADVANCE DIRECTIVE DISCUSSION ADVANCE DIRECTIVE DISCUSSION [facility] Start: 2005 PNEUMOCOCCAL: 65+ (1 - PCV) PNEUMOCOCCAL: 65+ (1 - PCV) [facility] Start: 2005 PNEUMOVAX AGE 65 AND OVER WITH 5YR LOOKBACK (#1) PNEUMOVAX AGE 65 AND OVER WITH 5YR LOOKBACK (#1) [facility] Start: 2000 RSV Vaccine (1 - 1-d ose 60+ series) RSV Vaccine (1 - 1-dose 60+ series) [facility] Start: 1990 SHINGRIX VACCINE (1 of 2) OLIVIER GRIX VACCINE (1 of 2) [facility] Start: 1990 Tuberculosis screening COLOREC CANDE CANCER SCREENING,SEE MODIFIER [facility] Start: 1985 DIABETES SCREEN DIABETES SCREEN [facility] Start: 1985 Diabetes Screening Diabetes Screenin g [facility] Start: 1975 LIPID SCREEN LIPID SCREEN [facility] Start: 1959 Urine microalbumin profile [facility] Start: 1958 Anxiety Screening Anxiety Screening [facility] Start: 1958 Depression Screening Depression Scre ening [facility] Start: 1958 Hepatitis B surface antibody level LDL CHOLESTEROL [facility] ECG COMPLETE ECG COMPLETE ECG Routine Essential hypertension, benign 02/24/2022 2:10 PM EST [facility] Work Phone: ECG COMPLETE ECG COMPLETE ECG Routine Essential hypertension, benign 02/14/2023 2:18 PM EST [facility] Work Phone: ECG COMPLETE ECG COMPLETE ECG Routine Essential hypertension, benign 02/15/2024 2:26 PM EST [facility] Work Phone: Patient Education RAD RN Myelogram [facility] Work Phone: Patient referral [facility] Work Phone: [facility] Immunizations Immunization Date Immunization Notes Care Provider Gerry li 09-25-2020 COVID-19, mRNA, LNP- S, PF, 100 mcg/ 0.5 mL dose; Translations: [Moderna COVID-19 Vaccine] ELIESER BROTHERS DO [facility] 08-28-2020 COVID-19, mRNA, LNP- S, PF, 100 mcg/ 0.5 mL dose; Translations: [Moderna COVID-19 Vaccine] ELIESER BROTHERS DO [facility] 07-17-2008 hepatitis B vaccine, adult dosage Dr. Elieser Brothers Work Phone: [facility] 04-23-2008 pneumococcal polysaccharide vaccine, [address] Elieser Brothers Work Phone: [facility] 04-08-2008 hepatitis B vaccine, adult dosage Dr. Elieser Brothers Work Phone: [facility] 01-05-2008 hepatitis B vaccine, adult dosage Dr. Elieser Brothers Work Phone: [facility] 04-06-2007 hepatitis B vaccine, adult dosage Dr. Elieser Brothers Work Phone: [facility] Payers Date Payer Category Payer Self-pay [id number] 2020 Unknown 2019 Medicare [employer] [place] [id number] 2019-Present [phone] [address] [place] [address] O [id number] 2019 Medicare [id number] 1940 Unknown [id number] 1940 Unknown [id number] 1940 Unknown [id number] 1940 Unknown [id number] 1940 Unknown [id number] Unknown [id number] Unknown [id number] Unknown [id number] Unknown [id number] Social History Date Type Detail Facility [facility] Start: 1940 Sex Assigned At Not on file [facility] Start: 12-19-2019 End: 03-03-2020 Never smoked tobacco (finding) [facility] Start: 1940 Sex Assigned At Male A [facility] Start: 03-03-2020 Tobacco use and exposure Smoke less tobacco non-user [facility] Start: 02-24-2022 End: 02-15-2024 Alcohol intake Ex-drinker (finding) [facility] Start: 02-14-2022 End: 02-24-2022 Exposure to SARS-CoV-2 (event) Not sure [facility] Start: 02-16-2022 End: 04-21-2022 Tobacco smoking status LAIS Unknown if ever smoked [facility] Start: 04-30-2015 Occasional [facility] Start: 04-30-2015 None [facility] Start: 04-30-2015 Spouse/ Signif icant Other [facility] Start: 04-30-2015 Non-smoker [facility] Start: 02-14-2023 End: 02-15-2024 History of Social function [facility] Start: 02-14-2023 End: 02-15-2024 Tobacco use panel [facility] National Score (1-10 0), lower number is lower risk [address] [facility] Sexual Orientation Maliha Bambi hitchcock [facility] Start: 09-27-2018 Sex Male (finding) [facility] Medical Equipment Procedure Code Equipment Code Equipment Origin al Text Equipment Identifier Dates GLENOID PRESS FI T SHORT POST FDA Start: 05-06-2022 SCREW FDA Start: 05-06-2022 Polyethylene rev erse shoulder prosthesis cup [id number] FDA Start: 05-06-2022 Polyethylene rev erse shoulder prosthesis cup [id number] FDA Start: 05-06-2022 Reverse shoulder prosthesis head [id number] FDA Start: 05-06-2022 Reverse shoulder prosthesis base plate ()[id number] FDA Start: 05-06-2022 See Instructions , Dispense glucose test strips, #100, use 1 strip daily as directed to test blood sugars. Diagnosis: E11.9, # 100 EA, 3 Refill(s), Pharmacy: [facility] #[id number], Type 2 diabetes mellitus, 180.5, cm, 06/21/23 8:33:00 EDT, Height, 109.9, kg, 06/21/23 8:33:00 EDT, Dosing Weight Start: 06-21-2023 See Instructions , Dispense ultrafine lancets, #100, use 1 lancet as directed daily to test blood sugar. Diagnosis: E11.9, # 100 EA, 3 Refill(s), Pharmacy: [facility] #[id number], Type 2 diabetes mellitus, 180.5, cm, 06/21/23 8:33:00 EDT, Height, 109.9, kg, 06/21/23 8:33:00 EDT, Dosing Weight Start: 06-21-2023 Goals Date Patient Goal Desired Activity /State Personal health goal Functional Status Date Assessment Result Facility 05-07-2022 Functional status Chair [facility] Work Phone: 03-22-2022 Functional Status Maintained [place] [facility] 10-02-2021 Functional Status Home Living Ad ditional Information OBJECTIVE BP: 134/73 Posture: forward head Transfers: marked use of LEs at chair Sensation: no abnomralities or asymmetries with light touch at eval AROM: UE WNL Curing Room Worker Strength: R 65lbs, L 55lbs 5x STS: no hands, but pt uses legs at chair - 21 seconds Activities-specific Balance Confidence Scale: 58% m-cstib: avg 2.58 with 23% impairment 1. Spontaneous Nystagmus: neg 2. End-range Nystagmus - neg 3. Smooth Pursuits = neg 4. Convergence = neg 5. Divergence = neg 6. Saccades/Skew Eye Deviation = neg 7. Head Thrust Test/Head Impulse Test (passive VOR): pos R ear hypofunction [facility] Mental Status Date Assessment Result Facility 01-25-2023 Cognitive function Awake;Alert;Appropriat e [facility] Work Phone: 05-07-2022 Cognitive function Level Of Cons ciousness Awake;Alert;Appropriate;Follow s Commands [facility] Work Phone: 05-07-2022 Cognitive function Voice/Name [facility] Work Phone: 03-22-2022 Mental Status Oriented x 4 [facility] 09-22-2021 Mental Status Orientation Asse ssment Oriented x 4 [facility] Clinical Notes 02-24-2022 to 04-10-2024 Note Date & Type Note Facility 04-10-2024 Note Exam Date Time Procedure Performing Provider Status 04/10/24 10:09 AM XR Chest 2 Views PRIYA BONILLA MD; [facility] (Verified) [id number] ORIGINAL HISTORY: Cough COMPARISON: No FINDINGS: The lungs and pleural spaces are clear. The cardiac silhouette is within normal limits. The pulmonary vasculature is within normal limits. IMPRESSION: Clear lungs. Interpreted by: Priya Bonilla MD Preliminary Report By: Priya Bonilla MD Electronically signed By Priya Bonilla MD Dictated Date: 04/10/2024 10:26:24 AM Prelim Date: 04/10/2024 10:26:50 AM Sign Date: 04/10/2024 10:26:50 AM Ordering Provider: [facility]11-13-2024 NoteHNO ID: [id number] Author: LANRE PADILLA, DO Service: ? Author Type: Physician Type: Progress Notes Filed: 02/16/2024 04:57 Note Text: Referring Provider: No ref. provider found Date: February 15, 2024 Chief Complaint: Established Patient Follow-Up (1 year follow up, hx of HTN. ) HISTORY OF PRESENT ILLNESS: Kiara Haywood is a 83 year old male who presents for Established Patient Follow-Up (1 year follow up, hx of HTN. ). Patient known to have a stent placed 2012 to LAD. In 2018 in 2020 had a stress test. Ejection fraction 50%. No evidence of ischemia is noted. ALLERGIES No Known Allergies PAST MEDICAL HISTORY: PAST MEDICAL HISTORY Diagnosis Date Abnormal stress test Atypical chest pain CAD in [place] artery Edema of lower extremity History of coronary artery stent placement 04/26/2012 proximal LAD promus element stent History of stress test 05/31/2018 no evidence of ischemia or infarction EF 54% History of stress test 10/03/2013 small inferoapical scar no reversible ischemia EF 59% History of stress test 02/12/2021 normal exercise stress perfusion imaging normal LV systolic function EF 50% Hypertension Leg edema, right Mixed hyperlipidemia NELLY (obstructive sleep apnea) Prostate cancer (HCC) Right knee pain Snores PAST SURGICAL HISTORY Procedure Laterality Date ARTHRP KNE CONDYLEANDPLATU MEDIALANDLAT COMPARTMENTS Bilateral 04/2015 BACK SURGERY HX 2002 L5-6 microdecompression 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 NOSE SURGERY HX 08/2016 sinus cleaning and deviated septum repair PAST SURGICAL HISTORY OF 2002 bracky therapy- seed implant for prostate cancer PATIENT HAS A CORONARY ARTERY STENT 2013 PROSTATE BIOPSY 2002 PROSTATE BIOPSY 2001 SHOULDER SURGERY HX Left 2001 spur removal TONSILLECTOMY HX 03/2017 FAMILY HISTORY Problem Relation Age of Onset other (unknown COD) Mother 99 other (unknown COD) Father 92 No Known Problems Sister No Known Problems Brother No Known Problems Brother No Known Problems Brother SOCIAL HISTORY: Tobacco Use: Never Alcohol Use: Not Currently Drug Use: Not on file Employer And Job Title: None on file Years Of Education Completed: Not specified Marital Status: MEDICATIONS: Current Outpatient Medications Medication Sig Niacinamide 500 mg tablet Take 500 mg by mouth two times a day with meals. Vitamin E, dl, acetate, (VITAMIN E) 200 unit capsule twice daily. azelastine (ASTELIN) 0.1% nasal spray place 1 spray into each nostril twice a day levothyroxine (SYNTHROID) 100 mcg tablet Take 100 mcg by mouth once daily. gluc samayoa/chondro samayoa A/vit C/Mn (GLUCOSAMINE-CHONDROITIN COMPLX ORAL) Take by mouth twice daily. lycopene 10 mg cap Take by mouth once daily. Magnesium Oxide-Mg Amino Acid Chelate (MAGNESIUM) 300 mg cap Take by mouth once daily. Niacin 250 mg tablet Take 250 mg by mouth daily with breakfast. fish,bora,flax oils-om3,6,9no1 (OMEGA 3-6-9) 1,200 mg cap Take 2 capsules by mouth twice daily. coenzyme Q10 (COENZYME Q-10) 100 mg cap capsule Take 200 mg by mouth twice daily. Ascorbic Acid 1,000 mg tablet Take 4,000 mg by mouth two times a day. cholecalciferol (VITAMIN D3) 5,000 unit tab Take 5,000 Units by mouth twice daily. atorvastatin (LIPITOR) 40 mg tablet Take 40 mg by mouth once daily. (Patient not taking: Reported on 02/15/2024) No current facility-administered medications for this visit. I have personally reviewed the patients past medical history including social, family, surgical, diagnostics, and medications. REVIEW OF SYSTEMS: Review of Systems Constitutional: Negative for chills and fatigue. Respiratory: Negative for chest tightness and shortness of breath. Cardiovascular: Negative for chest pain, palpitations and leg swelling. Neurological: Negative for dizziness, syncope, weakness and light-headedness. Hematological: Bruises/bleeds easily. Psychiatric/Behavioral: Negative for confusion and hallucinations. Vitals: BP 132/84 (BP Site: Left Arm, BP Position: Sitting, BP Cuff Size: Regular Adult) Pulse 87 Ht 180.3 cm (5' 11) Wt 102.5 kg (225 lb 15.5 oz) BMI 31.52 kg/m? PHYSICAL EXAMINATION: BP 132/84 (BP Site: Left Arm, BP Position: Sitting, BP Cuff Size: Regular Adult) Pulse 87 Ht 180.3 cm (5' 11) Wt 102.5 kg (225 lb 15.5 oz) BMI 31.52 kg/m? Last 3 Encounter BP Readings: Date: BP: 02/14/2023 134/82 02/24/2022 152/90 02/02/2021 138/84 Last 3 Encounter Pulse Readings: Date: Pulse: 02/14/2023 74 02/24/2022 81 02/02/2021 82 Last 3 Encounter Wt Readings: Date: Wt: 02/14/2023 108.9 kg (240 lb 1.3 oz) 02/24/2022 108.9 kg (240 lb) 02/02/2021 104.8 kg (231 lb) Physical Exam Vitals reviewed. Constitutional: General: He is not in acute distress. Cardiovascular: Rate and Rhythm: Normal rate and regular rhythm. Pulses: Carotid pulses are 2+ on the right side and 2+ on the left side. R (more content not included)...[id number] History of Present illness Narrative* Lanre Padilla, - 02/15/2024 1:13 PM EST Images from the original note were not included. Referring Provider: No ref. provider found Date: February 15, 2024 Chief Complaint: Established Patient Follow-Up (1 year follow up, hx of HTN. ) HISTORY OF PRESENT ILLNESS: Kiara Haywood is a 83 year old male who presents for Established Patient Follow- Up (1 year follow up, hx of HTN. ). Patient known to have a stent placed 2013 to LAD. In 2018 in 2020 had a stress test. Ejection fraction 50%. No evidence of ischemia is noted. ALLERGIES No Known Allergies PAST MEDICAL HISTORY: PAST MEDICAL HISTORY Diagnosis Date Abnormal stress test Atypical chest pain CAD in [place] artery Edema of lower extremity History of coronary artery stent placement 04/26/2012 proximal LAD promus element stent History of stress test 05/31/2018 no evidence of ischemia or infarction EF 54% History of stress test 10/03/2013 small inferoapical scar no reversible ischemia EF 59% History of stress test 02/12/2021 normal exercise stress perfusion imaging normal LV systolic function EF 50% Hypertension Leg edema, right Mixed hyperlipidemia NELLY (obstructive sleep apnea) Prostate cancer (HCC) Right knee pain Snores PAST SURGICAL HISTORY Procedure Laterality Date ARTHRP KNE CONDYLE&PLATU MEDIAL&LAT COMPARTMENTS Bilateral 04/2015 BACK SURGERY HX 2002 L5-6 microdecompression 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 NOSE SURGERY HX 08/2016 sinus cleaning and deviated septum repair PAST SURGICAL HISTORY OF 2002 bracky therapy- seed implant for prostate cancer PATIENT HAS A CORONARY ARTERY STENT 2012 PROSTATE BIOPSY 2002 PROSTATE BIOPSY 2001 SHOULDER SURGERY HX Left 2001 spur removal TONSILLECTOMY HX 03/2017 FAMILY HISTORY Problem Relation Age of Onset other (unknown COD) Mother 99 other (unknown COD) Father 92 No Known Problems Sister No Known Problems Brother No Known Problems Brother No Known Problems Brother SOCIAL HISTORY: Tobacco Use: Never Alcohol Use: Not Currently Drug Use: Not on file Employer And Job Title: None on file Years Of Education Completed: Not specified Marital Status: MEDICATIONS: Current Outpatient Medications Medication Sig Niacinamide 500 mg tablet Take 500 mg by mouth two times a day with meals. Vitamin E, dl, acetate, (VITAMIN E) 200 unit capsule twice daily. azelastine (ASTELIN) 0.1% nasal spray place 1 spray into each nostril twice a day levothyroxine (SYNTHROID) 100 mcg tablet Take 100 mcg by mouth once daily. gluc samayoa/chondro samayoa A/vit C/Mn (GLUCOSAMINE-CHONDROITIN COMPLX ORAL) Take by mouth twice daily. lycopene 10 mg cap Take by mouth once daily. Magnesium Oxide-Mg Amino Acid Chelate (MAGNESIUM) 300 mg cap Take by mouth once daily. Niacin 250 mg tablet Take 250 mg by mouth daily with breakfast. fish,bora,flax oils-om3,6,9no1 (OMEGA 3-6-9) 1,200 mg cap Take 2 capsules by mouth twice daily. coenzyme Q10 (COENZYME Q-10) 100 mg cap capsule Take 200 mg by mouth twice daily. Ascorbic Acid 1,000 mg tablet Take 4,000 mg by mouth two times a day. cholecalciferol (VITAMIN D3) 5,000 unit tab Take 5,000 Units by mouth twice daily. atorvastatin (LIPITOR) 40 mg tablet Take 40 mg by mouth once daily. (Patient not taking: Reported on 02/15/2024) No current facility-administered medications for this visit. I have personally reviewed the patients past medical history including social, family, surgical, diagnostics, and medications. REVIEW OF SYSTEMS: Review of Systems Constitutional: Negative for chills and fatigue. Respiratory: Negative for chest tightness and shortness of breath. Cardiovascular: Negative for chest pain, palpitations and leg swelling. Neurological: Negative for dizziness, syncope, weakness and light-headedness. Hematological: Bruises/bleeds easily. Psychiatric/Behavioral: Negative for confusion and hallucinations. Vitals: BP 132/84 (BP Site: Left Arm, BP Position: Sitting, BP Cuff Size: Regular Adult) Pulse 87 Ht 180.3 cm (5' 11) Wt 102.5 kg (225 lb 15.5 oz) BMI 31.52 kg/m PHYSICAL EXAMINATION: BP 132/84 (BP Site: Left Arm, BP Position: Sitting, BP Cuff Size: Regular Adult) Pulse 87 Ht 180.3 cm (5' 11) Wt 102.5 kg (225 lb 15.5 oz) BMI 31.52 kg/m Last 3 Encounter BP Readings: Date: BP: 02/14/2023 134/82 02/24/2022 152/90 02/02/2021 138/84 Last 3 Encounter Pulse Readings: Date: Pulse: 02/14/2023 74 02/24/2022 81 02/02/2021 82 Last 3 Encounter Wt Readings: Date: Wt: 02/14/2023 108.9 kg (240 lb 1.3 oz) 02/24/2022 108.9 kg (240 lb) 02/02/2021 104.8 kg (231 lb) Physical Exam Vitals reviewed. Constitutional: General: He is not in acute distress. Cardiovascular: Rate and Rhythm: Normal rate and regular rhythm. Pulses: Carotid pulses are 2+ on the right side and 2+ on the left side. Radial pulses are 2+ on the right side and 2+ on the left side. Femoral pulses are 2+ on the right side and 2+ on the left side. Popliteal pulses are 2+ on the right side and 2+ on the left side. Dorsalis pedis pulses are 2+ on the right side and 2+ on the left side. Posterior tibial pulses are 2+ on the right side and 2+ on the left side. Heart sounds: Murmur heard. Systolic murmur is present with a grade of 2/6. Comments: PMI not displaced. 2nd heart sound loud. Pulmonary: Effort: Pulmonary effort is normal. Breath sounds: Normal breath sounds. Abdominal: General: Abdomen is flat. Bowel sounds are normal. Palpations: Abdomen is soft. Tenderness: There is no abdominal tenderness. Musculoskeletal: Right lower leg: No edema. Left lower leg: No edema. Skin: General: Skin is warm. Findings: No rash or wound. Neurological: Mental Status: He is alert and oriented to person, place, and time. Coordination: Coordination is intact. LABS: No results found for: GLUC, K, NA, CHLOR, CO2, CREAT, BUN, ANION, CA, TPROT, ALB, TBILI, ALKPHOS, AST, ALT No results found for: HB, HCT, WBC No results found for: CHOL, HDL, LDL, TG EKG: ASSESSMENT/PLAN: 1. Essential hypertension, benign - ICD9: 401.1, ICD10: I10 (primary diagnosis) Patient's blood pressure in the office today was recorded as 132/84. Target systolic BP 140 or lessand diastolic BP 90 or less. Continue current medications. - ECG COMPLETE the EKG today was abnormal. I was able to look at the prior EKG and compared to today's EKG looking for changes. In the pictorial format we went over the EKG demonstrating the intervals and timing of the intervals. We also described the complexes shape and format. Right bundle branchblock 2. Mixed hyperlipidemia - ICD9: 272.2, ICD10: E78.2 Patient is not taking any statin therapy. I have no blood work to look at lipid management. I highly encourage a repeat blood test - Counseled on healthy diet and regular exercise 3. CAD in [place] artery - ICD9: 414.01, ICD10: I25.10 Managed with stent therapy. Denies any angina tightness pressure has class I activity. 4. NELLY (obstructive sleep apnea) - ICD9: 327.23, ICD10: G47.33 Does not use CPAP. 6. History of stress test - ICD9: V15.89, ICD10: Z92.89 Done 02/12/2021 and showed normal exercise stress perfusion imaging normal LV systolic function EF 50% 7. Non-smoker - ICD9: V49.89, ICD10: Z78.9 Patient is a non-smoker. I, Dana Hart MA , scribing for Dr. Lanre Padilla, was present in the room during the examination Follow up in: [address] Padilla for hx of HTN. Prior to entering the room, I reviewed the last progress note including the diagnosis and plan of action. When available, I then reviewed the last heart catheterization, stress test, echocardiogram and EKG. I proceeded to review the medial therapy and any side effects the patient may have had in the past. I was able to look at the last several EKGs. A new EKG was performed today and an interetation was performed. I reviewed its interpretation with the family and compared it to the previous EKGsthat we have in the medical records. Changes were described to the patient. In a pictorial format; I described the TN and QRS intervals. This was to show the effects of antiarrhythmic therapy on the e lectrical system. I was able to look at the past several EKG's. A new EKG was performed today and interpretation was noted. I reviewed this interpretation with the patient, and the family when available, and compared it to the previous EKG's that we have in the medical record. Since my office visit was carried out with a scribe, while in the exam room I was able to devote one hundred percent of my time in rpre-ya-gczs conversation with the patient. I answered all the questions and explained the diagnosis of stent to the LAD placed in 2012. Now with stable angina. And hyperlipidemia. Greater that 51% of my time was spent with cxbd-lj-oymi conversation with the patient. I have discussed the recommended treatment, alternative therapies and other options in detail. I've discussed the best benefit and side effects of these recommended treatments. I've attempted to answer all the questions to the patient's satisfaction and understanding. With approval, we would recommend an pursuethe current therapy such as not interested in any statin therapy. Will continue same meds. After leaving the exam room, I went back into the patient's chart and coordinated care with my nurse ordering the proper testing and medicinal changes. Letter was performed with voice recognition algorithms and sent to the referring team. The chart was completed. Including the pre-exam, exam and post- exam, the total time spent in the patient's management was greater than 15 minutes I, Dr. Lanre Padilla, have reviewed and agree with the information in the medical record. Lanre Padilla DO documented [facility] Nurse Note* Dana Hart MA - 02/14/2023 1:18 PM EST Due to patient's initial blood pressure being greater than 140/90 during vital check, patient was given 5 minutes of rest and recheck was preformed. Dana Hart MA documented in this encounterMer[facility] History of Present illness Narrative* Lanre Padilla DO - 02/14/2023 12:58 PM EST Images from the original note were not included. Referring Provider: No ref. provider found Date: February 14, 2023 Chief Complaint: Established Patient Follow-Up (1 year follow up) HISTORY OF PRESENT ILLNESS: Kiara Haywood is a 82 year old male who presents for Established Patient Follow- Up (1 year follow up). ALLERGIES No Known Allergies PAST MEDICAL HISTORY: PAST MEDICAL HISTORY Diagnosis Date Abnormal stress test Atypical chest pain CAD in [place] artery Edema of lower extremity History of coronary artery stent placement 04/26/2012 proximal LAD promus element stent History of stress test 05/31/2018 no evidence of ischemia or infarction EF 54% History of stress test 10/03/2013 small inferoapical scar no reversible ischemia EF 59% History of stress test 02/12/2021 normal exercise stress perfusion imaging normal LV systolic function EF 50% Hypertension Leg edema, right Mixed hyperlipidemia NELLY (obstructive sleep apnea) Prostate cancer (HCC) Right knee pain Snores PAST SURGICAL HISTORY Procedure Laterality Date ARTHRP KNE CONDYLE&PLATU MEDIAL&LAT COMPARTMENTS Bilateral 04/2015 BACK SURGERY HX 2002 L5-6 microdecompression 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 NOSE SURGERY HX 08/2016 sinus cleaning and deviated septum repair PAST SURGICAL HISTORY OF 2002 bracky therapy- seed implant for prostate cancer PATIENT HAS A CORONARY ARTERY STENT 2012 PROSTATE BIOPSY 2002 PROSTATE BIOPSY 2001 SHOULDER SURGERY HX Left 2001 spur removal TONSILLECTOMY HX 03/2017 FAMILY HISTORY Problem Relation Age of Onset other (unknown COD) Mother 99 other (unknown COD) Father 92 No Known Problems Sister No Known Problems Brother No Known Problems Brother No Known Problems Brother SOCIAL HISTORY: Tobacco Use: Never Alcohol Use: Not Currently Drug Use: Not on file Employer And Job Title: None on file Years Of Education Completed: Not specified Marital Status: MEDICATIONS: Current Outpatient Medications Medication Sig Niacinamide 500 mg tablet Take 500 mg by mouth two times a day with meals. Vitamin E, dl, acetate, (VITAMIN E) 200 unit capsule twice daily. atorvastatin (LIPITOR) 40 mg tablet Take 40 mg by mouth once daily. azelastine (ASTELIN) 0.1% nasal spray place 1 spray into each nostril twice a day levothyroxine (SYNTHROID) 100 mcg tablet Take 100 mcg by mouth once daily. gluc samayoa/chondro samayoa A/vit C/Mn (GLUCOSAMINE-CHONDROITIN COMPLX ORAL) Take by mouth twice daily. lycopene 10 mg cap Take by mouth once daily. Magnesium Oxide-Mg Amino Acid Chelate (MAGNESIUM) 300 mg cap Take by mouth once daily. Niacin 250 mg tablet Take 250 mg by mouth daily with breakfast. fish,bora,flax oils-om3,6,9no1 (OMEGA 3-6-9) 1,200 mg cap Take 2 capsules by mouth twice daily. coenzyme Q10 (COENZYME Q-10) 100 mg cap capsule Take 200 mg by mouth twice daily. Ascorbic Acid 1,000 mg tablet Take 4,000 mg by mouth two times a day. cholecalciferol (VITAMIN D3) 5,000 unit tab Take 5,000 Units by mouth twice daily. celecoxib (CELEBREX) 100 mg capsule Take 100 mg by mouth once daily. (Patient not taking: Reported on 02/14/2023) No current facility-administered medications for this visit. I have personally reviewed the patients past medical history including social, family, surgical, diagnostics, and medications. REVIEW OF SYSTEMS: Review of Systems Constitutional: Negative for chills and fatigue. Respiratory: Positive for shortness of breath. Negative for chest tightness. Cardiovascular: Negative for chest pain, palpitations and leg swelling. Neurological: Positive for dizziness. Negative for syncope, weakness and light-headedness. Hematological: Does not bruise/bleed easily. Psychiatric/Behavioral: Negative for confusion and hallucinations. Vitals: BP 134/82 (BP Site: Left Arm, BP Position: Sitting, BP Cuff Size: Regular Adult) Pulse 74 Ht 180.3 cm (5' 11) Wt 108.9 kg (240 lb 1.3 oz) BMI 33.48 kg/m PHYSICAL EXAMINATION: BP 134/82 (BP Site: Left Arm, BP Position: Sitting, BP Cuff Size: Regular Adult) Pulse 74 Ht 180.3 cm (5' 11) Wt 108.9 kg (240 lb 1.3 oz) BMI 33.48 kg/m Last 3 Encounter BP Readings: Date: BP: 02/24/2022 152/90 02/02/2021 138/84 03/21/2020 140/90 Last 3 Encounter Pulse Readings: Date: Pulse: 02/24/2022 81 02/02/2021 82 03/21/2020 70 Last 3 Encounter Wt Readings: Date: Wt: 02/24/2022 108.9 kg (240 lb) 02/02/2021 104.8 kg (231 lb) 03/21/2020 109.8 kg (242 lb) Physical Exam Vitals reviewed. Constitutional: General: He is not in acute distress. Cardiovascular: Rate and Rhythm: Normal rate and regular rhythm. Pulses: Carotid pulses are 2+ on the right side and 2+ on the left side. Radial pulses are 2+ on the right side and 2+ on the left side. Femoral pulses are 2+ on the right side and 2+ on the left side. Popliteal pulses are 2+ on the right side and 2+ on the left side. Dorsalis pedis pulses are 2+ on the right side and 2+ on the left side. Posterior tibial pulses are 2+ on the right side and 2+ on the left side. Heart sounds: Murmur heard. Systolic murmur is present with a grade of 2/6. Comments: PMI not displaced. 2nd heart sound loud. Pulmonary: Effort: Pulmonary effort is normal. Breath sounds: Normal breath sounds. Abdominal: General: Abdomen is flat. Bowel sounds are normal. Palpations: Abdomen is soft. Tenderness: There is no abdominal tenderness. Musculoskeletal: Right lower leg: No edema. Left lower leg: No edema. Skin: General: Skin is warm. Findings: No rash or wound. Neurological: Mental Status: He is alert and oriented to person, place, and time. Coordination: Coordination is intact. LABS: No results found for: GLUC, K, NA, CHLOR, CO2, CREAT, BUN, ANION, CA, TPROT, ALB, TBILI, ALKPHOS, AST, ALT No results found for: HB, HCT, WBC No results found for: CHOL, HDL, LDL, TG EKG: ASSESSMENT/PLAN: 1. Essential hypertension, benign - ICD9: 401.1, ICD10: I10 (primary diagnosis) Patient's blood pressure in the office today was recorded as 134/82. Target systolic BP 140 or lessand diastolic BP 90 or less. Continue current medications. - ECG COMPLETE EKG is right bundle branch block 2. Mixed hyperlipidemia - ICD9: 272.2, ICD10: E78.2 Patient is currently taking Atorvastatin 40mg every day. - Counseled on healthy diet and regular exercise 3. NELLY (obstructive sleep apnea) - ICD9: 327.23, ICD10: G47.33 Faithful to CPAP. Abnormal EKG suggest right bundle branch block. This is seen with people with sleep apnea this is a chronic finding 4. History of coronary artery stent placement - ICD9: V45.82, ICD10: Z95.5 Done 04/26/2012 and showed proximal LAD promus element stent denies any angina. This is 10 years ago. 5. History of stress test - ICD9: V15.89, ICD10: Z92.89 Done 02/12/2021 and showed normal exercise stress perfusion imaging normal LV systolic function EF 50% 6. Non-smoker - ICD9: V49.89, ICD10: Z78.9 Patient is a non-smoker. -Patient is cleared for surgery from a cardiac standpoint. I, Dana Hart MA , scribing for Dr. Lanre Padilla, was present in the room during the examination Follow up in: [address] Padilla Prior to entering the room, I reviewed the last progress note including the diagnosis and plan of action. When available, I then reviewed the last heart catheterization, stress test, echocardiogram and EKG. I proceeded to review the medial therapy and any side effects the patient may have had in the past. I was able to look at the last several EKGs. A new EKG was performed today and an interetation was performed. I reviewed its interpretation with the family and compared it to the previous EKGsthat we have in the medical records. Changes were described to the patient. In a pictorial format; I described the TN and QRS intervals. This was to show the effects of antiarrhythmic therapy on the e lectrical system. I was able to look at the past several EKG's. A new EKG was performed today and interpretation was noted. I reviewed this interpretation with the patient, and the family when available, and compared it to the previous EKG's that we have in the medical record. Since my office visit was carried out with a scribe, while in the exam room I was able to devote one hundred percent of my time in edup-pb-dofy conversation with the patient. I answered all the questions and explained the diagnosis of stable angina after stent. Greater that 51% of my time was spent with rtuv-ox-ctuv conversation with the patient. I have discussed the recommended treatment, alternative therapies and other options in detail. I've discussed the best benefit and side effects of these recommended treatments. I've attempted to answer all the questions to the patient's satisfaction and understanding. With approval, we would recommend an pursuethe current therapy such as clear for surgery. After leaving the exam room, I went back into the patient's chart and coordinated care with my nurse ordering the proper testing and medicinal changes. Letter was performed with voice recognition algorithms and sent to the referring team. The chart was completed. Including the pre-exam, exam and post- exam, the total time spent in the patient's management was greater than 15 minutes I, Dr. Lanre Padilla, have reviewed and agree with the information in the medical record. Lanre Padilla DO documented in this encounter[facility]02-[facility]-[address] Gonzales [facility] May 07, 2022 7:31am Note Date/Time May 07, 2022 7 :31am [facility] Medical Records Department [address] [place] [address] Instructions for Home/Discharge Instructions 05/07/22 0731 MR#: [id number] Acct: [id number] Name: KIARA HAYWOOD Rep #:[id number] : 1940 82 From: Art terry DO PCP: Dr. Elieser Brothers DO Status:ADM PATRIA Discharge Instructions Follow Up Care Test Results: Test results from this visit will be discussed in further detail at your follow- up appointment, if applicable. Discharge Plan Admission Admit Date/Time: 05/06/22 18:15 Primary Reason for Your Visit: Right shoulder replacement Attending Provider: Art Gonzales Primary Care Provider: Elieser Brothers Instructions Additional Instructions / Restrictions: Follow preprinted instructions for surgeons office Discharge Orders/Prescriptions Prescriptions: New aspirin 81 mg Tablet,Delayed Release (Dr/Ec) 81 mg PO BID 28 Days Qty: 56 0RF sennosides-docusate sodium [Stool Softener-Stimulant Laxat] 8.6-50 mg Tablet 2 tab PO BID 7 Days Qty: 28 0RF oxycodone 5 mg Tablet 5 - 10 mg PO Q4H PRN PRN (Reason: Pain Score 4-10) 7 Days Qty: 42 0RF Continued ascorbic acid (vitamin C) 1,000 MG tablet 400 mg PO BID Label Comments: supplement vitamin E 200 UNIT capsule 200 unit PO DAILY Label Comments: supplement saw palmetto 160 MG capsule 900 mg PO DAILY Label Comments: supplement niacin 250 MG tablet extended release 250 mg PO DAILY Label Comments: CHOLESTEROL magnesium 250 MG tablet 300 mg PO DAILY Label Comments: supplement coenzyme Q10 100 MG capsule 200 mg PO BID Label Comments: supplement lycopene 10 MG capsule 20 mg PO DAILY cholecalciferol (vitamin D3) 1,000 UNIT tablet 4,000 unit PO BID Label Comments: supplement copper gluconate 2 MG capsule 2 mg PO DAILY Label Comments: supplements saw-vit E-sod brh-ekp-lsaq-pyg 1 EACH tablet 1 ea PO BID Label Comments: prostate glucosam-chondr msm6-manganese 1 EACH capsule 2 ea PO BID Label Comments: VINTAGEHUB ocgya-6q-dzj-epa-fish oil-D3 1 EACH capsule 2 ea PO BID Label Comments: supplement acetaminophen 500 MG tablet 1,000 mg PO Q8H PRN PRN (Reason: Pain) Qty: 90 0RF Label Comments: PAIN iron aspgl,ps complex-vit C-sa 150 MG capsule 150 mg PO DAILYCM Qty: 30 0RF Label Comments: IRON/VIT C SUPPLEMENT celecoxib 200 mg capsule 200 mg PO DAILY Label Comments: take 1 capsule by mouth once daily levothyroxine 100 mcg tablet 100 mcg PO DAILY Label Comments: take 1 tablet by mouth once daily pantoprazole 40 mg tablet,delayed release (DR/EC) 40 mg PO DAILY Label Comments: take 1 tablet by mouth once daily azelastine 137 mcg (0.1 %) aerosol,spray 1 spray INTRANASAL PRN PRN (Reason: ALLERGIES) Label Comments: instill 1 spray into each nostril twice a day turmeric 400 mg Capsule 500 mg PO BID Referrals / Follow Up: Art Gonzales DO [Med Staff - Active Staff] - Elieser Brothers DO [Primary Care Provider] - Disposition Disposition (needs filled in before D/C Order can be placed): Home, Self Care 05/07/22730<Electronically signed by Art Gonzales DO>Art Gonzales DO CC: Dr. Elieser Brothers DO ~ Signed [facility] Work Phone: 1(859) 710-375002-03-[address] Gonzales [facility] May 07, 2022 7:27am Note Date/Time May 07, 2022 7 :27am [facility] Medical Records Department [address] [place] [id number] Progress Note - Orthopedic 05/07/22724 MR#: [id number] Acct: [id number] Name: KIARA HAYWOOD Rep #:[id number] : 1940 82 From: Art terry DO PCP: Dr. Elieser Brothers DO Status:ADM PATRIA Location: [place] [address] Subjective Subjective Patient seen and examined. Pain controlled with current pain regimen. Denies fevers, chills, nausea or vomiting, chest pain or shortness of breath. Tolerating oral intake. Objective Data Objective Data Vital Signs: Vital Signs Temp Pulse Resp BP Pulse Ox O2 Del Method O2 Flow Rate 98.8 F 76 18 126/79 H 94 Room Air 2 05/07/22 06:38 05/07/22 06:38 05/07/22 06:38 05/07/22 06:38 05/07/22 06:38 05/07/22 06:38 05/07/22 02:45 Oxygen Flow Rate (L/min) 2 Oxygen Delivery Method Room Air Weight: 235 lb 14.314 oz Body Mass Index (BMI) 32.8 Intake & Output: Intake and Output for Last 24 Hours 05/05/22 05/06/22 05/07/22 23:59 23:59 23:59 Intake Total 1750 / 1750 850 / 850 Output Total 1000 / 1000 950 / 950 Balance 750 / 750 -100 / -100 Lab / Micro Data Result Diagrams: 05/07/22 06:05 05/07/22 06:05 Labs: Laboratory Results - last 24 hr 05/07/22 06:05: WBC 17.1 H, RBC 5.08, Hgb 15.9, Hct 46.2, MCV 90.9, MCH 31.3, MCHC 34.4, RDW Std Deviation 46.4 H, RDW Coeff of Nick 14.0, Plt Count 175, MPV 10.9 05/07/22 06:05: Sodium 140, Potassium 4.3, Chloride 107, Carbon Dioxide 24.0, Anion Gap 9, BUN 18, Creatinine 0.93, Estim Creat Clear Calc 65.22, Est GFR (MDRD) Af Amer 100, Est GFR (MDRD) Non-Af 83, BUN/Creatinine Ratio 19.3, [id number] H, Calcium 9.0 Micro: Microbiology 04/23/22 08:16 Swab (Method) Nasal Screen MRSA/MSSA - Final Radiography Diagnostic Testing: Radiology Impression Shoulder X-Ray 05/06/22 17:15 IMPRESSION: Successful total shoulder arthroplasty. Electronically Signed: Gallito Douglass MD at 17:50 EST Reading Location ID and State: [address] [place] [address] , Service support , Physical Exam Narrative General - A&Ox3, NAD. VSS/AF. Right upper Extremity - SILT & 5/5 in radial, ulnar, musculocutaneous, axillary, and median nerve distributions. Radial, ulnar pulses 2+. Compartmentssoft and compressible. BCR in finger tips. Incisional dressing C/D/I. Negative Homans' sign bilaterally Assessment & Plan Assessment/Plan (1) Post-op pain: PLAN: POD#1 s/p right reverse shoulder arthroplasty -Doing well this morning. Pain controlled. - Pain control - OT - DVT PPX -aspirin 81 mg twice daily, ORION [place], early mobilization -Plan for discharge home today after therapy goals are met 05/07/22 0727 <Electronically signed by Art Gonzales DO> Cosigner Signature (if applicable): CC: ~ Signed [facility] Work Phone: 1(837) 916-924302-02-2023 Procedure [facility] 03-22-2022 Evaluation + Plan noteExtracted from: Title:Clinical Document Author:GARY GARZON Date:03/22/22 [place] ADMISSION HISTORY AN D PHYSICIAL CHIEF COMPLAINT: HISTORY OF PRESENT ILLNESS: REVIEW OF SYSTEMS: ACTIVE PROBLEMS: (24) Allergic rhinitis (348157833) Arthritis, L5-6 (0515276) CAD in [place] artery (65646112) Cervical spine arthritis with nerve pain (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) Chronic back pain (915910521) Chronic pain of multiple sites (649171912) Dupuytren contracture of left palm (664092480404703) Dysphagia (67670696) Essential hypertension (05444132) Eye (289310468) GERD without esophagitis (1162482710) History of 2019 novel coronavirus disease (COVID-19) (835167536) History of coronary artery stent placement (1592903985) History of prostate cancer (6012958206) Hyperlipemia (37115114) Hypothyroid (51214987) Incomplete emptying of bladder (234571048) Osteoarthritis of right shoulder (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) Pain of right shoulder region (28527394) Polio, history of (5431617100) 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 Weights display the last 5 within 7 days. Initial Wt: 03/22 109.0 kg 240 lb Current Wt: 03/22 109.0 kg 240 lb GENERAL: HEENT: CARDIOVASCULAR: RESPIRATORY: ABDOMEN: EXREMETIES: NEUROLOGICAL: PSYCHIATRIC: LABS: No 36hr Lab Data DIAGNOSTICS: IMPRESSION: PLAN: History and Physical Update I have examined the patient; reviewed the H&P and there are no changes to the H&P unless noted below. Future Appointments Appointment Date:09/01/2022 08:00:00 AM Scheduled Provider:ELIESER BROTHERS DO Location:[facility] Appointment Type:PC OV Future Scheduled Tests Laboratory* [facility] 02/18/22 Radiology* CT Spine Cervical w/ Contrast 03/08/22 [facility] 12-19-2022 Hospital Discharge instructions Patient Education 03/22/2022 11:02:16 9 - AO Minor Esophagogastroduodenoscopy (06/15) (CUSTOM) Esophagogastroduodenoscopy This is an endoscopic procedure (a procedure that uses a device like a flexible telescope) that allows your caregiver to view the upper stomach and small bowel. This test allows your caregiver to look at the esophagus. The esophagus carries food from your mouth to your stomach. They can also look at your duodenum. This is the first part of the small intestine that attaches to the stomach. This test is used to detect problems in the bowel such as ulcers and inflammation. MEANING OF TEST Your caregiver will go over the test results with you and discuss the importance and meaning of your results, as well as treatment options and the need for additional tests if necessary. OBTAINING THE TEST RESULTS Your caregiver s office will call you with the results of the test. POST SEDATION INSTRUCTIONS Rest at home today. Since your coordination may be impaired, be cautious on stairways, do not drive any vehicle or operate any heavy machinery, or use any sharp instruments for the remainder of the day. Do not drink any alcoholic beverages or make any major decisions for 24 hours. POST PROCEDURE INSTRUCTIONS Progress slowly with full liquids then resume previous diet and medications. Belching or passing of gas is to be expected. Notify the physician if you have severe chest pain, fever, or if difficulty when swallowing persists. 06/12/13 Custom 03/22/2022 11:02:13 Nausea and Vomiting, Adult, Kvye-jl-Qckz Nausea and Vomiting, Adult Nausea is feeling sick to your stomach or feeling that you are about to throw up (vomit). Vomiting is when food in your stomach is thrown up and out of the mouth. Throwing up can make you feel weak. It can also make you lose too much water in your body (get dehydrated). If you lose too much water in your body, you may: Feel tired. Feel thirsty. Have a dry mouth. Have cracked lips. Go pee (urinate) less often. Older adults and people with other diseases or a weak body defense system (immune system) are at higher risk for losing too much water in the body. If you feel sick to your stomach and you throw up, it is important to follow instructions from your doctor about how to take care of yourself. Follow these instructions at home: Watch your symptoms for any changes. Tell your doctor about them. Follow these instructions to carefor yourself at home. Eating and drinking Take an ORS (oral rehydration solution). This is a drink that is sold at pharmacies and stores. Drink clear fluids in small amounts as you are able, such as: ?Water. ?Ice chips. ?Fruit juice that has water added (diluted fruit juice). ?Low-calorie sports drinks. Eat bland, yprr-ox-xiejgn foods in small amounts as you are able, such as: ?Bananas. ?Applesauce. ?Rice. ?Low-fat (lean) meats. ?Captain Cook. ?Crackers. Avoid drinking fluids that have a lot of sugar or caffeine in them. This includes energy drinks, sports drinks, and soda. Avoid alcohol. Avoid spicy or fatty foods. General instructions Take acki-lps-eanezjh and prescription medicines only as told by your doctor. Drink enough fluid to keep your pee (urine) pale yellow. Wash your hands often with soap and water. If you cannot use soap and water, use hand brand representative. Make sure that all people in your home wash their hands well and often. Rest at home while you get better. Watch your condition for any changes. Take slow and deep breaths when you feel sick to your stomach. Keep all follow-up visits as told by your doctor. This is important. Contact a doctor if: Your symptoms get worse. You have new symptoms. You have a fever. You cannot drink fluids without throwing up. You feel sick to your stomach for more than 2 days. You feel light-headed or dizzy. You have a headache. You have muscle cramps. You have a rash. You have pain while peeing. Get help right away if: You have pain in your chest, neck, arm, or jaw. You feel very weak or you pass out (faint). You throw up again and again. You have throw up that is bright red or looks like black coffee grounds. You have bloody or black poop (stools) or poop that looks like tar. You have a very bad headache, a stiff neck, or both. You have very bad pain, cramping, or bloating in your belly (abdomen). You have trouble breathing. You are breathing very quickly. Your heart is beating very quickly. Your skin feels cold and clammy. You feel confused. You have signs of losing too much water in your body, such as: ?Dark pee, very little pee, or no pee. ?Cracked lips. ?Dry mouth. ?Sunken eyes. ?Sleepiness. ?Weakness. These symptoms may be an emergency. Do not wait to see if the symptoms will go away. Get medical help right away. Call your local emergency services (911 in the [place] Do not drive yourself to the hospital. Summary Nausea is feeling sick to your stomach or feeling that you are about to throw up (vomit). Vomiting is when food in your stomach is thrown up and out of the mouth. Follow instructions from your doctor about eating and drinking to keep from losing too much water in your body. Take ucbs-jsr-tyncqvu and prescription medicines only as told by your doctor. Contact your doctor if your symptoms get worse or you have new symptoms. Keep all follow-up visits as told by your doctor. This is important. This information is not intended to replace advice given to you by your health care provider. Make sure you discuss any questions you have with your health care provider. Document Released: 09/06/2008 Document Revised: 07/13/2019 Document Reviewed: 08/29/2018 US HealthVest Patient Education 2020 [employer]. 03/22/2022 11:02:11 Monitored Anesthesia Care, Care After Monitored Anesthesia Care, Care After These instructions provide you with information about caring for yourself after your procedure. Your health care provider may also give you more specific instructions. Your treatment has been plannedaccording to current medical practices, but problems sometimes occur. Call your health care provider if you have any problems or questions after your procedure. What can I expect after the procedure? After your procedure, you may: Feel sleepy for several hours. Feel clumsy and have poor balance for several hours. Feel forgetful about what happened after the procedure. Have poor judgment for several hours. Feel nauseous or vomit. Have a sore throat if you had a breathing tube during the procedure. Follow these instructions at home: For at least 24 hours after the procedure: Have a responsible adult stay with you. It is important to have someone help care for you until youare awake and alert. Rest as needed. Do not: ?Participate in activities in which you could fall or become injured. ?Drive. ?Use heavy machinery. ?Drink alcohol. ?Take sleeping pills or medicines that cause drowsiness. ?Make important decisions or sign legal documents. ?Take care of children on your own. Eating and drinking Follow the diet that is recommended by your health care provider. If you vomit, drink water, juice, or soup when you can drink without vomiting. Make sure you have little or no nausea before eating solid foods. General instructions Take qbfx-ruw-czunfwn and prescription medicines only as told by your health care provider. If you have sleep apnea, surgery and certain medicines can increase your risk for breathing problems. Follow instructions from your health care provider about wearing your sleep device: ?Anytime you are sleeping, including during daytime naps. ?While taking prescription pain medicines, sleeping medicines, or medicines that make you drowsy. If you smoke, do not smoke without supervision. Keep all follow-up visits as told by your health care provider. This is important. Contact a health care provider if: You keep feeling nauseous or you keep vomiting. You feel light-headed. You develop a rash. You have a fever. Get help right away if: You have trouble breathing. Summary For several hours after your procedure, you may feel sleepy and have poor judgment. Have a responsible adult stay with you for at least 24 hours or until you are awake and alert. This information is not intended to replace advice given to you by your health care provider. Make sure you discuss any questions you have with your health care provider. Document Released: 07/11/2016 Document Revised: 06/19/2018 Document Reviewed: 07/11/2016 US HealthVest Patient Education 2020 [employer]. Follow Up Care 03/22/2022 10:04:55 With:GARY GARZON Address: [address] [place] [address]- [phone] Business (1) When: Unknown [facility] 12-19-2022 Summary of episode note Discharge Instructions Thank you for allowing [facility] to assist you with your healthcare needs. The following is importantdischarge information regarding your hospital visit. Your Care Team ELIESER BROTHERS DO, DR Your Diagnosis EGD What to do next Scheduled Follow-Up Appointments Appointment Type When With Where Contact InformationPC 09/01/2022 08:00 AM ELIESRE UREÑA DO [facility] Follow Up Appointments Follow Up with GARY GARZON When Where: [address] [address] [phone] [facility] (1) Allergies NKA Medications Please ask your primary doctor or pharmacist before taking any other medication not listed, including over the counter drugs, herbal medications, vitamins and or supplements as they may interact withyour home medications. What How Much When Why Instructions Last Dose Unchanged ascorbic acid (Vitamin C) Once a day Pt has 4000-4 per day on his list Unchanged azelastine nasal (azelastine 137 mcg/ inh (0.1%) nasal spray) 1 spray(s) Intranasal Two (2) times a day Duration: 90 Days Unchanged betamethasone-clotrimazole topical (betamethasone-clotrimazole 0.05%- 1% topical cream) 1 application Topical Two (2) times a day Tinea cruris Unchanged celecoxib (CeleBREX 200 mg oral capsule) 1 cap by mouth Once a day Cervical spine arthritis with nerve pain Chronic back pain Duration: 30 Days Unchanged cholecalciferol (Vitamin D3 5000 intl units (125 mcg) oral capsule) 1 cap by mouth Two (2) times a day Unchanged chondroitin-glucosamine (Chondroitin-Glucosamine oral tablet) 1 tab(s) Two (2) times a day 1500mg Unchanged herbal/ nutritional product (saw palmetto oral capsule) 1 cap by mouth Two (2) times a day 450 mg Unchanged ibuprofen (ibuprofen 200 mg oral tablet) 2 tab(s) by mouth Every 6 hours as needed for pain or fever Unchanged levothyroxine (levothyroxine 100 mcg (0.1 mg) oral tablet) 1 tab(s) by mouth Once a day Unchanged Misc Medication (Lycopene 10 mg) Every day Unchanged Misc Medication (Pt has Idoral 12.5 mg BID) Once daily Unchanged niacin (niacin 250 mg oral tablet) 1 tab(s) by mouth Every day Unchanged selenium (selenium 200 mcg oral tablet) 1 tab(s) by mouth Every day Please take this list to your next doctor s visit. Bring all medications you take, including over the counter medications, herbals and other supplements with you to your doctor s visit. Patients and families are reminded to discard old lists and to update any records with all medication providers or retail pharmacies. Education Materials Esophagogastroduodenoscopy This is an endoscopic procedure (a procedure that uses a device like a flexible telescope) that allows your caregiver to view the upper stomach and small bowel. This test allows your caregiver to look at the esophagus. The esophagus carries food from your mouth to your stomach. They can also look at your duodenum. This is the first part of the small intestine that attaches to the stomach. This test is used to detect problems in the bowel such as ulcers and inflammation. MEANING OF TEST Your caregiver will go over the test results with you and discuss the importance and meaning of your results, as well as treatment options and the need for additional tests if necessary. OBTAINING THE TEST RESULTS Your caregiver s office will call you with the results of the test. POST SEDATION INSTRUCTIONS Rest at home today. Since your coordination may be impaired, be cautious on stairways, do not drive any vehicle or operate any heavy machinery, or use any sharp instruments for the remainder of the day. Do not drink any alcoholic beverages or make any major decisions for 24 hours. POST PROCEDURE INSTRUCTIONS Progress slowly with full liquids then resume previous diet and medications. Belching or passing of gas is to be expected. Notify the physician if you have severe chest pain, fever, or if difficulty when swallowing persists. 06/12/13 Custom Nausea and Vomiting, Adult Nausea is feeling sick to your stomach or feeling that you are about to throw up (vomit). Vomiting is when food in your stomach is thrown up and out of the mouth. Throwing up can make you feel weak. It can also make you lose too much water in your body (get dehydrated). If you lose too much water in your body, you may: Feel tired. Feel thirsty. Have a dry mouth. Have cracked lips. Go pee (urinate) less often. Older adults and people with other diseases or a weak body defense system (immune system) are at higher risk for losing too much water in the body. If you feel sick to your stomach and you throw up, it is important to follow instructions from your doctor about how to take care of yourself. Follow these instructions at home: Watch your symptoms for any changes. Tell your doctor about them. Follow these instructions to carefor yourself at home. Eating and drinking Take an ORS (oral rehydration solution). This is a drink that is sold at pharmacies and stores. Drink clear fluids in small amounts as you are able, such as: ? Water. ? Ice chips. ? Fruit juice that has water added (diluted fruit juice). ? Low-calorie sports drinks. Eat bland, updn-ui-utymue foods in small amounts as you are able, such as: ? Bananas. ? Applesauce. ? Rice. ? Low-fat (lean) meats. ? Captain Cook. ? Crackers. Avoid drinking fluids that have a lot of sugar or caffeine in them. This includes energy drinks, sports drinks, and soda. Avoid alcohol. Avoid spicy or fatty foods. General instructions Take wewc-xwx-muzeekj and prescription medicines only as told by your doctor. Drink enough fluid to keep your pee (urine) pale yellow. Wash your hands often with soap and water. If you cannot use soap and water, use hand brand representative. Make sure that all people in your home wash their hands well and often. Rest at home while you get better. Watch your condition for any changes. Take slow and deep breaths when you feel sick to your stomach. Keep all follow-up visits as told by your doctor. This is important. Contact a doctor if: Your symptoms get worse. You have new symptoms. You have a fever. You cannot drink fluids without throwing up. You feel sick to your stomach for more than 2 days. You feel light-headed or dizzy. You have a headache. You have muscle cramps. You have a rash. You have pain while peeing. Get help right away if: You have pain in your chest, neck, arm, or jaw. You feel very weak or you pass out (faint). You throw up again and again. You have throw up that is bright red or looks like black coffee grounds. You have bloody or black poop (stools) or poop that looks like tar. You have a very bad headache, a stiff neck, or both. You have very bad pain, cramping, or bloating in your belly (abdomen). You have trouble breathing. You are breathing very quickly. Your heart is beating very quickly. Your skin feels cold and clammy. You feel confused. You have signs of losing too much water in your body, such as: ? Dark pee, very little pee, or no pee. ? Cracked lips. ? Dry mouth. ? Sunken eyes. ? Sleepiness. ? Weakness. These symptoms may be an emergency. Do not wait to see if the symptoms will go away. Get medical help right away. Call your local emergency services (911 in the [place] Do not drive yourself to the hospital. Summary Nausea is feeling sick to your stomach or feeling that you are about to throw up (vomit). Vomiting is when food in your stomach is thrown up and out of the mouth. Follow instructions from your doctor about eating and drinking to keep from losing too much water in your body. Take mitt-vyv-xlperie and prescription medicines only as told by your doctor. Contact your doctor if your symptoms get worse or you have new symptoms. Keep all follow-up visits as told by your doctor. This is important. This information is not intended to replace advice given to you by your health care provider. Make sure you discuss any questions you have with your health care provider. Document Released: 09/06/2008 Document Revised: 07/13/2019 Document Reviewed: 08/29/2018 Elsevier Patient Education 2020 Elsevier Inc. Monitored Anesthesia Care, Care After These instructions provide you with information about caring for yourself after your procedure. Your health care provider may also give you more specific instructions. Your treatment has been plannedaccording to current medical practices, but problems sometimes occur. Call your health care provider if you have any problems or questions after your procedure. What can I expect after the procedure? After your procedure, you may: Feel sleepy for several hours. Feel clumsy and have poor balance for several hours. Feel forgetful about what happened after the procedure. Have poor judgment for several hours. Feel nauseous or vomit. Have a sore throat if you had a breathing tube during the procedure. Follow these instructions at home: For at least 24 hours after the procedure: Have a responsible adult stay with you. It is important to have someone help care for you until youare awake and alert. Rest as needed. Do not: ? Participate in activities in which you could fall or become injured. ? Drive. ? Use heavy machinery. ? Drink alcohol. ? Take sleeping pills or medicines that cause drowsiness. ? Make important decisions or sign legal documents. ? Take care of children on your own. Eating and drinking Follow the diet that is recommended by your health care provider. If you vomit, drink water, juice, or soup when you can drink without vomiting. Make sure you have little or no nausea before eating solid foods. General instructions Take fvdr-tir-xlbelee and prescription medicines only as told by your health care provider. If you have sleep apnea, surgery and certain medicines can increase your risk for breathing problems. Follow instructions from your health care provider about wearing your sleep device: ? Anytime you are sleeping, including during daytime naps. ? While taking prescription pain medicines, sleeping medicines, or medicines that make you drowsy. If you smoke, do not smoke without supervision. Keep all follow-up visits as told by your health care provider. This is important. Contact a health care provider if: You keep feeling nauseous or you keep vomiting. You feel light-headed. You develop a rash. You have a fever. Get help right away if: You have trouble breathing. Summary For several hours after your procedure, you may feel sleepy and have poor judgment. Have a responsible adult stay with you for at least 24 hours or until you are awake and alert. This information is not intended to replace advice given to you by your health care provider. Make sure you discuss any questions you have with your health care provider. Document Released: 07/11/2016 Document Revised: 06/19/2018 Document Reviewed: 07/11/2016 Elsevier Patient Education 2020 US HealthVest Inc. Additional Information VACCINATE! IT SAVES LIVES! Members of the community who have not yet received the COVID-19 vaccine and would like to receive it can visit one of [facility] vaccine clinics. There are many vaccine clinic locations within the [facility]. For locations and available times, please visit https://gettheshot.coronavirus.[place].gov/. It is important to note that some COVID mobile vaccine clinics are held outdoors and may be canceled in rainy or stormy conditions. To learn more about pediatric vaccinations (ages 5-11), we invite you to visit the [facility] webpage. https://www.[employer]s.org/[email or web address]-Gwpky-Sydvoqgbnds-Mkllspqjoi-Imnyk-Rhk stions.htmlTo learn more about the COVID-19 vaccine, we invite you to visit the [employer] website for a list of frequently asked questions. [email or web address]-[email or web address]/xnmzy-Ofgtlwa-Sfqfhcocqs _[email or web address]-Questions.pdf [facility] Patient Portal Access Instructions: Stay connected with your healthcare team and access your personal medical information anytime with the [facility] Patient Portal.If you would like a full copy of your medical records, please contact the [facility] Medical Records Department, Tuesday through Tuesday between 8a.m. and 4:30p.m. Please follow the directions below to access the portal: 1.Access the email account you provided upon registration to the hospital.2.Look for an invitation email from [facility].3.Open the email and access the invitation link: Accept Invitation to [facility]4.Fill in the required mckeon to create your account. Sign into [email or web address] with your username and password that you created in the above steps to stay up to date. You can then view a summary of results, a summary of your visits, and the ability to download your summaries to your computer or send the information securely to a physician. Remember that your healthcare information is confidential, so carefully consider who you will allow to register on the [facility] Patient Portal for access to your information. You can also access the [facility] Patient Portal on the [employer] penelope. Simply click on Health Records under [employer] and then click on the [facility] logo. HOW TO SAFELY DISPOSE OF PRESCRIPTION MEDICATIONS Please use one of the following methods to safely dispose of your unused medications. 1.Use a drug disposal kit: the drug disposal pouch allows you to safely discard your old and unuseddrugs. Ask your nurse to give you one when you are discharged.2.Visit a local take-back location: Many local pharmacies and police departments have programs that collect old and unwanted prescriptiondrugs. Call your local pharmacy or go to http://Enjoyor.Tetra Tech/3A9Hq3s to find one close to you.3.Make use of household items: Use cat litter or old coffee grounds to dispose medications if other options arenot available. Mix your drugs with these household products, seal them in an airtight container andthrow it into the garbage. Call [facility]: [phone] to be sure your drugs can be disposed of in this way. Some medicines may require a different approach.4.Never flush your medications down the toilet. IF YOU HAVE BEEN PRESCRIBED AN OPIOID FOR PAIN If you have been prescribed an opioid (such as hydrocodone, oxycodone or morphine), it is critical to understand the possible side effects and risks of opioid pain medications. Even when taken as directed, opioids can have several side effects including: Tolerance, meaning you might need to take more of a medication for the same pain relief. Nausea, vomiting and/or constipation. Sleepiness, dizziness, dry mouth, confusion, depression or itching. Physical dependence, meaning you have withdrawal symptoms when a medication is stopped, can develop within a few days. KNOW YOUR RESPONSIBILITIES It is important to know exactly how much and how often to take the opioid pain medications you are prescribed. Never take opioids in higher amounts or more often than prescribed. Do not combine opioids with alcohol or other drugs that cause drowsiness, such as benzodiazepines, also known as benzos, including diazepam and alprazolam, muscle relaxants or sleep aids. Never sell or share prescription opioids. This is illegal. Store opioids in a secure place and out of reach of others (including children, family, friends and visitors). The last page of this document has been signed and retained as a CHART COPY. Signatures Patient Education Materials 9 - AO Minor Esophagogastroduodenoscopy (06/15) (CUSTOM) Nausea and Vomiting, Adult, Hueu-tt-Fzxm Monitored Anesthesia Care, Care After Medication Leaflets My discharge plan and instructions have been reviewed and explained to me and I,KIARA HAYWOOD understand my current condition and have read and understand these discharge instructions. I have received a written copy of the plan/instructions. If I have questions, I am aware that I should contact my doctor. Patient/Semaphore Operator Signature: Date/Time: Relationship to Patient: Witness Name/Signature: Date/Time: [facility]12-19-2022 Anesthesiology Consult note Patient: KIARA HAYWOOD Age: 81 years Sex: Male : 1940 Associated Diagnoses: None Author: MIKHAIL KEANE Assessment Postanesthesia assessment Vitals: Reviewed Results: Vital signs from flowsheet : Vital Signs(Date Range: 03/21/2022 0:00 EST - 03/22/2022 10:54 EST) . Mental status: at preoperative baseline. Respiratory function: lungs are clear to auscultation. Respiratory support: none. CV function: Normal rate. Cardiovascular support: none. Pain. Nausea status: denies nausea. Postoperative hydration status: within normal limits. Digitally Signed by MIKHAIL KEANE on 03/22/2022 10:55 AM [facility]12-19-2022 Note DENNEHOTSO ADMISSION HISTORY AND PHYSICIAL CHIEF COMPLAINT: HISTORY OF PRESENT ILLNESS: REVIEW OF SYSTEMS: ACTIVE PROBLEMS: (24) Allergic rhinitis (593060214) Arthritis, L5-6 (1060976) CAD in [place] artery (84939938) Cervical spine arthritis with nerve pain (9636273007) Chronic back pain (733856312) Chronic pain of multiple sites (816961034) Dupuytren contracture of left palm (364666997504128) Dysphagia (79385604) Essential hypertension (16755567) Eye (072484076) GERD without esophagitis (9515600560) History of 2019 novel coronavirus disease (COVID-19) (926280540) History of coronary artery stent placement (6366627117) History of prostate cancer (4829546725) Hyperlipemia (92576479) Hypothyroid (59201210) Incomplete emptying of bladder (155681402) Osteoarthritis of right shoulder (9919434535) Pain of right shoulder region (07737982) Polio, history of (2200239302) 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 Weights display the last 5 within 7 days. Initial Wt: 03/22 109.0 kg 240 lb Current Wt: 03/22 109.0 kg 240 lb GENERAL: HEENT: CARDIOVASCULAR: RESPIRATORY: ABDOMEN: EXREMETIES: NEUROLOGICAL: PSYCHIATRIC: LABS: No 36hr Lab Data DIAGNOSTICS: IMPRESSION: PLAN: History and Physical Update I have examined the patient; reviewed the H&P and there are no changes to the H&P unless noted below. Digitally Signed by GARY GARZON MD on 03/22/2022 10:46 AM [facility]12-19-2022 Anesthesiology Consult note Patient: KIARA HAYWOOD Age: 81 years Sex: Male : 1940 Associated Diagnoses: None Author: MIKHAIL KEANE Preoperative Information Time of last food or liquid consumption: 03/22/2022 00:00:00 Anesthesia history Patient's history: negative. Family's history: negative. Health Status Allergies: Allergic Reactions (Selected) NKA, Allergies (1) ActiveReaction NKANone Documented Current medications: (Selected) Inpatient Medications Ordered LR 1,000 mL: 50 mL/hr, Intravenous Prescriptions Prescribed CeleBREX 200 mg oral capsule: 200 mg, 1 cap(s), Oral, qDay, for 30 day(s), 30 cap(s), 1 Refill(s) azelastine 137 mcg/inh (0.1%) nasal spray: 1 spray(s), Intranasal, BID, for 90 day(s), 3 EA, 3 Refill(s) betamethasone-clotrimazole 0.05%-1% topical cream: 1 penelope, Topical, BID, 45 gram(s), 1 Refill(s) levothyroxine 100 mcg (0.1 mg) oral tablet: 100 mcg, 1 tab(s), Oral, qDay, 90 tab(s), 3 Refill(s) Documented Medications Documented Chondroitin-Glucosamine oral tablet: 1 tab(s), BID, 1500mg, 0 Refill(s) Lycopene 10 mg: Daily, 0 Refill(s) Pt has Idoral 12.5 mg BID: Once daily, 0 Refill(s) Vitamin C: qDay, Pt has 4000-4 per day on his list, 0 Refill(s) Vitamin D3 5000 intl units (125 mcg) oral capsule: 5,000 International_Unit, 1 cap(s), Oral, BID, 100 cap(s), 0 Refill(s) ibuprofen 200 mg oral tablet: 400 mg, 2 tab(s), Oral, q6hr, PRN: pain or fever, 0 Refill(s) niacin 250 mg oral tablet: 250 mg, 1 tab(s), Oral, Daily, 0 Refill(s) saw melissao oral capsule: 1 cap(s), Oral, BID, 450 mg, 0 Refill(s) selenium 200 mcg oral tablet: 200 mcg, 1 tab(s), Oral, Daily, 30 tab(s), 0 Refill(s), Medications (1) Active Scheduled: (0) Continuous: (1) Lactated Ringers 1,000 mL 1,000 mL, Intravenous, 50 mL/hr PRN: (0) Problem list: Medical Allergic rhinitis / SNOMED CT 140607099 / Confirmed Arthritis, 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 / SNOMED CT 6157544 / Confirmed Cervical spine arthritis with nerve pain / SNOMED CT 4694283481 / Confirmed Chronic back pain / SNOMED CT 461239977 / Confirmed Chronic pain of multiple sites / SNOMED CT 362685950 / Confirmed CAD in [place] artery / SNOMED CT 02835368 / Confirmed Dupuytren contracture of left palm / SNOMED CT 342516091616808 / Confirmed Dysphagia / SNOMED CT 74169342 / Confirmed Essential hypertension / SNOMED CT 58857029 / Confirmed Eye / SNOMED CT 365002826 / Confirmed GERD without esophagitis / SNOMED CT 6048775997 / Confirmed History of 2019 novel coronavirus disease (COVID-19) / SNOMED CT 349912278 / Confirmed History of prostate cancer / SNOMED CT 1890867064 / Confirmed History of coronary artery stent placement / SNOMED CT 0748540897 / Confirmed Hyperlipemia / SNOMED CT 61399581 / Confirmed Hypothyroid / SNOMED CT 62301586 / Confirmed Incomplete emptying of bladder / SNOMED CT 623033972 / Confirmed Post-polio muscle weakness / SNOMED CT 00954189 / Confirmed Osteoarthritis of right shoulder / SNOMED CT 0391447156 / Confirmed Pre-op exam / SNOMED CT 742162407 / Confirmed Polio, history of / SNOMED CT 0948341535 / Confirmed Prediabetes / SNOMED CT 6062465218 / Confirmed Pain of right shoulder region / SNOMED CT 25284236 / Confirmed Tinea cruris / SNOMED CT 4094658623 / Confirmed, Active Problems (24) Allergic rhinitis Arthritis, 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 Upper respiratory infection (44336336): Resolved., CAD, stent Family History: Diabetes Brother Procedure history: Tonsillectomy (410560244) in 2017 at 77 Years. Septoplasty or submucous resection, with or without cartilage scoring, contouring or replacement with graft (57132) in 2017 at 77 Years. Knee reoperations, nuris replacements (026588596) in 2015 at 76 Years. Basal cell carcinoma removed (5091615) in 2013 at 74 Years. Comments: 09/26/2019 8:15 Rosalinda Taylor LPN RFA Stent, L artery (972703122) in 2012 at 73 Years. Brachytherapy (679382681) in 2002 at 63 Years. Operation on shoulder joint, spur (7079425733). Comments: 09/26/2019 8:13 Rosalinda Taylor LPN spur removed Lumbar (708625607). Comments: 03/22/2022 10:34 [facility] History Social & Psychosocial Habits Alcohol 06/04/2019 Use: Never Employment/School 02/27/2020 Status: Employed Substance Abuse 02/18/2022 Use: Current Type: Marijuana Tobacco 12/19/2019 Tobacco Use: Never (less than 100 in l Exposure to Tobacco Smoke Lives in non-smoking home Exercise Comment: none - 02/27/2020 09:05 Rose Acosta LPN Home/Environment 09/26/2019 Primary [employer]: Self Nutrition/Health 09/26/2019 Caffeine intake amount: A lot of tea, occ coffee . Physical Examination No qualifying data available General: Alert and oriented. Airway: Normal temporomandibular joint mobility. Mallampati classification: III (soft palate, base of uvula visible). Head: Normocephalic. Dentition Evaluation: Intact. Neck: Supple. Respiratory: Lungs are clear to auscultation. Cardiovascular: Normal rate. Heart Sounds: Normal. Gastrointestinal: Soft. Musculoskeletal Normal range of motion. Integumentary: Intact. Neurologic: Alert. Review / Management Results review: No qualifying data available . Assessment and Plan [place] [employer] Anesthesiologists (ASA) physical status classification: Class III. Anesthetic Preoperative Plan Premedication: None. Anesthetic technique: MAC. Induction: intravenously. Postoperative pain management: Per surgeon. Risks discussed: nausea, vomiting, headache, sore throat, dental injury, hypotension, allergic reaction, serious complications. Informed consent: signed by patient. Digitally Signed by MIKHAIL KEANE on 03/22/2022 10:38 AM [facility]11-23-2022 NoteHNO ID: [id number] Author: Lanre Padilla DO Service: ? Author Type: Physician Type: Progress Notes Filed: 02/27/2022 4:58 AM Note Text: Referring Provider: Lanre Padilla DO Date: February 24, 2022 Chief Complaint: Established Patient Follow-Up HISTORY OF PRESENT ILLNESS: Kiara Haywood is a 81 year old male who presents for Established Patient Follow-Up. ALLERGIES No Known Allergies PAST MEDICAL HISTORY: PAST MEDICAL HISTORY Diagnosis Date Abnormal stress test Atypical chest pain CAD in [place] artery Edema of lower extremity History of coronary artery stent placement 04/26/2012 proximal LAD promus element stent History of stress test 05/31/2018 no evidence of ischemia or infarction EF 54% History of stress test 10/03/2013 small inferoapical scar no reversible ischemia EF 59% History of stress test 02/12/2021 normal exercise stress perfusion imaging normal LV systolic function EF 50% Hypertension Leg edema, right Mixed hyperlipidemia NELLY (obstructive sleep apnea) Prostate cancer (HCC) Right knee pain Snores PAST SURGICAL HISTORY Procedure Laterality Date ARTHRP KNE CONDYLEANDPLATU MEDIALANDLAT COMPARTMENTS Bilateral 04/2015 BACK SURGERY HX 2002 L5-6 microdecompression 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 NOSE SURGERY HX 08/2016 sinus cleaning and deviated septum repair PAST SURGICAL HISTORY OF 2002 bracky therapy- seed implant for prostate cancer PATIENT HAS A CORONARY ARTERY STENT 2012 PROSTATE BIOPSY 2002 PROSTATE BIOPSY 2001 SHOULDER SURGERY HX Left 2001 spur removal TONSILLECTOMY HX 03/2017 FAMILY HISTORY Problem Relation Age of Onset other (unknown COD) Mother 99 other (unknown COD) Father 92 No Known Problems Sister No Known Problems Brother No Known Problems Brother No Known Problems Brother SOCIAL HISTORY: Tobacco Use: Never Alcohol Use: Not Currently Drug Use: Not on file Employer And Job Title: None on file Years Of Education Completed: Not specified Marital Status: MEDICATIONS: Current Outpatient Medications Medication Sig celecoxib (CELEBREX) 100 mg capsule Take 100 mg by mouth once daily. Vitamin E, dl, acetate, (VITAMIN E) 200 unit capsule twice daily. atorvastatin (LIPITOR) 40 mg tablet Take 40 mg by mouth once daily. azelastine (ASTELIN) 0.1% nasal spray place 1 spray into each nostril twice a day levothyroxine (SYNTHROID) 88 mcg tablet Take 88 mcg by mouth once daily. gluc samayoa/chondro samayoa A/vit C/Mn (GLUCOSAMINE-CHONDROITIN COMPLX ORAL) Take by mouth twice daily. lycopene 10 mg cap Take by mouth once daily. Magnesium Oxide-Mg Amino Acid Chelate (MAGNESIUM) 300 mg cap Take by mouth once daily. Niacin 250 mg tablet Take 250 mg by mouth daily with breakfast. fish,bora,flax oils-om3,6,9no1 (OMEGA 3-6-9) 1,200 mg cap Take 2 capsules by mouth twice daily. coenzyme Q10 (COENZYME Q-10) 100 mg cap capsule Take 200 mg by mouth twice daily. Ascorbic Acid 1,000 mg tablet Take 2,000 mg by mouth twice daily. cholecalciferol (VITAMIN D3) 5,000 unit tab Take 5,000 Units by mouth twice daily. No current facility-administered medications for this visit. I have personally reviewed the patients past medical history including social, family, surgical, diagnostics, and medications. REVIEW OF SYSTEMS: Review of Systems Constitutional: Negative for chills and fatigue. Respiratory: Negative for chest tightness and shortness of breath. Cardiovascular: Negative for chest pain, palpitations and leg swelling. Neurological: Negative for dizziness, syncope, weakness and light-headedness. Hematological: Does not bruise/bleed easily. Psychiatric/Behavioral: Negative for confusion and hallucinations. Vitals: BP 152/90 (BP Site: Left Arm, BP Position: Sitting) Pulse 81 Ht 180.3 cm (5' 11) Wt 108.9 kg (240 lb) BMI 33.47 kg/m? PHYSICAL EXAMINATION: BP 152/90 (BP Site: Left Arm, BP Position: Sitting) Pulse 81 Ht 180.3 cm (5' 11) Wt 108.9 kg (240 lb) BMI 33.47 kg/m? Last 3 Encounter BP Readings: Date: BP: 02/24/2022 152/90 02/02/2021 138/84 03/21/2020 140/90 Last 3 Encounter Pulse Readings: Date: Pulse: 02/24/2022 81 02/02/2021 82 03/21/2020 70 Last 3 Encounter Wt Readings: Date: Wt: 02/24/2022 108.9 kg (240 lb) 02/02/2021 104.8 kg (231 lb) 03/21/2020 109.8 kg (242 lb) Physical Exam Vitals reviewed. Constitutional: General: He is not in acute distress. Appearance: Normal appearance. HENT: Head: Normocephalic. Right Ear: External ear normal. Left Ear: External ear normal. Nose: Nose normal. Mouth/Throat: Mouth: Mucous membranes are moist. Eyes: Extraocular Movements: Extraocular movements intact. Cardiovascular: Rate and Rhythm: Normal rate and regular rhythm. Pulses: Normal pulses. Carotid pulses are 2+ on the right side and 2+ on the left side. Radial pulses are 2+ on the right side and 2+ on the le (more content not included)...[facility]11-23-2022 History of Present illness Narrative* Lanre Padilla DO - 02/24/2022 1:13 PM EST Referring Provider: Lanre Padilla DO Date: February 24, 2022 Chief Complaint: Established Patient Follow-Up HISTORY OF PRESENT ILLNESS: Kiara Haywood is a 81 year old male who presents for Established Patient Follow-Up. ALLERGIES No Known Allergies PAST MEDICAL HISTORY: PAST MEDICAL HISTORY Diagnosis Date Abnormal stress test Atypical chest pain CAD in [place] artery Edema of lower extremity History of coronary artery stent placement 04/26/2012 proximal LAD promus element stent History of stress test 05/31/2018 no evidence of ischemia or infarction EF 54% History of stress test 10/03/2013 small inferoapical scar no reversible ischemia EF 59% History of stress test 02/12/2021 normal exercise stress perfusion imaging normal LV systolic function EF 50% Hypertension Leg edema, right Mixed hyperlipidemia NELLY (obstructive sleep apnea) Prostate cancer (HCC) Right knee pain Snores PAST SURGICAL HISTORY Procedure Laterality Date ARTHRP KNE CONDYLE&PLATU MEDIAL&LAT COMPARTMENTS Bilateral 04/2015 BACK SURGERY HX 2002 L5-6 microdecompression 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 NOSE SURGERY HX 08/2016 sinus cleaning and deviated septum repair PAST SURGICAL HISTORY OF 2002 bracky therapy- seed implant for prostate cancer PATIENT HAS A CORONARY ARTERY STENT 2012 PROSTATE BIOPSY 2002 PROSTATE BIOPSY 2001 SHOULDER SURGERY HX Left 2001 spur removal TONSILLECTOMY HX 03/2017 FAMILY HISTORY Problem Relation Age of Onset other (unknown COD) Mother 99 other (unknown COD) Father 92 No Known Problems Sister No Known Problems Brother No Known Problems Brother No Known Problems Brother SOCIAL HISTORY: Tobacco Use: Never Alcohol Use: Not Currently Drug Use: Not on file Employer And Job Title: None on file Years Of Education Completed: Not specified Marital Status: MEDICATIONS: Current Outpatient Medications Medication Sig celecoxib (CELEBREX) 100 mg capsule Take 100 mg by mouth once daily. Vitamin E, dl, acetate, (VITAMIN E) 200 unit capsule twice daily. atorvastatin (LIPITOR) 40 mg tablet Take 40 mg by mouth once daily. azelastine (ASTELIN) 0.1% nasal spray place 1 spray into each nostril twice a day levothyroxine (SYNTHROID) 88 mcg tablet Take 88 mcg by mouth once daily. gluc samayoa/chondro samayoa A/vit C/Mn (GLUCOSAMINE-CHONDROITIN COMPLX ORAL) Take by mouth twice daily. lycopene 10 mg cap Take by mouth once daily. Magnesium Oxide-Mg Amino Acid Chelate (MAGNESIUM) 300 mg cap Take by mouth once daily. Niacin 250 mg tablet Take 250 mg by mouth daily with breakfast. fish,bora,flax oils-om3,6,9no1 (OMEGA 3-6-9) 1,200 mg cap Take 2 capsules by mouth twice daily. coenzyme Q10 (COENZYME Q-10) 100 mg cap capsule Take 200 mg by mouth twice daily. Ascorbic Acid 1,000 mg tablet Take 2,000 mg by mouth twice daily. cholecalciferol (VITAMIN D3) 5,000 unit tab Take 5,000 Units by mouth twice daily. No current facility-administered medications for this visit. I have personally reviewed the patients past medical history including social, family, surgical, diagnostics, and medications. REVIEW OF SYSTEMS: Review of Systems Constitutional: Negative for chills and fatigue. Respiratory: Negative for chest tightness and shortness of breath. Cardiovascular: Negative for chest pain, palpitations and leg swelling. Neurological: Negative for dizziness, syncope, weakness and light-headedness. Hematological: Does not bruise/bleed easily. Psychiatric/Behavioral: Negative for confusion and hallucinations. Vitals: BP 152/90 (BP Site: Left Arm, BP Position: Sitting) Pulse 81 Ht 180.3 cm (5' 11) Wt 108.9 kg(240 lb) BMI 33.47 kg/m PHYSICAL EXAMINATION: BP 152/90 (BP Site: Left Arm, BP Position: Sitting) Pulse 81 Ht 180.3 cm (5' 11) Wt 108.9 kg(240 lb) BMI 33.47 kg/m Last 3 Encounter BP Readings: Date: BP: 02/24/2022 152/90 02/02/2021 138/84 03/21/2020 140/90 Last 3 Encounter Pulse Readings: Date: Pulse: 02/24/2022 81 02/02/2021 82 03/21/2020 70 Last 3 Encounter Wt Readings: Date: Wt: 02/24/2022 108.9 kg (240 lb) 02/02/2021 104.8 kg (231 lb) 03/21/2020 109.8 kg (242 lb) Physical Exam Vitals reviewed. Constitutional: General: He is not in acute distress. Appearance: Normal appearance. HENT: Head: Normocephalic. Right Ear: External ear normal. Left Ear: External ear normal. Nose: Nose normal. Mouth/Throat: Mouth: Mucous membranes are moist. Eyes: Extraocular Movements: Extraocular movements intact. Cardiovascular: Rate and Rhythm: Normal rate and regular rhythm. Pulses: Normal pulses. Carotid pulses are 2+ on the right side and 2+ on the left side. Radial pulses are 2+ on the right side and 2+ on the left side. Posterior tibial pulses are 2+ on the right side and 2+ on the left side. Heart sounds: Normal heart sounds. No murmur heard. Pulmonary: Effort: Pulmonary effort is normal. Breath sounds: Normal breath sounds. Abdominal: General: Abdomen is flat. Bowel sounds are normal. Palpations: Abdomen is soft. Tenderness: There is no abdominal tenderness. Musculoskeletal: General: Normal range of motion. Cervical back: Normal range of motion. Right lower leg: No edema. Left lower leg: No edema. Skin: General: Skin is warm. Capillary Refill: Capillary refill takes 2 to 3 seconds. Findings: No rash or wound. Neurological: General: No focal deficit present. Mental Status: He is alert and oriented to person, place, and time. Mental status is at baseline. Coordination: Coordination is intact. Psychiatric: Mood and Affect: Mood normal. Thought Content: Thought content normal. Judgment: Judgment normal. LABS: No results found for: GLUC, K, NA, CHLOR, CO2, CREAT, BUN, ANION, CA, TPROT, ALB, TBILI, ALKPHOS, AST, ALT No results found for: HB, HCT, WBC No results found for: CHOL, HDL, LDL, TG EKG: DIAGNOSTIC TEST RESULTS: Recent Results (from the past 24 hour(s)) ECG COMPLETE Collection Time: 02/24/22 2:10 PM Result Value Ref Range Ventricular Rate 81 BPM Atrial Rate 81 BPM P-R Interval 260 ms QRS Duration 90 ms QT Interval 368 ms QTC Calculation (Bazett) 427 ms Calculated P [place] -7 degrees Calculated R [place] 56 degrees Calculated T [place] -2 degrees Narrative NAME : KIARA HAYWOOD PID : [id number] : 1940 Gender : Male Race : ORD : [id number] Procedure Date : Feb 24 2022 14:10:41 Edit Date : Feb 24 2022 13:10:29 Diagnosis: SINUS RHYTHM WITH SINUS ARRHYTHMIA WITH 1ST DEGREE AV BLOCK MINIMAL VOLTAGE CRITERIA FOR LVH, MAY BE NORMAL VARIANT NONSPECIFIC ST AND T WAVE ABNORMALITY ABNORMAL ECG NO PREVIOUS ECGS AVAILABLE Test Reason : Location : [facility] Overread By : , Edited By : , Referred By : LANRE PADILLA Acquired by : , Impression SINUS RHYTHM WITH SINUS ARRHYTHMIA WITH 1ST DEGREE AV BLOCK MINIMAL VOLTAGE CRITERIA FOR LVH, MAY BE NORMAL VARIANT NONSPECIFIC ST AND T WAVE ABNORMALITY ABNORMAL ECG NO PREVIOUS ECGS AVAILABLE ASSESSMENT/PLAN: 1. Essential hypertension, benign - ICD9: 401.1, ICD10: I10 (primary diagnosis) Patient's blood pressure in the office today was recorded as 152/90. Target systolic BP 140 or lessand diastolic BP 90 or less. Continue current medications. - ECG COMPLETE today's EKG is sinus normocytic ST-T wave changes 2. Mixed hyperlipidemia - ICD9: 272.2, ICD10: E78.2 Patient is currently taking atorvastatin every day. No recent labs. Lipids are managed by PCP. Her goal is LDL under 70 3. CAD in [place] artery - ICD9: 414.01, ICD10: I25.10 Chronic condition known to have a stent in LAD reviewed the last heart catheterization. Revealed that there was intervention completed. The patient is now able to have class I activity. Denies any chest pain heaviness pressure tightness.. Able to meet daily needs. 4. History of coronary artery stent placement - ICD9: V45.82, ICD10: Z95.5 Stents done 04/26/12 showed proximal LAD promus element stent 5. History of stress test - ICD9: V15.89, ICD10: Z92.89 Stress test done 02/12/21 showed normal exercise stress perfusion imaging normal LV systolic function EF 50% 6. Non-smoker - ICD9: V49.89, ICD10: Z78.9 Patient has never been a smoker IJennifer Tech , scribing for Dr. Lanre Padilla. Follow up in: 1 year Prior to entering the room, I reviewed the last progress note including the diagnosis and plan of action. When available, I then reviewed the last heart catheterization, stress test, echocardiogram and EKG. I proceeded to review the medial therapy and any side effects the patient may have had in the past. I was able to look at the last several EKGs. A new EKG was performed today and an interetation was performed. I reviewed its interpretation with the family and compared it to the previous EKGsthat we have in the medical records. Changes were described to the patient. In a pictorial format; I described the TN and QRS intervals. This was to show the effects of antiarrhythmic therapy on the e lectrical system. I was able to look at the past several EKG's. A new EKG was performed today and interpretation was noted. I reviewed this interpretation with the patient, and the family when available, and compared it to the previous EKG's that we have in the medical record. Since my office visit was carried out with a scribe, while in the exam room I was able to devote one hundred percent of my time in [id number] conversation with the patient. I answered all the questions and explained the diagnosis of stable angina. Greater that 51% of my time was spent with [id number] conversation with the patient. I have discussed the recommended treatment, alternative therapies and other options in detail. I've discussed the best benefit and side effects of these recommended treatments. I've attempted to answer all the questions to the patient's satisfaction and understanding. With approval, we would recommend an pursuethe current therapy such as no change. After leaving the exam room, I went back into the patient's chart and coordinated care with my nurse ordering the proper testing and medicinal changes. Letter was performed with voice recognition algorithms and sent to the referring team. The chart was completed. Including the pre-exam, exam and post- exam, the total time spent in the patient's management was greater than 15 minutes I, Dr. Lanre Padilla, have reviewed and agree with the information in the medical record. Lanre Padilla DO documented in [facility] Hospital[facility] + Plan note Future Appointments Appointment Date:02/04/2021 08:30:00 AM Scheduled Provider:ELIESER BROTHERS DO Location:[facility] Appointment Type:PC OV [facility] Evaluation + Plan note Future Appointments Appointment Date:08/26/2021 01:15:00 PM Scheduled Provider:ELIESER BROTHERS DO Location:[facility] Appointment Type:PC OV Follow Up Diagnostic Tests Pending * Antinuclear Antibody Screen, Serum 08/10/21 * Rheumatoid Factor 08/10/21 [facility] Evaluation + Plan note Future Appointments Appointment Date:08/19/2021 02:20:00 PM Scheduled Provider: Location:[facility] Appointment Type:PM EMG/NCV 2 Extremity Appointment Date:08/26/2021 01:15:00 PM Scheduled Provider:ELIESER BROTHERS DO Location:[facility] Appointment Type:PC OV Follow Up Appointment Date:09/22/2021 01:00:00 PM Scheduled Provider: Location:[facility] Appointment Type:XR Barium Swallow Modified Diagnostic Tests Pending * Aldolase 08/18/21 * Acetylcholine Receptor Binding Antibody 08/18/21 * Acetylcholine Receptor Blocking Antibody 08/18/21 * Acetylcholine Receptor Modulating Antibody 08/18/21 Future Scheduled Tests Radiology* XR Swallowing Function 09/22/21 [facility] Evaluation + Plan note Future Appointments Appointment Date:08/26/2021 01:15:00 PM Scheduled Provider:ELIESER BROTHERS DO Location:[facility] Appointment Type:PC OV Follow Up Appointment Date:09/22/2021 01:00:00 PM Scheduled Provider: Location:XRAY Appointment Type:XR Barium Swallow Modified Future Scheduled Tests Radiology* XR Swallowing Function 09/22/21 [facility] Evaluation + Plan note Future Appointments Appointment Date:03/03/2022 08:00:00 AM Scheduled Provider:ELIESER BROTHERS DO Location:[facility] Appointment Type:PC OV Follow Up [facility] Evaluation + Plan note Future Appointments Appointment Date:03/10/2022 01:00:00 PM Scheduled Provider:ELIESER BROTHERS DO Location:[facility] Appointment Type:PC OV Follow Up Appointment Date:09/01/2022 08:00:00 AM Scheduled Provider:ELIESER BROTHERS DO Location:[facility] Appointment Type:PC OV Future Scheduled Tests Laboratory* Lyme AB Early Disease 02/18/22 Radiology* CT Spine Cervical w/ Contrast 03/08/22 * XR Esophogram W/Barium Tablet 03/05/22 [facility] Evaluation + Plan note Future Appointments Appointment Date:06/19/2024 08:00:00 AM Scheduled Provider:ELIESER BROTHERS DO Location:[facility] Appointment Type:PC OV Future Scheduled Tests Laboratory* Albumin/Creatinine Ratio, Random Urine 12/20/23 [facility] Evaluation + Plan note Future Appointments Appointment Date:06/19/2024 08:00:00 AM Scheduled Provider:ELIESER BROTHERS DO Location:[facility] Appointment Type:PC OV Future Scheduled Tests Laboratory* A1C Hemoglobin 04/05/24 * Albumin/Creatinine Ratio, Random Urine 12/20/23 [facility] Evwjdeyscr note* Diagnosis Essential hypertension, benign- Primary Mixed hyperlipidemia CAD in [place] artery Coronary atherosclerosis of [place] coronary artery History of coronary artery stent placement Postsurgical percutaneous transluminal coronary angioplasty status History of stress test Other specified conditions influencing health status Non-smoker Other specified conditions influencing health status documented in this encounter [facility] note* Diagnosis Onset Date Resolution Status Encounter for examination re quired by Department of Transportation (DOT) [facility] Work Phone: evaluation note* Diagnosis Onset Date Resolution Status Encounter for examination re quired by Department of Transportation (DOT) acute Post-op pain [facility] Work Phone: evaluation noteNo assessment information available [facility] Work Phone: evaluation note* Diagnosis Essential hypertension, benign- Primary Mixed hyperlipidemia NELLY (obstructive sleep apnea) Obstructive sleep apnea (adult) (pediatric) History of coronary artery stent placement Postsurgical percutaneous transluminal coronary angioplasty status History of stress test Other specified conditions influencing health status Non-smoker Other specified conditions influencing health status documented in this encounter [facility] note* Diagnosis Essential hypertension, benign- Primary Mixed hyperlipidemia CAD in [place] artery Coronary atherosclerosis of [place] coronary artery NELLY (obstructive sleep apnea) Obstructive sleep apnea (adult) (pediatric) History of coronary artery stent placement Postsurgical percutaneous transluminal coronary angioplasty status History of stress test Other specified conditions influencing health status Non-smoker Other specified conditions influencing health status [facility] Narrative No data available for this section [facility] Hospital Discharge instructions No data available for this section [facility] Hospital Discharge instructions Additional Instructions Follow preprinted instructions for surgeons office Implant Used?: Yes [facility] Work Phone: Progress note No data available for this section [facility] Reason for referral (narrative)* Outpatient Procedure (Routine) - Closed Specialty Diagnoses / Procedures Referred By Contac t Referred To Contact [facility] Diagnoses Essential hypertension, benign Procedures ECG COMPLETE ECG ROUTINE ECG W/LEAST 12 LDS W/I&R Lanre Padilla DO [address] [place] [address] [facility] [place] [address] [place] [address] Referral ID Status Reason Start Date Expiration Date V isits Requested Visits Authorized [id number] Closed Auto-Generate d Referral 02/18/2022 02/18/2023 1 1 [facility] for referral (narrative)* Outpatient Procedure (Routine) - Pending Review Specialty Diagnoses / Procedures Referred By Contac t Referred To Contact [facility] Diagnoses Essential hypertension, benign Procedures ECG COMPLETE ECG ROUTINE ECG W/LEAST 12 LDS W/I&R Lanre aPdilla DO [address] [facility] [place] [address] [place] [address] [facility] [address] [address] Referral ID Status Reason Start Date Expiration Date Visits Requested Visits Authorized [id number] Pending Review Auto-Generat ed Referral 3 02/14/2024 1 1 [facility] for referral (narrative)* Outpatient Procedure (Routine) - New Request Specialty Diagnoses / Procedures Referred By Contac t Referred To Contact [facility] Diagnoses Essential hypertension, benign Procedures ECG COMPLETE ECG ROUTINE ECG W/LEAST 12 LDS W/I&R Lanre Padilla DO [address] [place] [address] [facility] [place] [address] [place] [address] Referral ID Status Reason Start Date Expiration Date Visits Requested Visits Authorized [id number] New Request Auto-Generat ed Referral 02/14/2025 1 1 [facility] Summary Purpose Family History No Family History Records Found Relationship Condition Age at Onset Recorded Date/T rebecca Unknown Family History?- Unknown April 6:37pm Family History?- Unknown April 6:37pm Family History?- Unknown March 022020 8:37am Relationship Condition Age at Onset Recorded Date/T rebecca Unknown Family History?- Unknown April 7:37pm Family History?- Unknown April 7:37pm Family History?- Unknown March 022020 9:37am Advance Directives No Advanced Directives Records Found Advance Directive Response Recorded Date/ Time Advance Directives Yes February 8:37am Living Will Yes March 02, 8:37am Power of Rehab Assistant Yes March 02, 2021 8:37am Advance Directive Response Recorded Date/ Time Advance Directives Yes February 8:37am Living Will Yes April 21 9:26am Power of Rehab Assistant Yes April 21, 2022 9:26am Advance Directive Response Recorded Date/ Time Name of Medical Power of Rehab Assistant YAAKOV CHASTITY May 06, 2022 8:22pm Advance Directives Yes February 8:37am Living Will Yes May 06 8:22pm Power of Rehab Assistant Yes May 06, 2022 8:22pm Advance Directive Response Recorded Date/ Time Advance Directives Yes February 9:37am Living Will Yes May 06 9:22pm Power of Rehab Assistant Yes May 06, 2022 9:22pm Chief Complaint and Reason for Visit Chief Complaint DOT PHYSICAL/CHASTITY L AND EQUIP DYSPHAGIA Reason for Visit Encounter for examin ation required by Department of Transportation (DOT) Chief Complaint DOT PHYSICAL/CHASTITY L AND EQUIP DYSPHAGIA RT SHOULDER *TORNIER PROTOCOL* Reason for Visit Encounter for examin ation required by Department of Transportation (DOT) Chief Complaint DOT PHYSICAL/CHASTITY L AND EQUIP DYSPHAGIA RT SHOULDER *TORNIER PROTOCOL* PREOP RT TOTAL SHOULDER REVERSE Reason for Visit Encounter for examin ation required by Department of Transportation (DOT) Post-op pain Chief Complaint SPONDYLOLIDTHESIS ROSA MBAR Additional Source Comments (unrecognized sect ion and content) No Status Records FoundNo Status Records FoundNo Status Records FoundNo Status Records FoundNo Status Records FoundNo Status Records FoundNo Status Records Found INFORMATION SOURCE (unrecogn ized section and content) DATE CREATED AUTHOR 09/27/2017 [facility] DATE CREATED AUTHOR AUTHOR'S ORGANIZ ATION 03/04/2021 [facility] DATE CREATED AUTHOR AUTHOR'S ORGANIZ ATION 03/01/2022 [facility] DATE CREATED AUTHOR AUTHOR'S ORGANIZ ATION 03/23/2023 [facility] ([place]) DATE CREATED AUTHOR AUTHOR'S ORGANIZ ATION 02/24/2024 [facility] DATE CREATED AUTHOR AUTHOR'S ORGANIZ ATION 04/13/2024 [facility] DATE CREATED AUTHOR AUTHOR'S ORGANIZ ATION 09/05/2024 [facility] Source Comments (unrecognize d section and content) In the event this informatio n is protected by the Federal Confidentiality of Alcohol and Drug Abuse Patient Records regulations: The Federal rules restrict any use of the information to criminally investigate or prosecute any alcohol or drug abuse patient.[facility] the event this information is protected by the Federal Confidentiality of Alcohol and Drug Abuse Patient Records regulations: The Federal rules restrict any use of the information to criminally investigate or prosecute any alcohol or drug abuse patient.[facility] Hospital[facility] the event this information is protected by the Federal Confidentiality of Alcohol and Drug Abuse Patient Records regulations: The Federal rules restrict any use of the information to criminally investigate or prosecute any alcohol or drug abuse patient.[facility] Hospital[facility] the event this information is protected by the Federal Confidentiality of Alcohol and Drug Abuse Patient Records regulations: The Federal rules restrict any use of the information to criminally investigate or prosecute any alcohol or drug abuse patient.[facility] Care Team (unrecognized sect ion and content) Personnel Representative Relationship Specialty Start Date End Date Elieser Brothers DO [address] [place] [address] PCP - General Family Medicine 03/21/20 Team Status: Active Member Role Status Dates Dr. Elieser Brothers DO Family Provider Active Dr. Elieser Brothers DO Primary Care Provider Active Team Status: Inactive Member Role Status Dates Dr. Elieser Brothers DO Primary Care Provider, Referri ng Provider Active Jose Antonio COLON, PA Attending Provider Active Team Status: Inactive Member Role Status Dates Dr. Elieser Brothers DO Primary Care Provider Active Dr. Gray Garzon MD Attending Provider, Referring Provider Active Team Status: Inactive Member Role Status Dates Dr. Elieser Brothers DO Primary Care Provider Active Dr. Art Gonzales DO Attending Provider, Referrin g Provider Active Team Status: Active Member Role Status Dates Dr. Elieser Brothers DO Primary Care Provider Active Dr. Kee Dawkins MD Attending Provider Active Dr. Art Gonzales DO Referring Provider Active Team Status: Inactive Member Role Status Dates Dr. Elieser Brothers DO Primary Care Provider Active Dr. Art Gonzales DO Admit Provider , Attending Provider, Referring Provider Active Team Status: Inactive Member Role Status Dates Dr. Elieser Brothers DO Primary Care Provider Active Dr. Ravin Walker DO Attending Provider, Referring P niles Active Personnel Representative Relationship Specialty Start Date End Date Elieser Brothers DO [address] [place] [address] PCP - General Family Medicine 03/21/20 Personnel Representative Relationship Specialty Start Date End Date Elieser Brothers DO [address] [place] [address] PCP - General Family Medicine 03/21/20 Care Team (unrecognized sect ion and content) Personnel Name: ELIESER BROTHERS DO Address: Address: [address] [place] [address]- Care Team Personnel Name: ELIESER BROTHERS DO Position: P4 Physician - Primary Care Med Service: Active Provider Member Role: Primary Care Physician Address: Address: [address] [place] [address]- Care Team Related Persons Name: MARISA HAYWOOD Address: Home [address] [place] [id number] [place] Care Team Personnel Name: ELIESER BROTHERS DO Position: P4 Physician - Primary Care Member Role: Primary Care Physician Address: Address: [address] [place] [address]- Care Team Related Persons Name: MARISA HAYWOOD Address: Home [address], [place] [id number] [place] Care Team Personnel Name: ELIESER BROTHERS DO Position: P4 Physician - Primary Care Member Role: Primary Care Physician Address: Address: [address] [place] [address]- Care Team Related Persons Name: MARISA HAYWOOD Address: Home [address] [place], [place] [id number] Reason for Visit (unrecogniz ed section and content) Reason Comments Established Patient Follow-Up Reason Comments Established Patient Follow-Up 1 year fol low up Reason Comments Established Patient Follow-Up 1 year fol low up, hx of HTN. Goals (unrecognized section and content) Goals may be documented in a n alternate section FOR RECORDS PERTAINING TO PATIENTS WHO ARE OR HAVE BEEN ENROLLED IN A CHEMICAL DEPENDENCY/SUBSTANCEABUSE PROGRAM, SOME INFORMATION MAY BE OMITTED. This clinical summary was aggregated from multiple sources. Caution should be exercised in using it in the provision of clinical care. This summary normalizes information from multiple sources, and as a consequence, information in this document may materially change the coding, format and clinical context of patient data. In addition, data may be omitted in some cases. CLINICAL DECISIONS SHOULD BE BASED ON THE PRIMARY CLINICAL RECORDS. [employer] provides no warranty or guarantee of the accuracy or completeness of information in this document.
--- NOTE | 2024-09-05 07:21 | CT_ITS ---
PROCEDURE: POSTMYELOGRAM COMPUTED TOMOGRAPHY OF THE LUMBAR SPINE REASON FOR EXAM: PAIN PAIN RADIATES DOWN RIGHT LEG. TECHNIQUE: Lumbar spine CT with intrathecal contrast. Contiguous axial scans of 2.5 mm slice thicknesses. Sagittal and coronal reconstruction images were obtained. One or more dose reduction techniques were used (e.g., automated exposure control, adjustment of mA and/or kv according to patient size, use of iterative reconstruction technique). RADIATION DOSE SUMMARY: DLP: 1031.61 MGycm COMPARISON: Post myelogram CT dated 01/25/2023. FINDINGS: POST LUMBAR MYELOGRAM COMPUTED TOMOGRAPHY Straightening of the normal lumbar lordosis is redemonstrated. Mild levocurvature. Moderate to severe multilevel spondylosis. Multilevel degenerative disc disease. No abnormalities in the region of the conus medullaris which terminates at L1-L2. Hypertrophic changes are redemonstrated involving the anterior aspect of both sacroiliac joints. Aortoiliac atherosclerotic calcific changes. L1-L2: Diffuse broad-based annular bulging. Bilateral facet arthropathy. Moderate central and bilateral neural foraminal narrowing is redemonstrated. L2-L3: Severe disc space narrowing. Subchondral sclerotic changes are redemonstrated. Moderate to severe central canal and bilateral neuroforaminal narrowing. Bilateral severe facet arthropathy. Severe spondylosis. L3-L4: Moderate disc space narrowing and spondylosis. Right lateral recess narrowing. Mild retrolisthesis redemonstrated. L4-L5: Severe disc space narrowing. Marked spondylosis. No significant central canal or neuroforaminal narrowing. L5-S1: Severe disc space narrowing with vacuum disc phenomena. Moderate spondylosis. No central canal or neuroforaminal narrowing. CT/Spine Lumbar WITH Contrast IMPRESSION: 1. NO NEW CHANGES HAVE OCCURRED SINCE THE PREVIOUS LUMBAR MYELOGRAM AND POSTMYE LOGRAM CT DATED 01/25/2023. 2. MULTILEVEL SPONDYLOSIS, CENTRAL CANAL STENOSIS, AND NEUROFORAMINAL STENOSIS ARE REDEMONSTRATED. 3. OTHER NONACUTE FINDINGS ARE DOCUMENTED ABOVE. Reading Location: [place] [address]
[2024-09-05 07:25] LABS: Absolute Neutrophil Count 4.9 X10^3/uL (2.0-7.7); Basophil# 0.04 X10^3/uL; Basophil% 0.5 % (0-1); Eosinophil# 0.12 X10^3/uL; Eosinophils% 1.6 % (0-5); Hematocrit 45.2 % (40-54); Hemoglobin 15.5 g/dL (13.0-16.5); Lymphocyte % 22.2 % (19-41); Mean Corp Hgb Conc 34.3 g/dL (32-36); Mean Corpuscular Volume 90.4 fL (80-94); Mean Platelet Vol. 10.7 fl (6.2-12.0); Monocyte# 0.91 X10^3/uL; Monocyte% 11.9 % (0-10); NRBC Flagged by Analyzer 0 % (0-5); Neutrophil # 4.87 X10^3/uL (2.7-7.7); Neutrophil % 63.5 % (47-70); Platelet Count 197 K/mm3 (150-450); RBC Distribution Width CV 14.7 % (11.6-14.6); RBC Distribution Width SD 48.8 fl (35.1-43.9); White Blood Count 7.7 K/mm3 (4.4-11.0)
[2024-09-05 07:56] VITALS: BP 132/74; PULSE 69; RESP 18; TEMP 36.3; O2SAT 95; BMI 31.8
[2024-09-05 07:59] LABS: Prothrombin Time (Protime)PT. 13.9 SECONDS (11.7-14.9)
[2024-09-05 08:00] LABS: Partial Thromboplast Time 27.9 Seconds (24.1-36.2)
--- NOTE | 2024-09-05 08:30 | RAD_ITS ---
PROCEDURE: LUMBAR MYELOGRAM 09/05/2024 REASON FOR EXAM: PAIN TECHNIQUE: 4 view(s) of the lumbar spine COMPARISON: 08/09/2024 lumbosacral spine. Lumbar myelogram and post lumbar myelogram CT dated 01/25/2023. FINDINGS: LUMBAR MYELOGRAM Informed consent was obtained. The patient was given the opportunity to ask questions. Patient was positioned on the fluoroscopic table in a prone position, slightly oblique. The L3-L4 level was selected to perform the lumbar puncture. Following documentation of the site of puncture, sterile preparation of the skin was performed in the usual fashion. Local anesthesia was accomplished with lidocaine 2%. A 20 gauge, 3-1/2 inch spinal needle was slowly advanced into the lumbar subarachnoid space. Clear spinal fluid was documented. Approximately 8 mL of Isovue 200 was injected intrathecally. Fluoroscopic documentation of the intrathecal placement of contrast was made. RAD/Lumbar Myelogram IMPRESSION: 1. SUCCESSFUL LUMBAR MYELOGRAM. PATIENT WAS SENT TO THE CT SCAN SUITE FOR FUR THER IMAGING. Reading Location: [place] [address]
[2024-09-05] MEDS: Lidocaine 2% (5ml sdv) 5 ML VIAL.MPF INFILT (08:40)
[2024-09-05 09:05] VITALS: BP 154/95; PULSE 72; RESP 18; TEMP 36.8; O2SAT 96
[2024-09-05 09:50] VITALS: BP 132/74; BP 154/90; PULSE 74; RESP 18; TEMP 36.6; O2SAT 97
== END | disposition home or self-care (01) ==
PROVIDERS: Radiology Diagnostic Radiology; PCP Nurse Practitioner Family; Referring Provider Student in an Organized Health Care Education/Training Program; Visit Provider Student in an Organized Health Care Education/Training Program
DX: Z01.812 Encounter for preprocedural laboratory examination (principal); M48.062 Spinal stenosis, lumbar region with neurogenic claudication
CPT/HCPCS: 36415; 62304; 72132; 85025; 85610; 85730